=== PATIENT | male | born 1935 | race Caucasian/White ===

== ENCOUNTER → 2017-12-03 | Outpatient (CLI) | payer MEDICARE ==
--- NOTE | 2017-12-03 10:57 | ECHOS ---
STRESS ECHOCARDIOGRAM INDICATIONS: Chest pain. BASELINE HEART RATE: 77 BASELINE BLOOD PRESSURE: 110/39 MAXIMUM HEART RATE: 131 MAXIMUM BLOOD PRESSURE: 160/42 85% MPHR: 119 100% MPHR: 140 METS: 7.0 MAXIMUM STAGE REACHED: 2 TOTAL EXERCISE TIME: 5:00 CLINICAL INFORMATION: Baseline rhythm is sinus mechanism, normal axis and intervals, normal echocardiogram, rate off 77, baseline blood pressure 110/39 mmHg. Patient exercised on Maycol protocol for 5 minute reaching peak rate 131 beats per minute which is equal to 93% maximum predicted heart rate. Peak blood pressure 160/42 mmHg. Test was terminated due to fatigue and dyspnea. There was no chest pain. Electrocardiograph monitoring revealed [address]-segment depression inferolateral leads that resolved slowly in recovery. FINDINGS: Baseline echocardiogram revealed normal function at peak exercise, there was mild hypokinesis in the inferolateral leads that improved in recovery. CONCLUSION: 1. Good exercise tolerance with positive electrocardiograph stress testing. 2. Probably abnormal stress echocardiogram because of the quality of the images raising the possibility of inferolateral wall ischemia. MMODL / IJN: [id number] /
--- NOTE | 2017-12-03 11:09 | HP ---
HISTORY AND PHYSICAL Patient will be admitted to undergo cardiac catheterization on December 05, 2017. Mr. Kearney is an 82-year-old male with known history of hypertension, hyperlipidemia, diabetes mellitus, who has been complaining of progressive dyspnea on exertion without associated chest discomfort. He has no history of peripheral edema. No PND. No orthopnea. No dizziness. No palpitation or syncope. He has underwent a stress echocardiogram where he walked for 5 minutes, had a [address]-segment depression with questionable inferolateral wall hypokinesis at peak exercise. Patient has no prior stress test. He has questionable history of stroke in the past. His coronary risk factors are remarkable for diabetes, hypertension, hyperlipidemia. He stopped smoking over 30 years ago. MEDICATIONS INCLUDE:: 1. Aspirin. 2. Allopurinol 100 mg daily. 3. Janumet 50-1000 twice a day. 4. Crestor 10 mg daily. 5. Lisinopril 2.5 mg daily. 6. Vitamin C. 7. Insulin. REVIEW OF SYSTEMS: RESPIRATORY SYSTEM: There is no history of documented asthma, emphysema or bronchitis. GI SYSTEM: No recent GI bleeding. No peptic ulcer disease. SYSTEM: No dysuria or hematuria. NERVOUS SYSTEM: No stroke or seizure. PHYSICAL EXAMINATION: An 82-year-old male, alert, oriented, in no apparent distress. Appears younger than stated age. Blood pressure 130/70 with a heart rate in the 60s. HEAD: Normocephalic. EYES: Sclerae nonicteric. NECK: Good upstroke, no bruit, no shunts. CHEST: Clear to auscultation. HEART: Regular rate and rhythm, S1, S2. No S3. No rub or gallop. ABDOMEN: Soft, nontender, positive bowel sounds, no organomegaly. EXTREMITIES: No edema, intact pulses. IMPRESSION: 1. Symptoms of progressive dyspnea on exertion with abnormal stress echocardiogram consistent with stress-induced ischemia. 2. Hypertension. 3. Hyperlipidemia. 4. Diabetes mellitus. RECOMMENDATION: I recommend proceeding with coronary angiography to assess his status and guide his treatment. The rationale behind the procedures, risks and complication were discussed with the patient who is in full understanding and agreement. An echocardiogram with Doppler will be obtained and depending on the results of testing, further recommendation will be made. MMODL / IJN: [id number] /
== END | disposition home or self-care (01) ==
LOC: RADNMMAIN 08:39
PROVIDERS: ATTEND Internal Medicine
DX: I20.8 Other forms of angina pectoris (principal)
CPT/HCPCS: 93351

== ENCOUNTER → 2017-12-03 | Outpatient (CLI) | payer MEDICARE ==
[2017-12-03 13:31] LABS: Basophils % (A) 1 %; Eosinophils # (A) 0.2 k/uL (0-0.7); Eosinophils % (A) 3 %; HCT 43.2 % (39.0-53.0); Lymphocytes # (A) 1.8 k/uL (1.0-4.8); Lymphocytes % (A) 29 %; MCH 29.1 pg (25.0-35.0); MCHC 32.4 g/dL (31.0-37.0); MCV 89.6 fL (80.0-100.0); Mean Platelet Volume 8.5; Monocytes # (A) 0.3 k/uL (0-1.0); Monocytes % (A) 5 %; Neutrophils # (A) 3.7 k/uL (1.3-7.7); Neutrophils % (A) 60 %; Platelet Count 103 k/uL (150-450); RBC 4.82 m/uL (4.30-5.90); RDW 14.7 % (11.5-15.5); WBC 6.1 k/uL (3.8-10.6)
[2017-12-03 13:32] LABS: ALT 38 U/L (21-72); AST 48 U/L (17-59); Albumin 4.3 g/dL (3.5-5.0); Alkaline Phosphatase 84 U/L (38-126); Anion Gap 7 mmol/L; Blood Urea Nitrogen 16 mg/dL (9-20); Calcium 9.8 mg/dL (8.4-10.2); Carbon Dioxide 26 mmol/L (22-30); Chloride 110 mmol/L (98-107); Glucose 141 mg/dL (74-99); Sodium 143 mmol/L (137-145); Total Bilirubin 0.7 mg/dL (0.2-1.3); Total Protein 7.2 g/dL (6.3-8.2)
== END | disposition home or self-care (01) ==
LOC: LABWHC1 11:28
PROVIDERS: ATTEND Nurse Practitioner
DX: Z01.812 Encounter for preprocedural laboratory examination (principal); R06.02 Shortness of breath
CPT/HCPCS: 36415; 80053; 85025

== ENCOUNTER → 2017-12-03 | Outpatient (CLI) | payer MEDICARE ==
--- NOTE | 2017-12-03 16:04 | ECHOF ---
Referral Reason:Shortness of Breath, EKG Changes MEASUREMENTS -------- HEIGHT: 177.8 cm WEIGHT: 104.3 kg BP: 110/49 RVIDd: 3.3 cm (< 3.3) IVSd: 1.1 cm (0.6 - 1.1) LVIDd: 5.4 cm (3.9 - 5.3) LVPWd: 1.0 cm (0.6 - 1.1) IVSs: 1.6 cm LVIDs: 3.6 cm LVPWs: 1.4 cm LA Diam: 2.7 cm (2.7 - 3.8) LAESV Index (A-L): 19.53 ml/m Ao Diam: 3.5 cm (2.0 - 3.7) AV Cusp: 2.2 cm (1.5 - 2.6) MV EXCURSION: 18.395 mm (> 18.000) MV EF SLOPE: 43 mm/s (70 - 150) EPSS: 1.3 cm MV E Stevenson: 0.64 m/s MV DecT: 222 ms MV A Stevenson: 0.73 m/s MV E/A Ratio: 0.87 RAP: 5.00 mmHg RVSP: 24.71 mmHg FINDINGS -------- Sinus rhythm. This was a technically good study. The left ventricular size is normal. There is borderline concentric left ventricular hypertrophy. Overall left ventricular systolic function is normal with, an EF between 55 - 60 %. The right ventricle is mildly enlarged. Normal LA size by volume 22+/-6 ml/m2. The right atrium is normal in size. Lipomatous Hypertrophy of the atrial septum is present The aortic valve is trileaflet and appears structurally normal. The mitral valve is normal. Mild tricuspid regurgitation present. Right ventricular systolic pressure is normal at < 35 mmHg. There is no pulmonic regurgitation present. The aortic root size is normal. IVC Not well visulized. There is no pericardial effusion. CONCLUSIONS -------- 1. Sinus rhythm. 2. This was a technically good study. 3. The left ventricular size is normal. 4. There is borderline concentric left ventricular hypertrophy. 5. Overall left ventricular systolic function is normal with, an EF between 55 - 60 %. 6. The right ventricle is mildly enlarged. 7. Normal LA size by volume 22+/-6 ml/m2. 8. Lipomatous Hypertrophy of the atrial septum is present 9. The aortic valve is trileaflet and appears structurally normal. 10. The mitral valve is normal. 11. Mild tricuspid regurgitation present. 12. Right ventricular systolic pressure is normal at < 35 mmHg. 13. There is no pulmonic regurgitation present. 14. The aortic root size is normal. 15. IVC Not well visulized. 16. There is no pericardial effusion. MILK DRIER: Kylie Pizano RDCS
== END | disposition home or self-care (01) ==
LOC: RADECHMAIN 10:56
PROVIDERS: ATTEND Internal Medicine Interventional Cardiology
DX: I07.1 Rheumatic tricuspid insufficiency (principal)
CPT/HCPCS: 93306

== ENCOUNTER 2017-12-05 05:51 | Day surgery (SDC) | payer MEDICARE ==
[2017-12-05] MEDS ORDERED: NITROGLYCERIN SL TABS 0.4 MG TAB SUBLINGUAL PRN (06:20)
[2017-12-05] MEDS ORDERED: ASPIRIN 325 MG TAB PO STA (06:20)
[2017-12-05] MEDS ORDERED: ATORVASTATIN 80 MG TAB PO STA (06:20)
[2017-12-05] MEDS ORDERED: ALPRAZolam 0.25 MG TAB PO PRN (06:20)
[2017-12-05] MEDS ORDERED: ALPRAZolam 0.5 MG TAB PO PRN (06:20)
[2017-12-05] MEDS ORDERED: SODIUM CHLORIDE 0.9% 1,000 ML in EMPTY BAG 1 BAG IV ONE (06:20)
[2017-12-05 07:17] LABS: Glucose,Whole Blood 156 mg/dL (75-99)
[2017-12-05] MEDS ORDERED: fentaNYL (PF) 50 MCG/ML 2 ML AMP ONE (07:33)
[2017-12-05] MEDS ORDERED: LIDOCAINE 1% INJ 10MG/ML (20 ML MDV) ONE (07:33)
[2017-12-05] MEDS ORDERED: VERAPAMIL 2.5 MG/ML 2 ML AMP ONE (07:33)
[2017-12-05] MEDS ORDERED: fentaNYL (PF) 50 MCG/ML 2 ML AMP IV ONE (07:43)
[2017-12-05] MEDS ORDERED: LIDOCAINE 1% INJ 10MG/ML (20 ML MDV) SQ ONE (07:53)
[2017-12-05] MEDS ORDERED: VERAPAMIL SYRINGE (5 MG/10 ML) INTRAARTER ONE ×2 (07:54→07:55)
[2017-12-05] MEDS ORDERED: BIVALIRUDIN BOLUS 250 MG/50 ML IV ONE (08:03)
[2017-12-05] MEDS ORDERED: TICAGRELOR 90 MG TAB ONE (08:04)
[2017-12-05] MEDS ORDERED: BIVALIRUDIN 250 MG in SODIUM CHLORIDE 0.9% 50 ML IV ONE ×2 (08:04→09:01)
[2017-12-05] MEDS ORDERED: TICAGRELOR 90 MG TAB PO ONE (08:06)
[2017-12-05] MEDS ORDERED: IOPAMIDOL-370 125ML BTL INJ ONE (08:15)
[2017-12-05] MEDS ORDERED: IOPAMIDOL-370 100ML BTL INJ ONE ×3 (09:36→09:48)
[2017-12-05] MEDS ORDERED: RX INFO: IV CONTRAST WAS GIVEN 1 EACH MISC MISCELLANE PRN (09:58)
[2017-12-05] MEDS ORDERED: SODIUM CHLORIDE 0.9% 1,000 ML IV SCH (10:00)
[2017-12-05 11:01] VITALS: BMI 31.5
--- NOTE | 2017-12-05 12:05 | CC ---
CARDIAC CATHETERIZATION REPORT Mr. Mesa is an 82-year-old male with a known history of hypertension, hyperlipidemia, diabetes mellitus who has been complaining of dyspnea on exertion. Underwent a stress test where he had ST-segment depression as well as evidence of stress-induced ischemia involving the lateral wall. In view of that, recommendation made regarding cardiac catheterization. The procedures, risks and complications were discussed with the patient who is in full understanding and agreement. PROCEDURE: Patient was brought to the cathode builder in a fasting semi-sedated state after receiving fentanyl and Benadryl and achieving moderate conscious sedated state. Using Xylocaine anesthesia and Seldinger technique, a 6-Welsh sheath was introduced in the right radial artery. Selective right and left angiography performed using 5-Welsh 3.5 bend right and left Nathaniel catheter, multiple views of the coronary artery including hemiaxial views were obtained. Following that, the catheter were removed, images were reviewed. FLUOROSCOPY: There was severe calcification involving all of the coronary arteries. LEFT MAIN: This is a large-sized vessel bifurcating into left circumflex, left anterior descending artery, left main coronary artery has no evidence of high-grade stenosis. LEFT ANTERIOR DESCENDING ARTERY: This is a large-sized vessel reaching toward the apex with a wraparound apex segment, giving rise to two diagonal branch, the left anterior descending artery and the proximal mid segment has intimal disease with area of stenosis of 30% to 40% without any evidence of high-grade stenosis. LEFT CIRCUMFLEX: This is a large nondominant vessel giving rise to 2 obtuse marginal branch in the proximal left circumflex and a calcified tortuous segment that has a 99% stenosis. The rest of the vessel has no high-grade stenosis. RIGHT CORONARY ARTERY: This is a large dominant vessel, bifurcating into PDA and posterolateral segment branches. The right coronary artery in mid segment has diffuse intimal disease of 30%. The rest of the vessel has no high-grade stenosis. LEFT VENTRICULOGRAM: Left ventriculogram was not performed. CONCLUSION: 1. Heavily calcified coronary arteries. 2. Severe critical stenosis involving the proximal left circumflex. 3. Mild to moderate disease in the left anterior descending artery and right coronary artery. RECOMMENDATION: In view of finding anatomy, I recommend proceeding with angioplasty and stenting. The procedures, risks and complications were discussed with the patient who is in full understanding and agreement. MMODL / IJN: [id number] /
--- NOTE | 2017-12-05 12:14 | PTCA ---
PERCUTANEOUSTRANS CORORONARY ANGIOGRAPHY Mr. Mesa is an 82-year-old male with known history of hypertension, hyperlipidemia, and diabetes mellitus, who has had an abnormal stress echocardiogram and was symptomatic, underwent cardiac catheterization, was found to have heavily calcified coronary arteries with critical stenosis involving the proximal left circumflex. In view of that, recommendation was made regarding angioplasty and stenting. The procedure as well as the risks and complication were discussed with the patient who is in full understanding and agreement. PROCEDURE: A 6-Cymro FL 3.5 guiding catheter introduced in system. After cannulating the left main a 0.014 balanced medium weight J-wire was advanced across the lesion and positioned in the distal obtuse marginal branch. Subsequently, a 3.0 x 12 mm Trek balloon was advanced that was unable to cross the lesion that balloon was removed and attempt to advance a 2.0 x 8 mm Trek balloon were unsuccessful as well. The balloon was removed and a whisper 0.014 J-wire was advanced next to the first one and positioned distally. Subsequently attempt to advance the 2.0 x 8 balloon were unsuccessful. That was removed, then a 1.5 x 6 mm Trek balloon was advanced and the balloon will not advance. That balloon was removed and a GuideLiner was advanced after removing the BMW J. Subsequently the 1.5 x 6 mm Trek balloon was advanced and inflations were done. After removing that balloon, a 2.0 x 6 mm Trek balloon was advanced and inflations were done. After that, the balloon was removed and a 3.0 x 12 mm Trek balloon was advanced and inflation up to 20 atmospheres were done inability to open up the lesion completely. After removing that balloon, attempt to advance a 3.0 x 10 mm AngioSculpt balloon were unsuccessful. That was removed and attempt to advance a 3.25 x 12 mm NC Trek was unsuccessful as well as a 2.0 x 8 NC Trek was unsuccessful. At that point, another 0.014 whisper J-wire was advanced distally and exchanged over a FineCross to the Viper stent. After removing the the FineCross, 360 rotational arthrectomy was performed 3 runs. After removing that and exchanging the wire back to whisper J wire and advancing the GuideLiner, attempt to advance the Trek 3.0 x 12 mm was unsuccessful. Subsequently a 2.5 x 8 mm NC Trek balloon was advanced and inflation up to 10 atmospheres were done. The balloon was removed and the GuideLiner was removed. Another whisper J-wire was advanced with the help of the Anjali. The wire was exchanged to a Mailman. Attempt to advance the 3.0 x 12 mm balloon over the Mailman and over the whisper were unsuccessful. At that point, the guiding catheter, the balloon and the guidewire were removed the sheath was removed. Hemostasis was obtained with deployment of a TR band. There was no immediate complication. Patient was returned to his room in stable condition. Of note, the patient received Angiomax per protocol as well as oral loading dose of Brilinta. He had no chest discomfort or EKG changes with the inflation. RESULTS: Unsuccessful angioplasty of the proximal left circumflex with reduction of stenosis from 95% to 80% in a heavily calcified angulated segment. RECOMMENDATION: Patient will be evaluated for possible single bypass surgery. Those findings and recommendation were discussed with the patient and his family and are in full understanding and agreement. Duration of procedure are 1 hour 57 minutes. MMODL / IJN: [id number] /
[2017-12-05 12:27] LABS: Glucose,Whole Blood 111 mg/dL (75-99)
[2017-12-05] MEDS ORDERED: INSULIN ASPART 100 UNIT/ML 1 ML 10 ML VIAL SQ SCH (12:30)
[2017-12-05] MEDS: INSULIN ASPART 100 UNIT/ML 1 ML 10 ML VIAL SQ SCH ×5 (12:31→21:32)
--- NOTE | 2017-12-05 12:35 | P.GSCN ---
<Gio Grant - Last Filed: 12/05/17 12:05> History of Present Illness Consult date: 12/05/17 Reason for Consult: Coronary artery disease, evaluation for myocardial revascularization. Requesting physician: Betsey Luna History of present illness: This is an 82-year-old gentleman who is followed by Dr. Abraham on an outpatient basis. He has a past medical history significant for hyperlipidemia, hypertension, diabetes mellitus type 2 insulin-dependent and a remote history of tobacco dependence which he quit over 35 years ago. Recently, the patient has been complaining of progressive shortness of breath with exertion. He denies any complaints of chest pain, peripheral edema, syncope or palpitations. Subsequently, he was seen by Dr. Luna from cardiology who performed a stress test on the patient on 12/03/2017. The stress test results showed good exercise tolerance although revealed a [address] segment depression with questionable inferolateral wall hypokinesis at peak exercise. A 2-D echocardiogram was also completed which showed a overall left ventricular systolic function to be normal with an ejection fraction between 55 and 60%, and mild tricuspid valve regurgitation. Due to the patient's complaints of progressive shortness of breath and stress test results he was recommended to undergo a cardiac catheterization. After consent was obtained Dr. Luna performed a cardiac catheterization today which demonstrated heavily calcified coronary arteries, with a 30-40% stenosis to his proximal and mid segment of his left anterior descending coronary artery, a 99% stenosis to his proximal left circumflex coronary artery, and a 30% stenosis to his right coronary artery with diffuse intimal disease. Subsequently due to his cardiac catheterization findings of a 99% proximal stenosis to his circumflex coronary artery Dr. Luna attempted an unsuccessful PTCA/arthrectomy to the circumflex coronary artery due to heavy calcification. The cardiac catheterization results were reviewed with the patient by Dr. Luna and a consult was placed to Dr. Baires from cardiothoracic surgery for evaluation for possible myocardial revascularization surgery. Review of Systems A 14 point review of systems was completed except as mentioned in HPI. Past Medical History Past Medical History: Diabetes Mellitus, Hyperlipidemia, Hypertension History of Any Multi-Drug Resistant Organisms: None Reported Past Surgical History: Appendectomy, Joint Replacement, Tonsillectomy Additional Past Surgical History / Comment(s): left knee replaced, right rotator cuff SX, COLONOSCOPY, Past Anesthesia/Blood Transfusion Reactions: No Reported Reaction Past Psychological History: No Psychological Hx Reported Smoking Status: Former smoker (Quit over 35 years ago.) Past Alcohol Use History: Rare Additional Past Alcohol Use History / Comment(s): QUIT SMOKING 35 YRS AGO Past Drug Use History: None Reported - Past Family History Mother Family Medical History: Congestive Heart Failure (CHF) Additional Family Medical History / Comment(s): Past away at age 85. Father Additional Family Medical History / Comment(s): from complication from malaria at age 27 Brother(s) Family Medical History: No Reported History Sister(s) Family Medical History: No Reported History Daughter(s) Family Medical History: No Reported History Son(s) Family Medical History: No Reported History Medications and Allergies Home Medications Medication Instructions Recorded Confirmed Type Allopurinol [Zyloprim] 100 mg PO DAILY 02/21/14 12/05/17 History Insulin Glargine,Hum.rec.anlog 80 unit SQ HS 02/21/14 12/05/17 History [Lantus Solostar] Rosuvastatin Calcium [Crestor] 10 mg PO DAILY 02/21/14 12/05/17 History sitaGLIPtin PHOS/metFORMIN HCL 1 tab PO BID 02/21/14 12/04/17 History [Janumet 50-1,000 mg Tablet] Aspirin EC [Ecotrin Low Dose] 325 mg PO BID 08/02/15 12/05/17 History Canagliflozin [Invokana] 100 mg PO DAILY 08/02/15 12/05/17 History INSULIN LISPRO (HumaLOG) [humaLOG] 10 units SQ AC-TID 08/02/15 12/04/17 History Ascorbic Acid [Vitamin C] 250 mg PO DAILY 12/04/17 12/05/17 History Isosorbide Mononitrate ER [Imdur] 30 mg PO DAILY #30 tab 12/07/17 Rx Lisinopril [Zestril] 2.5 mg PO DAILY tab 12/07/17 Rx Metoprolol Tartrate [Lopressor] 25 mg PO BID #60 tab 12/07/17 Rx Nitroglycerin Sl Tabs [Nitrostat] 0.4 mg SUBLINGUAL Q5M PRN #30 tab 12/07/17 Rx Allergies Allergy/AdvReac Type Severity Reaction Status Date / Time No Known Allergies Allergy Verified 12/04/17 12:22 Surgical - Exam Vital Signs Temp Pulse Resp BP Pulse Ox 98.7 F 58 L 18 119/59 94 L 12/05/17 06:50 12/05/17 06:50 12/05/17 06:50 12/05/17 06:50 12/05/17 06:50 - General well developed, well nourished, no distress, no pain, obese - Eyes PERRL, normal ocular movement - ENT normal pinna, normal nares, normal mucosa, decreased hearing (Hearing aids to both ears.), poor mcc (Full dentures.) - Neck Neck is supple, no lymphadenopathy. no masses, no bruits, trachea midline, no venous distension - Respiratory Lung sounds essentially clear throughout, diminished to his bilateral bases. Respirations are symmetrical and nonlabored. - Cardiovascular Regular rhythm and rate. S1 and S2 present, negative for S3, gallop or murmur. No peripheral edema. - Abdomen Abdomen is soft, nontender nondistended. Active bowel sounds all 4 abdominal quadrants. No guarding or rigidity. No organomegaly. - Genitourinary Deferred - Rectum Deferred - Integumentary no rash, no growths, no abnormal pigmentation - Neurologic normal coordination, normal sensation - Musculoskeletal normal gait, normal posture - Psychiatric oriented to time, oriented to person, oriented to place, speech is normal, memory intact Results - Labs Abnormal Lab Results - Last 24 Hours (Table) 12/05/17 Range/Units 06:58 POC Glucose (mg/dL) 156 H (75-99) mg/dL - Imaging Comments: Stress test results, 2-D echocardiogram results and cardiac catheterization results reviewed. Assessment and Plan (1) Coronary artery disease Status: Acute Code(s): I25.10 - ATHSCL HEART DISEASE OF [place] CORONARY ARTERY W/O ANG PCTRS SNOMED Code(s): 98988282 (2) Hypertension Status: Acute Code(s): I10 - ESSENTIAL (PRIMARY) HYPERTENSION SNOMED Code(s) : 54362416 (3) Hyperlipidemia Status: Acute Code(s): E78.5 - HYPERLIPIDEMIA, UNSPECIFIED SNOMED Code(s): 44836765 (4) Insulin dependent diabetes mellitus Status: Acute Code(s): E11.9 - TYPE 2 DIABETES MELLITUS WITHOUT COMPLICATIONS ; Z79.4 - GROUP HOME (CURRENT) USE OF INSULIN SNOMED Code(s): 12700770 (5) Tobacco dependence in remission Status: Acute Code(s): F17.201 - NICOTINE DEPENDENCE, UNSPECIFIED, IN REMISSION SNOMED Code(s): 192724305 Plan: Patient was seen and examined. Chart diagnostics reviewed. His case was discussed with Dr. Pavon by Dr. Luna. Preoperative teaching initiated. Preoperative testing initiated. Medical management per Dr. Abraham recommendations. Encourage use of his incentive spirometry every hour while awake. GI and DVT prophylaxis. Thank you Dr. Dr. Luna for this consult and we look forward to working with you in the care of your patient. Time with Patient: Greater than 30 <HabMontrell garcia - Last Filed: 12/08/17 11:57> Surgical - Exam Vital Signs Temp Pulse Resp BP Pulse Ox 98.7 F 58 L 18 119/59 94 L 12/05/17 06:50 12/05/17 06:50 12/05/17 06:50 12/05/17 06:50 12/05/17 06:50 Results - Labs 12/06/17 06:34 12/06/17 06:34 Abnormal Lab Results - Last 24 Hours (Table) 12/07/17 Range/Units 12:04 POC Glucose (mg/dL) 159 H (75-99) mg/dL Microbiology - Last 24 Hours (Table) 12/05/17 19:30 Nasal Screen MRSA/MSSA - Final Nasal Swab Assessment and Plan Plan: The patient was seen and examined. I agree with the above assessment and plan. The patient is an 82-year-old male, who looks good for his advanced age, who reports worsening shortness of breath with activity. Denies chest pain. A stress test was performed which revealed ischemia involving the lateral wall. Heart catheterization revealed a single lesion in the circumflex artery. PCI including atherectomy was attempted by Dr. Luna without success. Apparently the lesion is quite calcified. I was asked to evaluate him for single-vessel coronary artery bypass. We will review his studies and begin our standard preoperative workup. Further recommendations will follow.
--- NOTE | 2017-12-05 13:52 | P.CONS ---
History of Present Illness - Reason for Consult Consult date: 12/05/17 Medical management - History of Present Illness This is an 82-year-old male patient of Dr. Abraham. He has underlying history of diabetes mellitus type 2, hypertension, BPH, hyperlipidemia, remote history of tobacco use. Patient states that he went to see Dr. Abraham for his physical and he complained that when he was pulling weeds he developed shortness of breath and he had to sit down and rest. He underwent a stress test which was positive and was then scheduled for heart catheterization with Dr. Luna which found a 99% stenosis in the proximal left circumflex, 30% stenosis of right coronaries artery and diffuse intimal disease. PTCA and arthrectomy was attempted but unsuccessful of the circumflex lesion. Cardiothoracic surgery was then consulted for 1 vessel CABG. Review of Systems All systems: negative Constitutional: Reports fatigue, Denies chills, Denies fever Eyes: denies blurred vision, denies pain Ears, nose, mouth and throat: Denies headache, Denies sore throat Cardiovascular: Reports decreased exercise tolerance, Reports dyspnea on exertion, Denies chest pain, Denies lightheadedness, Denies shortness of breath , Denies syncope Respiratory: Denies cough, Denies cough with sputum, Denies dyspnea, Denies excessive sputum, Denies hemoptysis, Denies home oxygen, Denies wheezing Gastrointestinal: Denies abdominal pain, Denies diarrhea, Denies nausea, Denies vomiting Genitourinary: Denies dysuria Musculoskeletal: Denies myalgias Integumentary: Denies pruritus, Denies rash Neurological: Denies numbness, Denies weakness Psychiatric: Denies anxiety, Denies depression Endocrine: Denies fatigue, Denies weight change Past Medical History Past Medical History: Coronary Artery Disease (CAD), Diabetes Mellitus, Hyperlipidemia, Hypertension Additional Past Medical History / Comment(s): BPH History of Any Multi-Drug Resistant Organisms: None Reported Past Surgical History: Appendectomy, Joint Replacement, Tonsillectomy Additional Past Surgical History / Comment(s): left knee replaced, right rotator cuff SX, COLONOSCOPY, Past Anesthesia/Blood Transfusion Reactions: No Reported Reaction Past Psychological History: No Psychological Hx Reported Smoking Status: Former smoker Past Alcohol Use History: Occasional Additional Past Alcohol Use History / Comment(s): Patient was a smoker of one pack per day and QUIT SMOKING 35 YRS AGO. He drinks approximately 1 beer/ 3months. Past Drug Use History: None Reported - Past Family History Mother Family Medical History: No Reported History Additional Family Medical History / Comment(s): Mother had history of congenital heart disease, CHF. Father Family Medical History: No Reported History, CVA/TIA Additional Family Medical History / Comment(s): Father contracted malaria. History of CVA. Brother(s) Family Medical History: No Reported History Additional Family Medical History / Comment(s): Brother has history of headaches. Sister(s) Family Medical History: No Reported History Daughter(s) Family Medical History: No Reported History Additional Family Medical History / Comment(s): Patient has one daughter with no major medical problems. Son(s) Family Medical History: No Reported History Additional Family Medical History / Comment(s): Patient has one son with no major medical problems. Medications and Allergies Home Medications Medication Instructions Recorded Confirmed Type Allopurinol [Zyloprim] 100 mg PO DAILY 02/21/14 12/05/17 History Insulin Glargine,Hum.rec.anlog 80 unit SQ HS 02/21/14 12/05/17 History [Lantus Solostar] Rosuvastatin Calcium [Crestor] 10 mg PO DAILY 02/21/14 12/05/17 History sitaGLIPtin PHOS/metFORMIN HCL 1 tab PO BID 02/21/14 12/04/17 History [Janumet 50-1,000 mg Tablet] Aspirin EC [Ecotrin Low Dose] 325 mg PO BID 08/02/15 12/05/17 History Canagliflozin [Invokana] 100 mg PO DAILY 08/02/15 12/05/17 History INSULIN LISPRO (HumaLOG) [humaLOG] 10 units SQ AC-TID 08/02/15 12/04/17 History Lisinopril [Zestril] 2.5 mg PO DAILY 08/02/15 12/05/17 History Ascorbic Acid [Vitamin C] 250 mg PO DAILY 12/04/17 12/05/17 History Allergies Allergy/AdvReac Type Severity Reaction Status Date / Time No Known Allergies Allergy Verified 12/04/17 12:22 Physical Exam Vitals: Vital Signs Temp Pulse Pulse Resp BP BP Pulse Ox 12/05/17 10:43 75 138/66 12/05/17 10:28 79 124/82 10/05/18 10:13 58 L 137/91 97 12/05/17 06:50 98.7 F 58 L 18 119/59 134/71 94 L Intake and Output 12/04/17 12/05/17 12/05/17 22:59 06:59 14:59 Intake Total 452 Output Total 600 Balance -148 Intake: IV 352 Intake, IV Titration 100 Amount Sodium Chloride 0.9% 1, 100 000 ml @ 100 mls/hr IV . Q10H [facility] Rx#:[id number] Output: Urine 600 Other: Weight 99.7 kg 99.7 kg Gen: This is an 82-year-old male patient. He is sitting up in bed appears to be comfortable and in no acute distress. HEENT: Head is atraumatic, normocephalic. Pupils equal, round. Sclerae is anicteric. NECK: Supple. No JVD. No lymphadenopathy. No thyromegaly. LUNGS: Clear to auscultation. No wheezes or rhonchi. No intercostal retractions. HEART: Regular rate and rhythm. No murmur. ABDOMEN: Soft. Bowel sounds are present. No masses. No tenderness. EXTREMITIES: No pedal edema. No calf tenderness. NEUROLOGICAL: Patient is awake, alert and oriented x3. Cranial nerves 2 through 12 are grossly intact. Results Labs: Abnormal Lab Results - Last 24 Hours (Table) 12/05/17 Range/Units 06:58 POC Glucose (mg/dL) 156 H (75-99) mg/dL Assessment and Plan Plan: 1. Coronary artery disease with plan for 1 vessel CABG. Cardiothoracic surgery team on consult. Continue aspirin daily, Lipitor 20 mg daily 2. Diabetes mellitus type 2. Patient is normally on Lantus 80 units which will be decreased to 45 units at bedtime, NovoLog normally 10 units will be decreased to 5 units 3 times daily with meals and NovoLog scale. Invokana, Janumet will be discontinued. Hemoglobin A1c ordered. 3. Hypertension. Continue lisinopril 2.5 mg daily 4. Hyperlipidemia. Continue Lipitor. 5. Benign prostatic hypertrophy. 6. Osteoarthritis, generalized, stable. 7. Remote history of tobacco use. 8. Gout, stable. Continue allopurinol 100 mg daily. 9. GI prophylaxis. Pepcid. Patient will be admitted to the hospital for a minimum of 5 night stay. Discharge plan: To be determined is likely return home. Impression and plan of care have been directed as dictated by the signing physician. Anamaria Black nurse practitioner acting as scribe for signing physician.
--- NOTE | 2017-12-05 18:31 | US ---
EXAMINATION TYPE: US carotid duplex BILAT DATE OF EXAM: 12/05/2017 COMPARISON: NONE CLINICAL HISTORY: PreOp Cardiac Surgery. EXAM MEASUREMENTS: RIGHT: Peak Systolic Velocity (PSV) cm/sec ----- Right CCA: 78.6 ----- Right ICA: 87.9 ----- Right ECA: 95.6 ICA/CCA ratio: 1.1 RIGHT: End Diastole cm/sec ----- Right CCA: 17.5 ----- Right ICA: 19.3 ----- Right ECA: 7.6 LEFT: Peak Systolic Velocity (PSV) cm/sec ----- Left CCA: 75.3 ----- Left ICA: 104.8 ----- Left ECA: 95.0 ICA/CCA ratio: 1.4 LEFT: End Diastole cm/sec ----- Left CCA: 14.2 ----- Left ICA: 22.1 ----- Left ECA: 8.3 VERTEBRALS (direction of flow): Right Vertebral: Antegrade Left Vertebral: Antegrade Rhythm: Normal Mild amount of plaque visualized bilaterally. No elevated velocities, no significant stenosis. IMPRESSION: There is antegrade flow in the vertebral arteries. The images and measurements suggest l ess than 50% stenosis in both internal carotid arteries. Criteria for Assigning % of Stenosis / Diameter reduction (Estimation based on the indirect measurements of the internal carotid artery velocities (ICA PSV). 1. Normal (no stenosis)=ICA PSV < 125 cm/s: ratio < 2.0: ICA EDV<40 cm/s. 2. Less than 50% stenosis=ICA PSV < 125 cm/s: ratio < 2.0: ICA EDV<40 cm/s. 3. 50 to 69% stenosis=ICA PSV of 125 to 230 cm/s: ration 2.0 ? 4.0: ICA EDV 40-100 cm/s. 4. Greater than 70% stenosis to near occlusion= ICA PSV > 230 cm/s: ratio > 4.0: ICA EDV > 100 cm/s. 5. Near occlusion= ICA PSV velocities may be low or undetectable: variable ratio and ICA EDV. 6. Total occlusion=unable to detect flow.
[2017-12-05] MEDS ORDERED: INSULIN DETEMIR 100 UNIT/ML 10 ML VIAL SQ SCH (21:00)
[2017-12-05 21:12] LABS: Appearance,Urine Clear (Clear); Bilirubin,Urine Negative (Negative); Blood,Urine Negative (Negative); Color,Urine Light Yellow; Glucose,Urine (UA) Negative (Negative); Ketones,Urine Negative (Negative); Leukocyte Esterase,Urine Negative (Negative); Nitrite,Urine Negative (Negative); PH, Urine 6.5 (5.0-8.0); Protein,Urine Negative (Negative); Urobilinogen,Urine <2.0 mg/dL (<2.0)
[2017-12-05 21:29] LABS: Glucose,Whole Blood 220 mg/dL (75-99)
[2017-12-05] MEDS: INSULIN DETEMIR 100 UNIT/ML 10 ML VIAL SQ SCH (21:32)
[2017-12-05] MEDS: MUPIROCIN 2% OINT 22 GM TUBE NASAL SCH (21:33)
[2017-12-06 06:21] LABS: Glucose,Whole Blood 135 mg/dL (75-99)
--- NOTE | 2017-12-06 06:34 | XR ---
EXAMINATION TYPE: XR chest 2V DATE OF EXAM: 12/06/2017 HISTORY: PreOp Cardiac Surgery. REFERENCE: Previous study dated 01/31/2016. FINDINGS: Heart size is upper limits of normal. The lungs are clear. Pleural spaces are clear. IMPRESSION: BORDERLINE CARDIOMEGALY.
[2017-12-06] MEDS: INSULIN ASPART 100 UNIT/ML 1 ML 10 ML VIAL SQ SCH ×7 (06:36→20:56)
[2017-12-06 07:07] LABS: Basophils % (A) 1 %; Eosinophils # (A) 0.2 k/uL (0-0.7); Eosinophils % (A) 3 %; HCT 38.3 % (39.0-53.0); HGB 13.2 gm/dL (13.0-17.5); Lymphocytes # (A) 1.7 k/uL (1.0-4.8); Lymphocytes % (A) 26 %; MCH 29.6 pg (25.0-35.0); MCHC 34.4 g/dL (31.0-37.0); MCV 86.1 fL (80.0-100.0); Mean Platelet Volume 7.6; Monocytes # (A) 0.4 k/uL (0-1.0); Monocytes % (A) 6 %; Neutrophils # (A) 4.2 k/uL (1.3-7.7); Neutrophils % (A) 63 %; Platelet Count 103 k/uL (150-450); RBC 4.45 m/uL (4.30-5.90); RDW 14.7 % (11.5-15.5); WBC 6.6 k/uL (3.8-10.6)
[2017-12-06 07:14] LABS: INR 1.1 (<1.2); Partial Thromboplastin Time 25.6 sec (22.0-30.0); Prothrombin Time 10.3 sec (9.0-12.0)
[2017-12-06 07:22] LABS: ALT 47 U/L (21-72); AST 66 U/L (17-59); Albumin 3.8 g/dL (3.5-5.0); Alkaline Phosphatase 90 U/L (38-126); Anion Gap 11 mmol/L; Blood Urea Nitrogen 16 mg/dL (9-20); Calcium 9.4 mg/dL (8.4-10.2); Carbon Dioxide 20 mmol/L (22-30); Chloride 112 mmol/L (98-107); Cholesterol 139 mg/dL (<200); Glucose 130 mg/dL (74-99); HDL Cholesterol 39 mg/dL (40-60); LDL Cholesterol,Calculated 71 mg/dL (0-99); Magnesium 1.8 mg/dL (1.6-2.3); Potassium 4.6 mmol/L (3.5-5.1); Sodium 143 mmol/L (137-145); Total Protein 6.5 g/dL (6.3-8.2); Triglycerides 146 mg/dL (<150)
[2017-12-06] MEDS: ALLOPURINOL 100 MG TAB PO SCH (08:13)
[2017-12-06] MEDS: ASPIRIN 325 MG TAB PO SCH ×2 (08:13→20:57)
[2017-12-06] MEDS: ASCORBIC ACID 500 MG TAB PO SCH (08:13)
[2017-12-06] MEDS: FAMOTIDINE 20 MG TAB PO SCH (08:14)
[2017-12-06] MEDS: MUPIROCIN 2% OINT 22 GM TUBE NASAL SCH ×2 (08:16→20:57)
[2017-12-06] MEDS ORDERED: ATORVASTATIN 20 MG TAB PO SCH (09:00)
[2017-12-06] MEDS ORDERED: NON-FORMULARY DRUG (Canagliflozin [Invokana] 100 MG) PO SCH (09:00)
[2017-12-06] MEDS ORDERED: LISINOPRIL 2.5 MG TAB PO SCH (09:00)
[2017-12-06] MEDS ORDERED: MD COMMUNICATION TO PHARMACY 1 EACH MISC PO ONE ×5 (10:04)
--- NOTE | 2017-12-06 11:20 | P.PN ---
Subjective Progress Note Date: 12/06/17 This is an 82-year-old male patient of Dr. Abraham. He has underlying history of diabetes mellitus type 2, hypertension, BPH, hyperlipidemia, remote history of tobacco use. Patient states that he went to see Dr. Abraham for his physical and he complained that when he was pulling weeds he developed shortness of breath and he had to sit down and rest. He underwent a stress test which was positive and was then scheduled for heart catheterization with Dr. Luna which found a 99% stenosis in the proximal left circumflex, 30% stenosis of right coronaries artery and diffuse intimal disease. PTCA and arthrectomy was attempted but unsuccessful of the circumflex lesion. Cardiothoracic surgery was then consulted for 1 vessel CABG. 12/05: Patient denies any chest pain, shortness of breath, palpitations, or irregular heartbeat at this time. Patient is awaiting cardiothoracic surgeon to evaluate for possible surgery on Friday for a 1 vessel CABG. Discussed with patient plan of care and questions answered. Labs this morning were unremarkable. Blood sugars are stable related to adjustments of home diabetic regime and a sliding scale while in the hospital. Objective - Vital Signs Vital signs: Vital Signs Temp 97.9 F 12/06/17 08:05 Pulse 77 12/06/17 08:05 Resp 18 12/06/17 08:05 BP 116/55 12/06/17 08:05 Pulse Ox 96 12/06/17 08:05 Intake & Output 12/05/17 12/06/17 12/06/17 18:59 06:59 18:59 Intake Total 692 1000 180 Output Total 1000 Balance -308 1000 180 Weight 99.7 kg 97.7 kg Intake: IV 352 Intake, IV Titration 100 1000 Amount Sodium Chloride 0.9% 1, 100 1000 000 ml @ 100 mls/hr IV . Q10H [facility] Rx#:[id number] Oral 240 180 Output: Urine 1000 Other: # Voids 1 - Exam Gen: This is an 82-year-old male, no acute distress noted, cooperative, obese HEENT: Head is atraumatic, normocephalic. Pupils equal, round. Sclerae is anicteric. NECK: Supple. No JVD. No lymphadenopathy. No thyromegaly. LUNGS: Clear to auscultation. No wheezes or rhonchi. No intercostal retractions. HEART: Regular rate and rhythm. No murmur. ABDOMEN: Soft. Bowel sounds are present. No masses. No tenderness. EXTREMITIES: No pedal edema. No calf tenderness. NEUROLOGICAL: Patient is awake, alert and oriented x3. Cranial nerves 2 through 12 are grossly intact. - Labs CBC & Chem 7: 12/06/17 06:34 12/06/17 06:34 Labs: Abnormal Lab Results - Last 24 Hours (Table) 12/05/17 12/05/17 12/06/17 Range/Units 12:25 21:27 06:20 Hct (39.0-53.0) % Plt Count (150-450) k/uL Chloride (98-107) mmol/L Carbon Dioxide (22-30) mmol/L Glucose (74-99) mg/dL POC Glucose (mg/dL) 111 H 220 H 135 H (75-99) mg/dL AST (17-59) U/L HDL Cholesterol (40-60) mg/dL 12/06/17 12/06/17 Range/Units 06:34 06:34 Hct 38.3 L (39.0-53.0) % Plt Count 103 L (150-450) k/uL Chloride 112 H (98-107) mmol/L Carbon Dioxide 20 L (22-30) mmol/L Glucose 130 H (74-99) mg/dL POC Glucose (mg/dL) (75-99) mg/dL AST 66 H (17-59) U/L HDL Cholesterol 39 L (40-60) mg/dL Microbiology - Last 24 Hours (Table) 12/05/17 19:30 Nasal Screen MRSA/MSSA - Preliminary Nasal Swab 12/05/17 19:30 Urine Culture - Preliminary Urine,Voided Assessment and Plan Plan: 1. Coronary artery disease with plan for 1 vessel CABG. Cardiothoracic surgery team on consult. Continue aspirin daily, Lipitor 20 mg daily 2. Diabetes mellitus type 2. Patient is normally on Lantus 80 units which will be decreased to 45 units at bedtime, NovoLog normally 10 units will be decreased to 5 units 3 times daily with meals and NovoLog scale. Invokana, Janumet will be discontinued. Awaiting results of hemoglobin A1c. 3. Hypertension. Continue lisinopril 2.5 mg daily 4. Hyperlipidemia. Continue Lipitor. 5. Benign prostatic hypertrophy, stable. 6. Osteoarthritis, generalized, stable. 7. Remote history of tobacco use. 8. Gout, stable. Continue allopurinol 100 mg daily. 9. GI prophylaxis. Pepcid. 10.0 SSI prophylactics. mupirocin Impression and plan of care have been directed as dictated by the signing physician. Rhiannon Bagley nurse practitioner acting as scribe for signing physician.
--- NOTE | 2017-12-06 11:23 | CT ---
EXAMINATION TYPE: CT chest wo con DATE OF EXAM: 12/06/2017 COMPARISON: HISTORY: pre-op scan CT DLP: 522.1 mGycm. Automated Exposure Control for Dose Reduction was Utilized. TECHNIQUE: CT scan of the thorax is performed without IV contrast. FINDINGS:The lungs are clear. There is bilateral gynecomastia. There is no significant axillary adenopathy. There is some shotty mediastinal adenopathy. No definite hilar adenopathy is seen. There is no pleural or pericardial fluid. The heart is not enlarged. There is vascular calcification including the coronary arteries. Visualized portions of the upper abdomen are unremarkable. There is hypertrophic spondylosis within the spine. IMPRESSION: 1. Bilateral gynecomastia. 2. Arterial calcification including the coronary arteries.
--- NOTE | 2017-12-06 11:46 | P.PN ---
Subjective Progress Note Date: 12/06/17 Principal diagnosis: Coronary artery disease, diabetes mellitus type 2 insulin-dependent, hypertension, hyperlipidemia, BPH, remote history of back or dependence quit 35 years ago. The patient is up ambulating in his room. He denies any complaints of pain or shortness of breath at this time. Dr. Dequan martinez met with him this morning and discussed the risks and benefits of myocardial revascularization surgery. He remains afebrile. Bedside FEV1 was completed which showed a value of 82% of predicted. He is achieving 2200 mL on his incentive spirometry. He wishes to proceed with myocardial revascularization surgery which will be scheduled for Friday12/09/2017. Objective - Vital Signs Vital signs: Vital Signs Temp 97.5 F L 12/06/17 03:34 Pulse 80 12/06/17 03:34 Resp 16 12/06/17 03:34 BP 128/70 12/06/17 03:34 Pulse Ox 95 12/06/17 03:34 Intake & Output 12/05/17 12/06/17 12/06/17 18:59 06:59 18:59 Intake Total 692 1000 180 Output Total 1000 Balance -308 1000 180 Weight 99.7 kg 97.7 kg Intake: IV 352 Intake, IV Titration 100 1000 Amount Sodium Chloride 0.9% 1, 100 1000 000 ml @ 100 mls/hr IV . Q10H [facility] Rx#:[id number] Oral 240 180 Output: Urine 1000 Other: # Voids 1 - Constitutional General appearance: Present: cooperative, no acute distress, obese - Respiratory Details: Lung sounds are essentially clear throughout. Respirations are symmetrical and nonlabored. Oxygen saturation is are 95% on room air. He is achieving 2200 mL on his incentive spirometry. - Cardiovascular Details: Regular rhythm and rate. S1 and S2 present, negative for S3, gallop or murmur. Remote telemetry showing normal sinus rhythm heart rate 75. No edema present. Right radial heart cath site clean dry and intact. No redness or drainage present. Palpable radial and ulnar pulse. - Gastrointestinal Gastrointestinal Comment(s): Abdomen is soft, nontender and nondistended. Active bowel sounds to all 4 abdominal quadrants. Tolerating oral intake. Passing flatus. - Genitourinary Genitourinary Comment(s): Voiding clear yellow urine. - Integumentary Integumentary Comment(s): Skin is warm and dry. No clubbing or cyanosis present. No rash or abnormal pigmentation present. - Neurologic Neurologic Comment(s): No focal deficits. Neurologic: Present: CNII-XII intact - Musculoskeletal Musculoskeletal: Present: gait normal, strength equal bilaterally - Psychiatric Psychiatric: Present: A&O x's 3, appropriate affect, intact judgment & insight - Allied health notes Allied health notes reviewed: nursing - Labs CBC & Chem 7: 12/06/17 06:34 12/06/17 06:34 Labs: Abnormal Lab Results - Last 24 Hours (Table) 12/05/17 12/05/17 12/06/17 Range/Units 12:25 21:27 06:20 Hct (39.0-53.0) % Plt Count (150-450) k/uL Chloride (98-107) mmol/L Carbon Dioxide (22-30) mmol/L Glucose (74-99) mg/dL POC Glucose (mg/dL) 111 H 220 H 135 H (75-99) mg/dL AST (17-59) U/L HDL Cholesterol (40-60) mg/dL 12/06/17 12/06/17 Range/Units 06:34 06:34 Hct 38.3 L (39.0-53.0) % Plt Count 103 L (150-450) k/uL Chloride 112 H (98-107) mmol/L Carbon Dioxide 20 L (22-30) mmol/L Glucose 130 H (74-99) mg/dL POC Glucose (mg/dL) (75-99) mg/dL AST 66 H (17-59) U/L HDL Cholesterol 39 L (40-60) mg/dL Microbiology - Last 24 Hours (Table) 12/05/17 19:30 Nasal Screen MRSA/MSSA - Preliminary Nasal Swab 12/05/17 19:30 Urine Culture - Preliminary Urine,Voided - Imaging and Cardiology Chest x-ray: report reviewed, image reviewed Vein mapping results reviewed, carotid duplex study results reviewed. Assessment and Plan (1) Coronary artery disease Current Visit: Yes Status: Acute Code(s): I25.10 - ATHSCL HEART DISEASE OF [place] CORONARY ARTERY W/O ANG PCTRS SNOMED Code(s): 33395493 (2) Hypertension Current Visit: Yes Status: Acute Code(s): I10 - ESSENTIAL (PRIMARY) HYPERTENSION SNOMED Code(s): 04478811 (3) Hyperlipidemia Current Visit: Yes Status: Acute Code(s): E78.5 - HYPERLIPIDEMIA, UNSPECIFIED SNOMED Code(s): 92780728 (4) Insulin dependent diabetes mellitus Current Visit: Yes Status: Acute Code(s): E11.9 - TYPE 2 DIABETES MELLITUS WITHOUT COMPLICATIONS; Z79.4 - SHELTERED WORKSH[employer] WORKER (CURRENT) USE OF INSULIN SNOMED Code( s): 15227957 (5) Tobacco dependence in remission Current Visit: Yes Status: Acute Code(s): F17.201 - NICOTINE DEPENDENCE, UNSPECIFIED, IN REMISSION SNOMED Code(s): 136411481 (6) BPH (benign prostatic hyperplasia) Current Visit: Yes Status: Acute Code(s): N40.0 - BENIGN PROSTATIC HYPERPLASIA WITHOUT LOWER URINRY TRACT SYMP SNOMED Code(s): 765538202 Plan: 1. Continue preoperative teaching. 2. Preoperative workup in progress. 3. STS risk score calculated and was discussed with the patient by Dr. Baires. 4. Walk test completed time 1: 3.75 seconds, Time 2: 3.46 seconds, Time 3: 3.23 seconds. 5. The patient will be scheduled for myocardial revascularization surgery with SANDHYA YOUNG, intraoperative transesophageal echocardiogram and epi-aortic ultrasound on 12/09/2017 to be performed by Dr. Baires. 6. CT scan of the chest will be completed today to evaluate his aorta. 7. Encourage use of his incentive spirometry every hour while awake. 8. Dr. Diop from pulmonary medicine will be consulted for preoperative evaluation. 9. Medical management per Dr. Clemons's recommendations. 10. More recommendations to follow based on patient's clinical course. Time with Patient: Greater than 30
[2017-12-06 12:02] LABS: Hepatitis A Antibody IgM Non-Reactive (Non-Reactive); Hepatitis B Core IgM Non-Reactive (Non-Reactive)
[2017-12-06 12:18] LABS: Glucose,Whole Blood 204 mg/dL (75-99)
[2017-12-06 13:11] LABS: Hemoglobin A1C 6.8 % (4.0-6.0)
--- NOTE | 2017-12-06 15:35 | P.CNPUL ---
History of Present Illness Consult date: 12/06/17 Reason for consult: chest pain Chief complaint: Preoperative pulmonary evaluation, chest pain History of present illness: This is an 82-year-old gentleman who has a history of hyperlipidemia, hypertension, diabetes mellitus type 2 insulin-dependent and a remote history of tobacco dependence which he quit over 35 years ago. Recently, the patient has been complaining of progressive shortness of breath with exertion. No reported chest pain the patient had a cardiac evaluation with Dr. Luna from cardiology who performed a stress test on the patient on 12/03/2017. The stress test results showed good exercise tolerance although revealed a [address] segment depression with questionable inferolateral wall hypokinesis at peak exercise. A 2-D echocardiogram was also completed which showed a overall left ventricular systolic function to be normal with an ejection fraction between 55 and 60%, and mild tricuspid valve regurgitation. Due to the patient's complaints of progressive shortness of breath and stress test results he was recommended to undergo a cardiac catheterization. After consent was obtained Dr. Luna performed a cardiac catheterization today which demonstrated heavily calcified coronary arteries, with a 30-40% stenosis to his proximal and mid segment of his left anterior descending coronary artery, a 99% stenosis to his proximal left circumflex coronary artery, and a 30% stenosis to his right coronary artery with diffuse intimal disease. Subsequently due to his cardiac catheterization findings of a 99% proximal stenosis to his circumflex coronary artery Dr. Luna attempted an unsuccessful PTCA/arthrectomy to the circumflex coronary artery due to heavy calcification. The cardiac catheterization results were reviewed with the patient by Dr. Luna and a consult was placed to Dr. Baires from cardiothoracic surgery for evaluation for possible myocardial revascularization surgery. The patient is scheduled now to undergo a cardiac bypass surgery next week on Friday. In terms of the primary status, the patient is doing well. No respiratory difficulties. No cough sputum production chest tightness or wheezing. He is not action dependent. He does not use any form of respiratory medications on outpatient basis. His chest x- ray is within normal limits. CAT scan of the chest was also done and it showed no significant abnormalities other than bilateral gynecomastia and coronary artery calcifications. The patient is hemodynamically stable at this point. The patient has no specific complaints. No issues and the tentative plan is to discharge this patient home to be readmitted on Friday for cardiac bypass surgery. Review of Systems Constitutional: Denies chills, Denies fever Eyes: denies blurred vision, denies bulging eye, denies decreased vision Ears: deny: decreased hearing, ear discharge, earache, tinnitus Ears, nose, mouth and throat: Denies headache, Denies sore throat Cardiovascular: Reports decreased exercise tolerance, Reports dyspnea on exertion Respiratory: Reports dyspnea Gastrointestinal: Denies abdominal pain, Denies diarrhea, Denies nausea, Denies vomiting Genitourinary: Reports as per HPI Musculoskeletal: Reports as per HPI Musculoskeletal: absent: ankle pain, ankle stiffness, ankle swelling Integumentary: Denies pruritus, Denies rash Neurological: Reports as per HPI Psychiatric: Denies anxiety, Denies depression Endocrine: Reports as per HPI Hematologic/Lymphatic: Reports as per HPI Allergic/Immunologic: Reports as per HPI Past Medical History Past Medical History: Coronary Artery Disease (CAD), Diabetes Mellitus, Hyperlipidemia, Hypertension Additional Past Medical History / Comment(s): BPH History of Any Multi-Drug Resistant Organisms: None Reported Past Surgical History: Appendectomy, Joint Replacement, Tonsillectomy Additional Past Surgical History / Comment(s): left knee replaced, right rotator cuff SX, COLONOSCOPY, Past Anesthesia/Blood Transfusion Reactions: No Reported Reaction Past Psychological History: No Psychological Hx Reported Smoking Status: Former smoker Past Alcohol Use History: Occasional Additional Past Alcohol Use History / Comment(s): Patient was a smoker of one pack per day and QUIT SMOKING 35 YRS AGO. He drinks approximately 1 beer/ 3months. Past Drug Use History: None Reported - Past Family History Mother Family Medical History: No Reported History Additional Family Medical History / Comment(s): Mother had history of congenital heart disease, CHF. Father Family Medical History: No Reported History, CVA/TIA Additional Family Medical History / Comment(s): Father contracted malaria. History of CVA. Brother(s) Family Medical History: No Reported History Additional Family Medical History / Comment(s): Brother has history of headaches. Sister(s) Family Medical History: No Reported History Daughter(s) Family Medical History: No Reported History Additional Family Medical History / Comment(s): Patient has one daughter with no major medical problems. Son(s) Family Medical History: No Reported History Additional Family Medical History / Comment(s): Patient has one son with no major medical problems. Medications and Allergies Home Medications Medication Instructions Recorded Confirmed Type Allopurinol [Zyloprim] 100 mg PO DAILY 02/21/14 12/05/17 History Insulin Glargine,Hum.rec.anlog 80 unit SQ HS 02/21/14 12/05/17 History [Lantus Solostar] Rosuvastatin Calcium [Crestor] 10 mg PO DAILY 02/21/14 12/05/17 History sitaGLIPtin PHOS/metFORMIN HCL 1 tab PO BID 02/21/14 12/04/17 History [Janumet 50-1,000 mg Tablet] Aspirin EC [Ecotrin Low Dose] 325 mg PO BID 08/02/15 12/05/17 History Canagliflozin [Invokana] 100 mg PO DAILY 08/02/15 12/05/17 History INSULIN LISPRO (HumaLOG) [humaLOG] 10 units SQ AC-TID 08/02/15 12/04/17 History Lisinopril [Zestril] 2.5 mg PO DAILY 08/02/15 12/05/17 History Ascorbic Acid [Vitamin C] 250 mg PO DAILY 12/04/17 12/05/17 History Allergies Allergy/AdvReac Type Severity Reaction Status Date / Time No Known Allergies Allergy Verified 12/04/17 12:22 Physical Exam Vitals: Vital Signs Temp Pulse Pulse Resp BP Pulse Ox 12/06/17 12:00 56 L 18 119/65 94 L 12/06/17 08:05 97.9 F 77 18 116/55 96 12/06/17 03:34 97.5 F L 80 16 128/70 95 12/06/17 03:31 77 18 12/05/17 23:05 98.0 F 77 18 139/74 12/05/17 23:04 18 12/05/17 20:00 98.2 F 71 84 18 145/70 97 12/05/17 16:00 68 Intake and Output 12/06/17 12/06/17 12/06/17 06:59 14:59 22:59 Intake Total 180 Balance 180 Intake: Oral 180 Other: # Voids 1 2 Weight 97.7 kg The patient appeared well nourished and normally developed. Vital signs as documented. Head exam is unremarkable. No scleral icterus or corneal arcus noted. Neck is without jugular venous distension, thyromegaly, or carotid bruits. Carotid upstrokes are brisk bilaterally. Lungs are clear to auscultation and percussion. Cardiac exam reveals the PMI to be normally sized and situated. Rhythm is regular. First and second heart sounds normal. No murmurs, rubs or gallops. Abdominal exam reveals normal bowel sounds, no masses , no organomegaly and no aortic enlargement. Extremities are nonedematous and both femoral and pedal pulses are normal. Neurologically the patient is or 85 and there is no focal logical deficits. Psychiatrically the patient has normal mood and affect.Examination of the skin revealed no evidence of significant rashes, suspicious appearing nevi or other concerning lesions. Results - Laboratory Findings CBC and BMP: 12/06/17 06:34 12/06/17 06:34 PT/INR, D-dimer PT 10.3 sec (9.0-12.0) 12/06/17 06:34 INR 1.1 (<1.2) 12/06/17 06:34 Abnormal lab findings: Abnormal Labs 12/05/17 12/05/17 12/05/17 06:58 12:25 21:27 Hct Plt Count Chloride Carbon Dioxide Glucose POC Glucose (mg/dL) 156 H 111 H 220 H Hemoglobin A1c AST HDL Cholesterol 12/06/17 12/06/17 12/06/17 06:20 06:34 06:34 Hct 38.3 L Plt Count 103 L Chloride Carbon Dioxide Glucose POC Glucose (mg/dL) 135 H Hemoglobin A1c 6.8 H AST HDL Cholesterol 12/06/17 12/06/17 06:34 11:55 Hct Plt Count Chloride 112 H Carbon Dioxide 20 L Glucose 130 H POC Glucose (mg/dL) 204 H Hemoglobin A1c AST 66 H HDL Cholesterol 39 L - Diagnostic Findings Chest x-ray: image reviewed CT scan - chest: image reviewed Assessment and Plan Plan: Assessment 1 coronary artery disease, status post cardiac catheterization and successful PTCA and stenting. The patient will be undergoing a coronary artery bypass surgery next week. 2 exertional dyspnea secondary to above 3 hypertension 4 hyperlipidemia 5 diabetes mellitus 6 BPH 7 osteoarthritis 8 gout Plan No pulmonary contraindications for surgery. In fact the patient has no active pulmonary disease or disorder. We'll obtain a bedside spirometry to assess the patient's FEV1 and FVC. No signs of any oxygen desaturation. The patient should undergo the coronary artery bypass surgery and I do not anticipate any significant pulmonary issues postop based on the current evaluation. We'll provide the patient incentive spirometer. Continue cardiac medication. Blood sugar control per medicine. We'll be following up this patient postop following his cardiac bypass surgery and will manage the ventilator and attend to any pulmonary needs should they arise. Patient was reassured. We'll continue to follow.
[2017-12-06 17:18] LABS: Glucose,Whole Blood 173 mg/dL (75-99)
[2017-12-06 20:51] LABS: Glucose,Whole Blood 178 mg/dL (75-99)
[2017-12-06] MEDS: INSULIN DETEMIR 100 UNIT/ML 10 ML VIAL SQ SCH (20:56)
[2017-12-06] MEDS ORDERED: METOPROLOL TARTRATE 25 MG TAB PO SCH (21:00)
[2017-12-07 05:55] LABS: Glucose,Whole Blood 160 mg/dL (75-99)
[2017-12-07] MEDS: INSULIN ASPART 100 UNIT/ML 1 ML 10 ML VIAL SQ SCH ×4 (06:38→12:39)
[2017-12-07] MEDS: ALLOPURINOL 100 MG TAB PO SCH (08:42)
[2017-12-07] MEDS: ASPIRIN 325 MG TAB PO SCH (08:43)
[2017-12-07] MEDS: FAMOTIDINE 20 MG TAB PO SCH (08:43)
[2017-12-07] MEDS: ASCORBIC ACID 500 MG TAB PO SCH (08:44)
--- NOTE | 2017-12-07 10:21 | P.PN ---
<Gio Grant - Last Filed: 12/07/17 10:15> Subjective Progress Note Date: 12/07/17 Principal diagnosis: Coronary artery disease, diabetes mellitus type 2 insulin-dependent, hypertension, hyperlipidemia, BPH, remote history of back or dependence quit 35 years ago. The patient is sitting up to the bedside edge. He denies any complaints of pain or shortness of breath at this time. The patient reports that he has been ambulating in the [address] [place] [address] without difficulty. He is tolerating oral intake. He is achieving 2200 mL on his incentive spirometry. Room air oxygen saturation is 95%. Objective - Vital Signs Vital signs: Vital Signs Temp 97.8 F 12/07/17 04:00 Pulse 57 L 12/07/17 04:00 Resp 16 12/07/17 04:00 BP 121/69 12/07/17 04:00 Pulse Ox 95 12/07/17 04:00 Intake & Output 12/06/17 12/07/17 12/07/17 18:59 06:59 18:59 Intake Total 180 480 Balance 180 480 Weight 97 kg Intake: Oral 180 480 Other: # Voids 2 1 - Constitutional General appearance: Present: cooperative, no acute distress, obese - Respiratory Details: Lung sounds are essentially clear throughout. Respirations are symmetrical and nonlabored. Oxygen saturation are 95% on room air. He is achieving 2200 mL on his incentive spirometry. Bedside FEV1 82% of predicted value. - Cardiovascular Details: Regular rhythm and rate. S1 and S2 present, negative for S3, gallop or murmur. Remote telemetry showing sinus bradycardia heart rate 57. No edema present. - Gastrointestinal Gastrointestinal Comment(s): Abdomen is soft, nontender and nondistended. Active bowel sounds to all 4 abdominal quadrants. No guarding or rigidity. No organomegaly. - Genitourinary Genitourinary Comment(s): Voiding clear yellow urine. - Integumentary Integumentary Comment(s): Skin is warm and dry. No clubbing or cyanosis present. No rash or abnormal pigmentation present. - Neurologic Neurologic Comment(s): No focal deficits. Neurologic: Present: CNII-XII intact - Musculoskeletal Musculoskeletal: Present: gait normal, strength equal bilaterally - Psychiatric Psychiatric: Present: A&O x's 3, appropriate affect, intact judgment & insight - Allied health notes Allied health notes reviewed: nursing - Labs CBC & Chem 7: 12/06/17 06:34 12/06/17 06:34 Labs: Abnormal Lab Results - Last 24 Hours (Table) 12/06/17 12/06/17 12/06/17 Range/Units 06:34 11:10 11:55 POC Glucose (mg/dL) 204 H (75-99) mg/dL Hemoglobin A1c 6.8 H (4.0-6.0) % Crossmatch See Detail 12/06/17 12/06/17 12/07/17 Range/Units 17:02 20:48 05:50 POC Glucose (mg/dL) 173 H 178 H 160 H (75-99) mg/dL Hemoglobin A1c (4.0-6.0) % Crossmatch Microbiology - Last 24 Hours (Table) 12/05/17 19:30 Urine Culture - Final Urine,Voided - Imaging and Cardiology Chest x-ray: report reviewed, image reviewed Assessment and Plan (1) Coronary artery disease Status: Acute Code(s): I25.10 - ATHSCL HEART DISEASE OF [place] CORONARY ARTERY W/O ANG PCTRS SNOMED Code(s): 08996374 (2) Hypertension Status: Acute Code(s): I10 - ESSENTIAL (PRIMARY) HYPERTENSION SNOMED Code(s) : 43050513 (3) Hyperlipidemia Status: Acute Code(s): E78.5 - HYPERLIPIDEMIA, UNSPECIFIED SNOMED Code(s): 53700131 (4) Insulin dependent diabetes mellitus Status: Acute Code(s): E11.9 - TYPE 2 DIABETES MELLITUS WITHOUT COMPLICATIONS ; Z79.4 - CORRECTION (CURRENT) USE OF INSULIN SNOMED Code(s): 70961414 (5) Tobacco dependence in remission Status: Acute Code(s): F17.201 - NICOTINE DEPENDENCE, UNSPECIFIED, IN REMISSION SNOMED Code(s): 898681188 (6) BPH (benign prostatic hyperplasia) Status: Acute Code(s): N40.0 - BENIGN PROSTATIC HYPERPLASIA WITHOUT LOWER URINRY TRACT SYMP SNOMED Code(s): 935364516 Plan: 1. In view of his one vessel coronary artery disease to the circumflex, it is been discussed with the patient that the initial approach to his treatment should be to optimize him with medical management. The patient is in full agreement of this approach. This was discussed with the patient by Dr. Baires. 2. Medical management per Dr. Clemons's recommendations. 3. More recommendations to follow based on patient's clinical course. Time with Patient: Greater than 30 <Montrell Baires - Last Filed: 12/08/17 12:03> Objective - Vital Signs Vital signs: Vital Signs Temp 97.5 F L 12/07/17 08:30 Pulse 63 12/07/17 11:15 Resp 16 12/07/17 11:15 BP 119/75 12/07/17 11:15 Pulse Ox 95 12/07/17 11:15 - Labs CBC & Chem 7: 12/06/17 06:34 12/06/17 06:34 Labs: Abnormal Lab Results - Last 24 Hours (Table) 12/07/17 Range/Units 12:04 POC Glucose (mg/dL) 159 H (75-99) mg/dL Microbiology - Last 24 Hours (Table) 12/05/17 19:30 Nasal Screen MRSA/MSSA - Final Nasal Swab Assessment and Plan Plan: The patient was seen and examined. I agree with the above assessment and plan. Upon further review of the workup thus far and additional discussion with the patient himself, I think that the patient would be better served with a trial of optimal medical management at this time. If his symptoms do not improve or if he becomes clinically worse, then we can re-discuss surgical options. I did speak at length with the patient regarding my recommendation. All his questions were answered. He seems to understand. I also spoke with Dr. Luna who is in agreement.
[2017-12-07] MEDS ORDERED: LISINOPRIL 2.5 MG TAB PO SCH (10:30)
[2017-12-07] MEDS ORDERED: METOPROLOL TARTRATE 25 MG TAB PO SCH (10:30)
[2017-12-07] MEDS ORDERED: ATORVASTATIN 40 MG TAB PO SCH (10:30)
[2017-12-07 10:31] VITALS: TEMP 97.5
--- NOTE | 2017-12-07 11:32 | P.DS ---
Providers Expected date of discharge: 12/07/17 Attending physician: Betsey Luna Consults: 12/05/17 10:01 Consult Physician Routine Consulting Provider: Katina Valadez Consult Reason/Comments: cabg Do you want consulting provider notified?: Yes 12/05/17 10:42 Consult Physician Routine Consulting Provider: Niko Abraham Consult Reason/Comments: medical management Do you want consulting provider notified?: Yes 12/06/17 10:38 Consult Physician Routine Consulting Provider: Thomas Diop Consult Reason/Comments: Pulmonary management Do you want consulting provider notified?: Already Contacted Primary care physician: Niko Abraham [facility] Course: This is an 82-year-old male patient of Dr. Abraham. He has underlying history of diabetes mellitus type 2, hypertension, BPH, hyperlipidemia, remote history of tobacco use. Patient states that he went to see Dr. Abraham for his physical and he complained that when he was pulling weeds he developed shortness of breath and he had to sit down and rest. He underwent a stress test which was positive and was then scheduled for heart catheterization with Dr. Luna which found a 99% stenosis in the proximal left circumflex, 30% stenosis of right coronaries artery and diffuse intimal disease. PTCA and arthrectomy was attempted but unsuccessful of the circumflex lesion. Cardiothoracic surgery was then consulted for 1 vessel CABG. 12/05: Patient denies any chest pain, shortness of breath, palpitations, or irregular heartbeat at this time. Patient is awaiting cardiothoracic surgeon to evaluate for possible surgery on Friday for a 1 vessel CABG. Discussed with patient plan of care and questions answered. Labs this morning were unremarkable. Blood sugars are stable related to adjustments of home diabetic regime and a sliding scale while in the hospital. 12/06: Patient is resting comfortably in his room. Patient denies any chest pain , shortness of breath, palpitations, or irregular heartbeats. Patient was seen by cardiothoracic for evaluation for possible 1 vessel CABG. The decision was made to treat with optimal medical therapy at this time related to the single- vessel is the circumflex. Case was discussed with Dr. Luna. Patient to be discharged home today with continuation of previously home [place] patient and the addition of metoprolol 25 mg twice a day and sublingual nitro. Plan: 1. Chest pain secondary to coronary artery disease, failed PTCA of circumflex, CABG consult for 1 vessel deferred at this time, will optimize medical management. Continue with aspirin daily, Lipitor 25 mg daily, and metoprolol 25 mg twice a day 2. Diabetes mellitus type 2. Resume Lantus 80 units at bedtime, NovoLog 10 units 3 times a day with meals. Resume Invokana and Janumet. Hemoglobin A1c 6.8. 3. Hypertension. Continue lisinopril 2.5 mg daily 4. Hyperlipidemia. Continue Lipitor. 5. Benign prostatic hypertrophy, stable. 6. Osteoarthritis, generalized, stable. 7. Remote history of tobacco use. 8. Gout, stable. Continue allopurinol 100 mg daily. Disposition: Home with self-care CC: Dr. Abraham and Dr. Luna Impression and plan of care have been directed as dictated by the signing physician. Rhiannon Bagley nurse practitioner acting as scribe for signing physician. Patient Condition at Discharge: Fair Plan - Discharge Summary Discharge Rx Participant: Yes New Discharge Prescriptions: New Lisinopril [Zestril] 2.5 mg PO DAILY tab Metoprolol Tartrate [Lopressor] 25 mg PO BID #60 tab Nitroglycerin Sl Tabs [Nitrostat] 0.4 mg SUBLINGUAL Q5M PRN #30 tab PRN Reason: Chest Pain Continue sitaGLIPtin PHOS/metFORMIN HCL [Janumet 50-1,000 mg Tablet] 1 tab PO BID Rosuvastatin Calcium [Crestor] 10 mg PO DAILY Allopurinol [Zyloprim] 100 mg PO DAILY Insulin Glargine,Hum.rec.anlog [Lantus Solostar] 80 unit SQ HS INSULIN LISPRO (HumaLOG) [humaLOG] 10 units SQ AC-TID Canagliflozin [Invokana] 100 mg PO DAILY Aspirin EC [Ecotrin Low Dose] 325 mg PO BID Ascorbic Acid [Vitamin C] 250 mg PO DAILY Discontinued Lisinopril [Zestril] 2.5 mg PO DAILY Discharge Medication List Allopurinol [Zyloprim] 100 mg PO DAILY 02/21/14 [History] Insulin Glargine,Hum.rec.anlog [Lantus Solostar] 80 unit SQ HS 02/21/14 [History ] Rosuvastatin Calcium [Crestor] 10 mg PO DAILY 02/21/14 [History] sitaGLIPtin PHOS/metFORMIN HCL [Janumet 50-1,000 mg Tablet] 1 tab PO BID [History] Aspirin EC [Ecotrin Low Dose] 325 mg PO BID 08/02/15 [History] Canagliflozin [Invokana] 100 mg PO DAILY 08/02/15 [History] INSULIN LISPRO (HumaLOG) [humaLOG] 10 units SQ AC-TID 08/02/15 [History] Ascorbic Acid [Vitamin C] 250 mg PO DAILY 12/04/17 [History] Lisinopril [Zestril] 2.5 mg PO DAILY tab 12/07/17 [Rx] Metoprolol Tartrate [Lopressor] 25 mg PO BID #60 tab 12/07/17 [Rx] Nitroglycerin Sl Tabs [Nitrostat] 0.4 mg SUBLINGUAL Q5M PRN #30 tab 12/07/17 [Rx ] Follow up Appointment(s)/Referral(s): Niko Abraham MD [Primary Care Provider] - 1 Week Betsey Luna MD [STAFF PHYSICIAN] - 1 Week Discharge Disposition: HOME SELF-CARE
[2017-12-07 12:05] VITALS: BP 119/75; PULSE 63; RESP 16
--- NOTE | 2017-12-07 12:16 | P.DS ---
Providers Attending physician: Betsey Luna Consults: 12/05/17 10:01 Consult Physician Routine Consulting Provider: Katina Valadez Consult Reason/Comments: cabg Do you want consulting provider notified?: Yes 12/05/17 10:42 Consult Physician Routine Consulting Provider: Niko Abraham Consult Reason/Comments: medical management Do you want consulting provider notified?: Yes 12/06/17 10:38 Consult Physician Routine Consulting Provider: Thomas Diop Consult Reason/Comments: Pulmonary management Do you want consulting provider notified?: Already Contacted Primary care physician: Niko Abraham [facility] Course: This is an 82-year-old male patient who presented to the hospital for cardiac catheterization. Was found to have significant coronary artery disease of the circumflex with unsuccessful PTCA. The patient was evaluated by cardiovascular surgery and was not considered a candidate for surgery at this time due to single vessel disease only. The patient's medications have been optimized and he is chest pain-free. We will add Imdur 30 mg daily to his medication regimen and continue his home medications. Patient's right radial puncture site is clear of bleeding or hematoma. He's been up ambulating without any difficulties. He has not had any chest pain overnight and he is deemed stable for discharge home today. He will follow-up with Dr. Luna in 1 week. Pertinent Studies: Cardiac catheterization. Please see operative note for full details. Patient Condition at Discharge: Good Plan - Discharge Summary Discharge Rx Participant: Yes New Discharge Prescriptions: New Lisinopril [Zestril] 2.5 mg PO DAILY tab Metoprolol Tartrate [Lopressor] 25 mg PO BID #60 tab Nitroglycerin Sl Tabs [Nitrostat] 0.4 mg SUBLINGUAL Q5M PRN #30 tab PRN Reason: Chest Pain Isosorbide Mononitrate ER [Imdur] 30 mg PO DAILY #30 tab Continue sitaGLIPtin PHOS/metFORMIN HCL [Janumet 50-1,000 mg Tablet] 1 tab PO BID Rosuvastatin Calcium [Crestor] 10 mg PO DAILY Allopurinol [Zyloprim] 100 mg PO DAILY Insulin Glargine,Hum.rec.anlog [Lantus Solostar] 80 unit SQ HS INSULIN LISPRO (HumaLOG) [humaLOG] 10 units SQ AC-TID Canagliflozin [Invokana] 100 mg PO DAILY Aspirin EC [Ecotrin Low Dose] 325 mg PO BID Ascorbic Acid [Vitamin C] 250 mg PO DAILY Discontinued Lisinopril [Zestril] 2.5 mg PO DAILY Discharge Medication List Allopurinol [Zyloprim] 100 mg PO DAILY 02/21/14 [History] Insulin Glargine,Hum.rec.anlog [Lantus Solostar] 80 unit SQ HS 02/21/14 [History ] Rosuvastatin Calcium [Crestor] 10 mg PO DAILY 02/21/14 [History] sitaGLIPtin PHOS/metFORMIN HCL [Janumet 50-1,000 mg Tablet] 1 tab PO BID [History] Aspirin EC [Ecotrin Low Dose] 325 mg PO BID 08/02/15 [History] Canagliflozin [Invokana] 100 mg PO DAILY 08/02/15 [History] INSULIN LISPRO (HumaLOG) [humaLOG] 10 units SQ AC-TID 08/02/15 [History] Ascorbic Acid [Vitamin C] 250 mg PO DAILY 12/04/17 [History] Isosorbide Mononitrate ER [Imdur] 30 mg PO DAILY #30 tab 12/07/17 [Rx] Lisinopril [Zestril] 2.5 mg PO DAILY tab 12/07/17 [Rx] Metoprolol Tartrate [Lopressor] 25 mg PO BID #60 tab 12/07/17 [Rx] Nitroglycerin Sl Tabs [Nitrostat] 0.4 mg SUBLINGUAL Q5M PRN #30 tab 12/07/17 [Rx ] Follow up Appointment(s)/Referral(s): Betsey Luna MD [STAFF PHYSICIAN] - 1 Week Niko Abraham MD [Primary Care Provider] - 1 Week Discharge Disposition: HOME SELF-CARE
[2017-12-07 12:31] LABS: Glucose,Whole Blood 159 mg/dL (75-99)
--- NOTE | 2017-12-07 14:05 | P.PN ---
Subjective Progress Note Date: 12/07/17 Principal diagnosis: Coronary artery disease This is an 82-year-old gentleman who has a history of hyperlipidemia, hypertension, diabetes mellitus type 2 insulin-dependent and a remote history of tobacco dependence which he quit over 35 years ago. Recently, the patient has been complaining of progressive shortness of breath with exertion. No reported chest pain the patient had a cardiac evaluation with Dr. Luna from cardiology who performed a stress test on the patient on 12/03/2017. The stress test results showed good exercise tolerance although revealed a [address] segment depression with questionable inferolateral wall hypokinesis at peak exercise. A 2-D echocardiogram was also completed which showed a overall left ventricular systolic function to be normal with an ejection fraction between 55 and 60%, and mild tricuspid valve regurgitation. Due to the patient's complaints of progressive shortness of breath and stress test results he was recommended to undergo a cardiac catheterization. After consent was obtained Dr. Luna performed a cardiac catheterization today which demonstrated heavily calcified coronary arteries, with a 30-40% stenosis to his proximal and mid segment of his left anterior descending coronary artery, a 99% stenosis to his proximal left circumflex coronary artery, and a 30% stenosis to his right coronary artery with diffuse intimal disease. Subsequently due to his cardiac catheterization findings of a 99% proximal stenosis to his circumflex coronary artery Dr. Luna attempted an unsuccessful PTCA/arthrectomy to the circumflex coronary artery due to heavy calcification. The cardiac catheterization results were reviewed with the patient by Dr. Luna and a consult was placed to Dr. Baires from cardiothoracic surgery for evaluation for possible myocardial revascularization surgery. The patient is scheduled now to undergo a cardiac bypass surgery next week on Friday. In terms of the primary status, the patient is doing well. No respiratory difficulties. No cough sputum production chest tightness or wheezing. He is not action dependent. He does not use any form of respiratory medications on outpatient basis. His chest x- ray is within normal limits. CAT scan of the chest was also done and it showed no significant abnormalities other than bilateral gynecomastia and coronary artery calcifications. The patient is hemodynamically stable at this point. The patient has no specific complaints. No issues and the tentative plan is to discharge this patient home to be readmitted on Friday for cardiac bypass surgery. On 12/07/2017 patient seen in follow-up on selective care unit, no shortness of breath or chest pain. Patient was seen by cardiothoracic surgery, and decided to proceed with medical treatment at this time. Room air pulse ox is 95%, patient is afebrile, tolerating ambulation. Lung Sounds are clear, no rhonchi or wheezes or rales. Anticipate discharge home today Objective - Vital Signs Vital signs: Vital Signs Temp 97.5 F L 12/07/17 08:30 Pulse 63 12/07/17 11:15 Resp 16 12/07/17 11:15 BP 119/75 12/07/17 11:15 Pulse Ox 95 12/07/17 11:15 Intake & Output 12/06/17 12/07/17 12/07/17 18:59 06:59 18:59 Intake Total 180 480 Balance 180 480 Weight 97 kg Intake: Oral 180 480 Other: # Voids 2 1 - Exam The patient appeared well nourished and normally developed. Vital signs as documented. Head exam is unremarkable. No scleral icterus or corneal arcus noted. Neck is without jugular venous distension, thyromegaly, or carotid bruits. Carotid upstrokes are brisk bilaterally. Lungs are clear to auscultation and percussion. Cardiac exam reveals the PMI to be normally sized and situated. Rhythm is regular. First and second heart sounds normal. No murmurs, rubs or gallops. Abdominal exam reveals normal bowel sounds, no masses , no organomegaly and no aortic enlargement. Extremities are nonedematous and both femoral and pedal pulses are normal. Neurologically the patient is or 85 and there is no focal logical deficits. Psychiatrically the patient has normal mood and affect.Examination of the skin revealed no evidence of significant rashes, suspicious appearing nevi or other concerning lesions. - Labs CBC & Chem 7: 12/06/17 06:34 12/06/17 06:34 Labs: Abnormal Lab Results - Last 24 Hours (Table) 12/06/17 12/06/17 12/06/17 Range/Units 11:10 17:02 20:48 POC Glucose (mg/dL) 173 H 178 H (75-99) mg/dL Crossmatch See Detail 12/07/17 12/07/17 Range/Units 05:50 12:04 POC Glucose (mg/dL) 160 H 159 H (75-99) mg/dL Crossmatch Microbiology - Last 24 Hours (Table) 12/05/17 19:30 Nasal Screen MRSA/MSSA - Final Nasal Swab 12/05/17 19:30 Urine Culture - Final Urine,Voided Assessment and Plan Plan: 1 coronary artery disease, status post cardiac catheterization and successful PTCA and stenting. The patient will be undergoing a coronary artery bypass surgery next week. 2 exertional dyspnea secondary to above 3 hypertension 4 hyperlipidemia 5 diabetes mellitus 6 BPH 7 osteoarthritis 8 gout Plan: Patient is stable from pulmonary standpoint, no active chest pain, no shortness of breath, he is tolerating ambulation, vital signs are stable, he was seen by cardiothoracic surgery, and the plan is to proceed with medical treatment only at this time. Patient is stable for discharge home today pulmonary perspective I performed a history & physical examination of the patient and discussed their management with my nurse practitioner, Isabel Brand. I reviewed the nurse practitioner's note and agree with the documented findings and plan of care. Lung sounds are clear The findings and the impression was discussed with the patient. I attest to the documentation by the nurse practitioner. Time with Patient: Less than 30
[2017-12-08] MEDS ORDERED: ASPIRIN 81 MG PO SCH (09:00)
[2017-12-09] MEDS ORDERED: CLEVIDIPINE BUTYRATE 25 MG in EMPTY BAG 1 BAG IV ONE (05:00)
[2017-12-09] MEDS ORDERED: MANNITOL 25% 12.5 GM/50 ML VIAL IV ONE ×2 (05:00)
[2017-12-09] MEDS ORDERED: PAPAVERINE 360 MG in SODIUM CHLORIDE 0.9% 90 ML IV ONE (05:00)
[2017-12-09] MEDS ORDERED: NOREPINEPHRINE 4 MG in SODIUM CHLORIDE 0.9% 250 ML IV SCH (05:00)
[2017-12-09] MEDS ORDERED: PHENYLEPHRINE-0.9% NACL SYG 1 MG/10 ML SYRINGE IV ONE ×4 (05:00)
[2017-12-09] MEDS ORDERED: HEPARIN SODIUM 1,000 UN/ML (10ML VL) IV ONE (05:00)
[2017-12-09] MEDS ORDERED: PROPOFOL 1,000 MG in EMPTY BAG 1 BAG IV ONE (05:00)
[2017-12-09] MEDS ORDERED: PROTAMINE SULFATE 250 MG in EMPTY BAG 1 BAG IV ONE (05:00)
[2017-12-09] MEDS ORDERED: SODIUM BICARB 8.4% 50 ML SYR (1 MEQ/ML) IV ONE (05:00)
[2017-12-09] MEDS ORDERED: MAGNESIUM SULFATE SYG 4.06 MEQ/ML SYRINGE IV ONE (05:00)
[2017-12-09] MEDS ORDERED: PHENYLEPHRINE 40 MG in SODIUM CHLORIDE 0.9% 250 ML IV ONE (05:00)
[2017-12-09] MEDS ORDERED: INSULIN REGULAR 100 UNIT in SODIUM CHLORIDE 0.9% 100 ML IV ONE (05:00)
[2017-12-09] MEDS ORDERED: DEXTROSE 5% IN WATER 1,000 ML with POTASSIUM CHLORIDE 25 MEQ, SODIUM CHLORIDE 2.5MEQ/ML... IV SCH ×6 (05:00)
[2017-12-09] MEDS ORDERED: ceFAZolin 1,000 MG in SODIUM CHLORIDE 0.9% IRRIGATIO 1,000 ML IRRIGATION ONE (05:00)
[2017-12-09] MEDS ORDERED: NITROGLYCERIN-D5W PMX 25 MG/250 ML BTL IV ONE (05:00)
[2017-12-09] MEDS ORDERED: NITROGLYCERIN-D5W PMX 50 MG in DEXTROSE/WATER 1 250ML.BAG IV ONE (05:00)
[2017-12-09] MEDS ORDERED: ALBUMIN HUMAN 25% 50 ML in EMPTY BAG 1 BAG IVPB ONE (05:00)
[2017-12-09] MEDS ORDERED: HEPARIN SODIUM,PORCINE 5,000 UNIT in SODIUM CHLORIDE 0.9% 500 ML 500 ML IV ONE (05:00)
[2017-12-09] MEDS ORDERED: ceFAZolin 2,000 MG in SODIUM CHLORIDE 0.9% 30 ML IVPB ONE (05:00)
[2017-12-09] MEDS ORDERED: METOPROLOL TARTRATE 12.5 MG TAB PO ONE (05:00)
[2017-12-09] MEDS ORDERED: CHLORHEXIDINE GLUCONATE 15 ML CUP MUCOUS MEM ONE (05:00)
[2017-12-09] MEDS ORDERED: PROTAMINE SULFATE 10 MG/ML 25 ML VIAL IV ONE (05:00)
[2017-12-09] MEDS ORDERED: ATORVASTATIN 10 MG TAB PO ONE (05:00)
[2017-12-09] MEDS ORDERED: DEXTROSE 5% IN WATER 1,000 ML with POTASSIUM CHLORIDE 110 MEQ, MAGNESIUM SULFATE 16 MEQ... IV SCH ×5 (05:00)
[2017-12-09] MEDS ORDERED: ALBUMIN HUMAN 5% 500 ML in EMPTY BAG 1 BAG IVPB ONE ×6 (05:00)
[2017-12-09] MEDS ORDERED: TRANEXAMIC ACID 2,000 MG in SODIUM CHLORIDE 0.9% 180 ML IV ONE (05:00)
[2017-12-09] MEDS ORDERED: CALCIUM CHLORIDE 100 MG/ML 10 ML SYRINGE IVP ONE (05:00)
[2017-12-09] MEDS ORDERED: ASPIRIN 325 MG TAB PO ONE (05:00)
[2017-12-09] MEDS ORDERED: ceFAZolin 2 GM in SODIUM CHLORIDE 0.9% 30 ML IVPB ONE (05:00)
--- NOTE | 2017-12-17 10:40 | P.ARTDOP ---
Arterial Doppler LOWER EXTREMITY ARTERIAL DOPPLER: DATE OF SERVICE: 12/05/2017 Reason for study: Preop CABG. Doppler waveforms: Multiphasic bilaterally throughout. Pulse volume recording: []. Pressure gradients: None. Ankle-brachial indices: Greater than 1 bilaterally. Toe pressures: 140 on the right, 146 on the left Impression: Normal study.
--- NOTE | 2017-12-17 10:41 | P.VSCSTY ---
Greater Saphenous Vein Mapping This is bilateral lower extremity greater saphenous vein mapping. Date of service 12/05/2017 Vein quality and ultrasound appearance no obvious wall changes or intraluminal thrombus. Vein size groin right 8 x 9 groin left 8 x 8 High thigh right 4 x 4 high thigh left 6 x 7 Mid thigh right 4 x 4 mid thigh left 4 x 4 Above-knee right 3 x 3 above-knee left 4 x 4 Below knee right 3 x 4 below- knee left 3 x 3 Mid calf right 3 x 3 mid calf left 2 x 2 Ankle right 3 x 4 ankle left 3 x 3 Impression usable bilateral greater saphenous vein.
== END 2017-12-07 13:17 | disposition home or self-care (01) ==
LOC: CATHCVL 05:51 → 6SEL 09:49 → CATHCVL 12-07 13:17
PROVIDERS: ATTEND Internal Medicine Interventional Cardiology
DX: I25.10 Atherosclerotic heart disease of native coronary artery without angina pectoris (principal); I25.84 Coronary atherosclerosis due to calcified coronary lesion; I77.1 Stricture of artery; I10 Essential (primary) hypertension; I07.1 Rheumatic tricuspid insufficiency; I65.23 Occlusion and stenosis of bilateral carotid arteries; Z82.49 Family history of ischemic heart disease and other diseases of the circulatory system; Z87.891 Personal history of nicotine dependence; E78.5 Hyperlipidemia, unspecified; N40.0 Benign prostatic hyperplasia without lower urinary tract symptoms; M19.90 Unspecified osteoarthritis, unspecified site; M10.9 Gout, unspecified; E11.9 Type 2 diabetes mellitus without complications; Z79.4 Long term (current) use of insulin; Z79.899 Other long term (current) drug therapy; Z79.82 Long term (current) use of aspirin
CPT/HCPCS: 94150; 93454; 92924; 86900; 86901; 80061; 80053; 80074; 84443; 83735; 85025; 85610; 85730; 86850; 81003; 87070; 87086; 83036; 71046; 93970; 93922; 93880; 71250; C1769 ×5; C1887 ×3; C1894; C1725 ×8; C1714; J2001; J3010; J0583; Q9967 ×2; 86920

== ENCOUNTER → 2018-09-29 | Outpatient (CLI) | payer MEDICARE ==
--- NOTE | 2018-09-29 10:18 | US ---
EXAMINATION TYPE: US abdomen complete DATE OF EXAM: 09/29/2018 COMPARISON: NONE CLINICAL HISTORY: D69.6 Thrombocytopenia. EXAM MEASUREMENTS: Liver Length: 15.9 cm Gallbladder Wall: 0.2 cm CBD: 0.4 cm Spleen: 15.7 cm Right Kidney: 11.1 x 4.9 x 4.5 cm Left Kidney: 11.5 x 4.6 x 4.8 cm Patient has severe overlying midline bowel gas limiting study. Technically difficult. Pancreas: Obscured by bowel gas Liver: Increased attenuation, decreased visualization of vessels, suggestive of fatty infiltrate , limited visualization. Gallbladder: wnl Evidence for sonographic Dominguez's sign: no CBD: wnl, limited visualization Spleen: enlarged Right Kidney: wnl Left Kidney: wnl Upper IVC: wnl Abd Aorta: mostly obscured by overlying bowel gas, wnl as seen The intrahepatic portion of the IVC and proximal abdominal aorta are within normal limits. There is no evidence of cholelithiasis. Common bile duct is unremarkable. The visualized portions of the roy creas are homogenous. The spleen is enlarged. Kidneys are symmetric and free of hydronephrosis. No renal lesions are seen. IMPRESSION: 1. Hyperechoic hepatic echotexture most commonly related to hepatic steatosis. Correlate with liver f unction tests. 2. Incidentally noted spinal megaly. 3. Somewhat limited evaluation overall due to overlying bowel gas with obscuration of the abdominal a huy, pancreas, and limited visualization of the liver.
== END | disposition home or self-care (01) ==
LOC: RADUSWWP 07:56
PROVIDERS: ATTEND Internal Medicine Hematology & Oncology
DX: D69.6 Thrombocytopenia, unspecified (principal)
CPT/HCPCS: 76700

== ENCOUNTER → 2019-07-22 | Outpatient (CLI) | payer MEDICARE ==
[2019-07-22 11:32] LABS: Basophils % (A) 1 %; Eosinophils # (A) 0.2 k/uL (0-0.7); Eosinophils % (A) 4 %; HCT 43.8 % (39.0-53.0); HGB 14.2 gm/dL (13.0-17.5); Hypochromasia Slight; Lymphocytes # (A) 1.2 k/uL (1.0-4.8); Lymphocytes % (A) 24 %; MCH 28.7 pg (25.0-35.0); MCHC 32.5 g/dL (31.0-37.0); MCV 88.3 fL (80.0-100.0); Mean Platelet Volume 9.1; Monocytes # (A) 0.3 k/uL (0-1.0); Monocytes % (A) 6 %; Neutrophils # (A) 3.3 k/uL (1.3-7.7); Neutrophils % (A) 64 %; RBC 4.96 m/uL (4.30-5.90); RDW 15.4 % (11.5-15.5); WBC 5.1 k/uL (3.8-10.6)
[2019-07-22 14:10] LABS: Platelet Count 81 k/uL (150-450)
[2019-07-22 17:30] LABS: Hemoglobin A1C 7.7 % (4.0-6.0)
[2019-07-22 17:42] LABS: African American GFR (CKD) 91.9 (60.0-200.0); Albumin 4.1 g/dL (3.80-4.90); Albumin/Globulin Ratio 1.86 (1.60-3.17); BUN/Creat Ratio 23.33 Ratio (12.00-20.00); Calcium 9.4 mg/dL (8.7-10.3); Globulin 2.2 g/dL (1.6-3.3); Non-African American GFR(CKD) 79.3 (60.0-200.0); Potassium 5.1 mmol/L (3.5-5.5); Total Bilirubin 0.8 mg/dL (0.3-1.2); Total Protein 6.3 g/dL (6.2-8.2)
== END | disposition home or self-care (01) ==
LOC: LABWHC1 09:35
PROVIDERS: ATTEND Internal Medicine
DX: Z00.00 Encounter for general adult medical examination without abnormal findings (principal); E11.9 Type 2 diabetes mellitus without complications; N40.0 Benign prostatic hyperplasia without lower urinary tract symptoms
CPT/HCPCS: 36415; 80053; 82043; 82570; 83036; 84153; 84443; 85025

== ENCOUNTER → 2020-06-27 | Outpatient (CLI) | payer MEDICARE ==
--- NOTE | 2020-06-27 15:14 | XR ---
EXAMINATION TYPE: XR KUB DATE OF EXAM: 06/27/2020 COMPARISON: NONE HISTORY: Pain TECHNIQUE: Single supine KUB image of the abdomen is obtained FINDINGS: Small bowel demonstrates no evidence for dilatation or air fluid levels. Gas and fecal material is seen in non-distended colon. No convincing evidence for pneumoperitoneum. No unusual calcifications. The lung bases are clear. The osseous structures are intact. IMPRESSION: 1. Overall nonobstructive bowel gas pattern.
== END | disposition home or self-care (01) ==
LOC: RADXRMAIN 14:53
PROVIDERS: ATTEND Internal Medicine
DX: R10.9 Unspecified abdominal pain (principal)
CPT/HCPCS: 74018

== ENCOUNTER → 2020-07-04 | Outpatient (CLI) | payer MEDICARE ==
--- NOTE | 2020-07-04 08:03 | CT ---
EXAMINATION TYPE: CT urogram wo/w con DATE OF EXAM: 07/04/2020 COMPARISON: Ultrasound abdomen September 29, 2018. Abdominal x-ray June 27, 2020 HISTORY: Malignant neoplasm of urinary organs CT DLP: 4516.50 mGycm, Automated Exposure Control for Dose Reduction was Utilized. CONTRAST: CT scan of the abdomen and pelvis is performed without oral and without and with IV Contrast, patient injected with 100ml mL of Isovue 300. Urogram protocol with 3-D reconstructed images created on an [employer] workstation and reviewed. FINDINGS: KUB: Noncontrast images show no renal calculi bilaterally. Postcontrast images show symmetric cortica l medullary uptake and excretion without concerning solid or cystic renal mass or hydronephrosis seen bilaterally. There is [id number] perinephric fluid and fat stranding seen bilaterally which is nonspecific finding. Satisfactory opacification of majority of bilateral ureters. There is lobulated mass in the bladder posterior left aspect near site of left UVJ measuring 3.1 x 3.0 cm axial image 8 2 series 14 x 3.2 cm craniocaudal dimension coronal image 27 series 18 distinct from prostate gland c onsistent with neoplasm. Patency of the distal left ureter jet is still present. Retroaortic left fawn al vein which is normal variant. LUNG BASES: Dependent atelectasis in both bases. LIVER/GB: No significant abnormality is appreciated. PANCREAS: Mild generalized atrophy in the pancreatic head. SPLEEN: Splenomegaly measuring 15.9 cm long axis coronal image 99 series 21. ADRENALS: No significant abnormality is seen. BOWEL: No significant abnormality is seen. PROSTATE/SEMINAL VESICLES: Prostate gland upper limits of normal in size. Adjacent scattered bilatera l pelvic phleboliths. LYMPH NODES: Single enlarged upper abdominal 1.6 x 1.2 cm perigastric lymph node axial image 25. OSSEOUS STRUCTURES: Vacuum disc phenomenon with moderate disc space narrowing L4-L5 and L5-S1 levels. OTHER: Large umbilical hernia containing fat and tiny mesenteric vessels. Moderate calcified plaque o f the aorta extends into branch vessels. 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 No hydron ephrosis seen bilaterally. Nonspecific slightly enlarged upper abdominal lymph node noted.
== END | disposition home or self-care (01) ==
LOC: RADCTMAIN 06:14
PROVIDERS: ATTEND Internal Medicine
DX: C67.9 Malignant neoplasm of bladder, unspecified (principal)
CPT/HCPCS: 74178; 74400; Q9967

== ENCOUNTER 2020-07-19 19:34 | Emergency (ER) | payer MEDICARE ==
[2020-07-19 19:40] VITALS: TEMP 97.7
[2020-07-19] MEDS ORDERED: MORPHINE SULFATE 4 MG/ML SYRINGE IVP STA (20:34)
[2020-07-19 20:38] LABS: Appearance,Urine Cloudy (Clear); Bilirubin,Urine Negative (Negative); Blood,Urine Large (Negative); Color,Urine Light Red; Glucose,Urine (UA) Negative (Negative); Ketones,Urine Negative (Negative); Leukocyte Esterase,Urine Moderate (Negative); Nitrite,Urine Negative (Negative); PH, Urine 5.5 (5.0-8.0); Protein,Urine 1+ (Negative); RBC,Urine >182 /hpf (0-5); Specific Gravity,Urine 1.015 (1.001-1.035); Urobilinogen,Urine <2.0 mg/dL (<2.0); WBC,Urine 26 /hpf (0-5)
[2020-07-19 20:39] LABS: Basophils % (A) 1 %; Eosinophils # (A) 0.1 k/uL (0-0.7); Eosinophils % (A) 1 %; HCT 43.9 % (39.0-53.0); HGB 14.4 gm/dL (13.0-17.5); Lymphocytes % (A) 12 %; MCH 28.8 pg (25.0-35.0); MCHC 32.8 g/dL (31.0-37.0); MCV 87.7 fL (80.0-100.0); Mean Platelet Volume 8.3; Monocytes # (A) 0.3 k/uL (0-1.0); Monocytes % (A) 4 %; Neutrophils # (A) 6.8 k/uL (1.3-7.7); Neutrophils % (A) 83 %; Platelet Count 130 k/uL (150-450); RDW 14.8 % (11.5-15.5); WBC 8.3 k/uL (3.8-10.6)
[2020-07-19 20:40] LABS: Calcium 9.4 mg/dL (8.4-10.2); Potassium 4.6 mmol/L (3.5-5.1); Total Bilirubin 1.1 mg/dL (0.2-1.3); Total Protein 6.4 g/dL (6.3-8.2)
--- NOTE | 2020-07-19 21:28 | CT ---
EXAMINATION TYPE: CT abdomen pelvis w con DATE OF EXAM: 07/19/2020 COMPARISON: 07/04/2020 HISTORY: Nausea and left sided flank pain after bladder surgery today. CT DLP: 1883.1 mGycm Automated exposure control for dose reduction was used. TECHNIQUE: Helical acquisition of images was performed from the lung bases through the pelvis. CONTRAST: Performed without Oral Contrast and with IV Contrast, patient injected with 100ml mL of Isovue 300. FINDINGS: LUNG BASES: No significant abnormality is appreciated. LIVER/GB: No significant abnormality is appreciated. PANCREAS: No significant abnormality is seen. SPLEEN: No significant abnormality is seen. ADRENALS: No significant abnormality is seen. KIDNEYS/URINARY BLADDER: Mild to moderate left hydroureteronephrosis without obstructing calculus see n. Increased left perinephric fat stranding noted. Transition point is just proximal to the ureterove sical junction. No right hydronephrosis or nephrolithiasis. Urinary bladder is decompressed by Chandler catheter with indistinctness of the wall. Tiny urinary bladder gas, likely procedural change. FREE AIR: No free air is visualized. RETROPERITONEAL ADENOPATHY: None visualized REPRODUCTIVE ORGANS: No significant abnormality is seen PELVIC ADENOPATHY: None visualized. OSSEOUS STRUCTURES: No significant abnormality is seen. BOWEL: Small fat-containing ventral hernia, otherwise no significant abnormality is seen. No signifi cant free fluid or air. OTHER: Moderate to advanced atherosclerotic disease. IMPRESSION: MILD TO MODERATE LEFT HYDROURETERONEPHROSIS WITH SURROUNDING INFLAMMATORY CHANGES AND WITHOUT OBSTRUC TING CALCULUS. TRANSITION POINT IS JUST PROXIMAL TO THE UVJ AND STRICTURING CANNOT BE EXCLUDED. RECOM MEND UROLOGIC CONSULTATION. DECOMPRESSED AND INDISTINCT URINARY BLADDER WITH TINY FOCUS OF GAS, MOST COMPATIBLE WITH RECENT POSTS URGICAL CHANGES. NO SIGNIFICANT FLUID COLLECTION. Incidental findings as above.
--- NOTE | 2020-07-19 21:49 | ED ---
General Adult HPI - General Chief complaint: Abdominal Pain Stated complaint: Flank Pain Time Seen by Provider: 07/19/20 19:59 Source: patient, family Mode of arrival: ambulatory Limitations: no limitations - History of Present Illness Initial comments: 85-year-old male patient presents to the emergency department today for evaluation of left-sided abdominal and flank pain. 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 Navarrete. States that he has indwelling justice catheter, urine has been dark. States a couple of hours ago he started to have left flank and left sided abdominal pain. States he has had intermittent nausea, no vomiting. Reports chills, no fever. States urine has been draining into the justice bag. Patient denies any recent rash, cough, shortness of breath, chest pain, diarrhea, constipation, back pain, numbness, tingling, dizziness, weakness, headache, visual changes, or any other complaints. - Related Data Home Medications Medication Instructions Recorded Confirmed Insulin Glargine,Hum.rec.anlog 80 unit SQ HS 02/21/14 12/05/17 [Lantus Solostar] Rosuvastatin Calcium [Crestor] 10 mg PO DAILY 02/21/14 12/05/17 allopurinoL [Zyloprim] 100 mg PO DAILY 02/21/14 12/05/17 sitaGLIPtin PHOS/metFORMIN HCL 1 tab PO BID 02/21/14 12/04/17 [Janumet 50-1,000 mg Tablet] Aspirin EC [Ecotrin Low Dose] 325 mg PO BID 08/02/15 12/05/17 Canagliflozin [Invokana] 100 mg PO DAILY 08/02/15 12/05/17 INSULIN LISPRO (HumaLOG) [humaLOG] 10 units SQ AC-TID 08/02/15 12/04/17 Ascorbic Acid [Vitamin C] 250 mg PO DAILY 12/04/17 12/05/17 Previous Rx's Medication Instructions Recorded Isosorbide Mononitrate ER [Imdur] 30 mg PO DAILY #30 tab 12/07/17 Metoprolol Tartrate [Lopressor] 25 mg PO BID #60 tab 12/07/17 Nitroglycerin Sl Tabs [Nitrostat] 0.4 mg SUBLINGUAL Q5M PRN #30 tab 12/07/17 lisinopriL [Zestril] 2.5 mg PO DAILY tab 10/07/18 Acetaminophen-Codeine 300-30mg 1 tab PO Q6H PRN #12 tablet 07/19/20 [Tylenol #3] Allergies Allergy/AdvReac Type Severity Reaction Status Date / Time No Known Allergies Allergy Verified 07/19/20 19:40 Review of Systems ROS Statement: Those systems with pertinent positive or pertinent negative responses have been documented in the HPI. ROS Other: All systems not noted in ROS Statement are negative. Past Medical History Past Medical History: Coronary Artery Disease (CAD), Diabetes Mellitus, Hyperlipidemia, Hypertension Additional Past Medical History / Comment(s): BPH History of Any Multi-Drug Resistant Organisms: None Reported Past Surgical History: Appendectomy, Joint Replacement, Tonsillectomy Additional Past Surgical History / Comment(s): left knee replaced, right rotator cuff SX, COLONOSCOPY, Past Anesthesia/Blood Transfusion Reactions: No Reported Reaction Past Psychological History: No Psychological Hx Reported Past Alcohol Use History: Occasional Past Drug Use History: None Reported - Past Family History Mother Family Medical History: No Reported History Additional Family Medical History / Comment(s): Mother had history of congenital heart disease, CHF. Father Family Medical History: No Reported History, CVA/TIA Additional Family Medical History / Comment(s): Father contracted malaria. History of CVA. Brother(s) Family Medical History: No Reported History Additional Family Medical History / Comment(s): Brother has history of headaches. Sister(s) Family Medical History: No Reported History Daughter(s) Family Medical History: No Reported History Additional Family Medical History / Comment(s): Patient has one daughter with no major medical problems. Son(s) Family Medical History: No Reported History Additional Family Medical History / Comment(s): Patient has one son with no major medical problems. General Exam Limitations: no limitations General appearance: alert, in no apparent distress, other (This is a well developed, well nourished adult male patient in no acute distress. Vital signs upon presentation tempt 97.7, pulse 75, resp 18, BP 142/72, Pulse ox 95% room air. ) Eye exam: Present: normal appearance, PERRL, EOMI. Absent: scleral icterus, conjunctival injection, periorbital swelling ENT exam: Present: normal exam, normal oropharynx, mucous membranes moist Respiratory exam: Present: normal lung sounds bilaterally. Absent: respiratory distress, wheezes, rales, rhonchi, stridor Cardiovascular Exam: Present: regular rate, normal rhythm, normal heart sounds. Absent: systolic murmur, diastolic murmur, rubs, gallop, clicks GI/Abdominal exam: Present: soft, tenderness (Left mid abdomen), normal bowel sounds. Absent: distended, guarding, rebound, rigid Back exam: Present: normal inspection, CVA tenderness (L). Absent: CVA tenderness (R) Neurological exam: Present: alert, oriented X3, CN II-XII intact Psychiatric exam: Present: normal affect, normal mood Skin exam: Present: warm, dry, intact, normal color. Absent: rash Course Vital Signs 07/19/20 07/19/20 19:37 22:25 Temperature 97.7 F Pulse Rate 75 88 Respiratory 18 16 Rate Blood Pressure 142/72 159/94 O2 Sat by Pulse 95 96 Oximetry Medical Decision Making - Medical Decision Making 85 year-old male patient presents to the emergency department for evaluation of left flank and abdominal pain after having a tumor removed from his bladder earlier today. Procedure was at the [facility] with Dr. Navarrete. Physical examination reveals left flank and left mid abdomen tenderness. There is 400ml of tea colored urine in the justice bag, this has not been drained since 4pm. Vitals are unremarkable. Labs are unremarkable. Did have a large blood in urine. CT abdomen and pelvis was obtained and did reveal left-sided hydronephrosis with a transition point in the left distal ureter. Dr. Navarrete was consulted, states that surgical site is near the left UVJ and CT findings are most likely due to edema. Patient was given option to stay for pain management or to be discharged with pain medication. He would like to try going home. He is given script for Tylenol #3. He will call Dr. Navarrete' office in the morning for further instructions. Return parameters are discussed in detail. He verbalizes understanding and agrees with this plan. Case discussed with my attending Dr. Sanches. - Lab Data Result diagrams: 07/19/20 20:22 07/19/20 20:22 Lab Results 07/19/20 07/19/20 07/19/20 Range/Units 20:22 20:22 20:22 WBC 8.3 (3.8-10.6) k/uL RBC 5.00 (4.30-5.90) m/uL Hgb 14.4 (13.0-17.5) gm/dL Hct 43.9 (39.0-53.0) % MCV 87.7 (80.0-100.0) fL MCH 28.8 (25.0-35.0) pg MCHC 32.8 (31.0-37.0) g/dL RDW 14.8 (11.5-15.5) % Plt Count 130 L (150-450) k/uL MPV 8.3 Neutrophils % 83 % Lymphocytes % 12 % Monocytes % 4 % Eosinophils % 1 % Basophils % 1 % Neutrophils # 6.8 (1.3-7.7) k/uL Lymphocytes # 1.0 (1.0-4.8) k/uL Monocytes # 0.3 (0-1.0) k/uL Eosinophils # 0.1 (0-0.7) k/uL Basophils # 0.0 (0-0.2) k/uL Sodium 137 (137-145) mmol/L Potassium 4.6 (3.5-5.1) mmol/L Chloride 109 H (98-107) mmol/L Carbon Dioxide 21 L (22-30) mmol/L Anion Gap 7 mmol/L BUN 21 H (9-20) mg/dL Creatinine 1.00 (0.66-1.25) mg/dL Est GFR (CKD-EPI)AfAm 80 (>60 ml/min/1.73 sqM) Est GFR (CKD-EPI)NonAf 69 (>60 ml/min/1.73 sqM) Glucose 201 H (74-99) mg/dL Plasma Lactic Acid Jamar (0.7-2.0) mmol/L Calcium 9.4 (8.4-10.2) mg/dL Total Bilirubin 1.1 (0.2-1.3) mg/dL AST 46 (17-59) U/L ALT 29 (4-49) U/L Alkaline Phosphatase 83 (38-126) U/L Total Protein 6.4 (6.3-8.2) g/dL Albumin 4.0 (3.5-5.0) g/dL Lipase 29 (23-300) U/L Urine Color Light Red Urine Appearance Cloudy (Clear) Urine pH 5.5 (5.0-8.0) Ur Specific [place] 1.015 (1.001-1.035) Urine Protein 1+ H (Negative) Urine Glucose (UA) Negative (Negative) Urine Ketones Negative (Negative) Urine Blood Large H (Negative) Urine Nitrite Negative (Negative) Urine Bilirubin Negative (Negative) Urine Urobilinogen <2.0 (<2.0) mg/dL Ur Leukocyte Esterase Moderate H (Negative) Urine RBC >182 H (0-5) /hpf Urine WBC 26 H (0-5) /hpf 07/19/20 Range/Units 20:22 WBC (3.8-10.6) k/uL RBC (4.30-5.90) m/uL Hgb (13.0-17.5) gm/dL Hct (39.0-53.0) % MCV (80.0-100.0) fL MCH (25.0-35.0) pg MCHC (31.0-37.0) g/dL RDW (11.5-15.5) % Plt Count (150-450) k/uL MPV Neutrophils % % Lymphocytes % % Monocytes % % Eosinophils % % Basophils % % Neutrophils # (1.3-7.7) k/uL Lymphocytes # (1.0-4.8) k/uL Monocytes # (0-1.0) k/uL Eosinophils # (0-0.7) k/uL Basophils # (0-0.2) k/uL Sodium (137-145) mmol/L Potassium (3.5-5.1) mmol/L Chloride (98-107) mmol/L Carbon Dioxide (22-30) mmol/L Anion Gap mmol/L BUN (9-20) mg/dL Creatinine (0.66-1.25) mg/dL Est GFR (CKD-EPI)AfAm (>60 ml/min/1.73 sqM) Est GFR (CKD-EPI)NonAf (>60 ml/min/1.73 sqM) Glucose (74-99) mg/dL Plasma Lactic Acid Jamar 1.4 (0.7-2.0) mmol/L Calcium (8.4-10.2) mg/dL Total Bilirubin (0.2-1.3) mg/dL AST (17-59) U/L ALT (4-49) U/L Alkaline Phosphatase (38-126) U/L Total Protein (6.3-8.2) g/dL Albumin (3.5-5.0) g/dL Lipase (23-300) U/L Urine Color Urine Appearance (Clear) Urine pH (5.0-8.0) Ur Specific [place] (1.001-1.035) Urine Protein (Negative) Urine Glucose (UA) (Negative) Urine Ketones (Negative) Urine Blood (Negative) Urine Nitrite (Negative) Urine Bilirubin (Negative) Urine Urobilinogen (<2.0) mg/dL Ur Leukocyte Esterase (Negative) Urine RBC (0-5) /hpf Urine WBC (0-5) /hpf - Radiology Data Radiology results: report reviewed, image reviewed CT abdomen and pelvis is obtained. Report reviewed in its entirety. Impression by Dr. Linton shows mild to moderate left hydroureteronephrosis with surrounding inflammatory changes and without obstructing calculus. Transition point is just proximal to the UVJ and stricturing cannot be excluded. Recommend urologic consultation. Decompressed and indistinct urinary bladder with tiny focus of gas, most compatible with recent postsurgical changes. No significant fluid collection. Disposition Clinical Impression: Hydronephrosis, left, Ureteral obstruction, left Disposition: HOME SELF-CARE Condition: Good Instructions (If sedation given, give patient instructions): Flank Pain (ED), Hydronephrosis (ED) Additional Instructions: Take medications as directed. Follow-up with your urologist in the morning. Return to the emergency department for any new, worsening, or concerning symptoms. Prescriptions: Acetaminophen-Codeine 300-30mg [Tylenol #3] 1 tab PO Q6H PRN #12 tablet PRN Reason: Pain Is patient prescribed a controlled substance at d/c from ED?: No Referrals: Niko Abraham MD [Primary Care Provider] - 1-2 days Alphonse Navarrete MD [STAFF PHYSICIAN] - 1-2 days Time of Disposition: 22:20
[2020-07-19] MEDS ORDERED: ACET/COD 300 MG/30 MG STARTER PACK 6 TAB BTL PO STA (22:20)
[2020-07-19 22:33] VITALS: BP 159/94; PULSE 88; RESP 16
== END 2020-07-19 22:33 | disposition home or self-care (01) ==
LOC: EC 19:34
DX: N13.1 Hydronephrosis with ureteral stricture, not elsewhere classified (principal); I25.10 Atherosclerotic heart disease of native coronary artery without angina pectoris; E11.9 Type 2 diabetes mellitus without complications; E78.5 Hyperlipidemia, unspecified; I10 Essential (primary) hypertension; N40.0 Benign prostatic hyperplasia without lower urinary tract symptoms; Z79.4 Long term (current) use of insulin; Z79.82 Long term (current) use of aspirin; Z96.0 Presence of urogenital implants; Z90.89 Acquired absence of other organs
CPT/HCPCS: 36415; 80053; 83605; 83690; 85025; 81001; 87086; 74177; 99284; 96374; J2270; Q9967

== ENCOUNTER → 2020-09-06 | Outpatient (CLI) | payer MEDICARE | END | disposition home or self-care (01) | CPT/HCPCS: 76770 ==

== ENCOUNTER 2020-10-04 12:57 | Observation (INO) | payer MEDICARE ==
--- NOTE | 2020-10-04 14:51 | ED ---
General Adult HPI - General Chief complaint: Chest Pain Stated complaint: Chest pain Time Seen by Provider: 10/04/20 13:05 Source: patient, RN notes reviewed, old records reviewed Mode of arrival: wheelchair Limitations: no limitations - History of Present Illness Initial comments: This is an 85-year-old male who states that about 3:30 this morning he woke up with some chest pain. Patient states she was mildly short of breath and the pain radiated to his jaw when it initially started. Patient states currently the pain is almost gone but is still there slightly but there is no Pain. Patient denies any diaphoretic episodes or nausea. 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 Patient states she's also diabetic with high blood pressure high cholesterol. Patient denies any smoking history. Patient denies any recent fever chills or cough per patient denies any abdominal pain. Patient denies any vomiting or diarrhea. Patient denies lightheadedness or dizziness. Patient denies any swelling to her legs or calf tenderness. - Related Data Home Medications Medication Instructions Recorded Confirmed Insulin Glargine,Hum.rec.anlog 65 unit SQ HS 02/21/14 10/04/20 [Lantus Solostar] Rosuvastatin Calcium [Crestor] 10 mg PO DAILY 02/21/14 10/04/20 allopurinoL [Zyloprim] 100 mg PO DAILY 02/21/14 10/04/20 sitaGLIPtin PHOS/metFORMIN HCL 1 tab PO DAILY 02/21/14 10/04/20 [Janumet 50-1,000 mg Tablet] Aspirin EC [Ecotrin Low Dose] 81 mg PO DAILY 08/02/15 10/04/20 Canagliflozin [Invokana] 100 mg PO DAILY 08/02/15 10/04/20 Insulin Lispro [humaLOG Kwikpen] 10 unit SQ AC-TID 10/04/20 10/04/20 Previous Rx's Medication Instructions Recorded Metoprolol Tartrate [Lopressor] 25 mg PO BID #60 tab 12/07/17 Nitroglycerin Sl Tabs [Nitrostat] 0.4 mg SUBLINGUAL Q5M PRN #30 tab 12/07/17 lisinopriL [Zestril] 2.5 mg PO DAILY tab 12/07/17 Allergies Allergy/AdvReac Type Severity Reaction Status Date / Time No Known Allergies Allergy Verified 10/04/20 15:43 Review of Systems ROS Statement: Those systems with pertinent positive or pertinent negative responses have been documented in the HPI. ROS Other: All systems not noted in ROS Statement are negative. Past Medical History Past Medical History: Coronary Artery Disease (CAD), Cancer, Diabetes Mellitus, Hyperlipidemia, Hypertension Additional Past Medical History / Comment(s): BPH bladder cancer History of Any Multi-Drug Resistant Organisms: None Reported Past Surgical History: Appendectomy, Bladder Surgery, Joint Replacement, Tonsillectomy Additional Past Surgical History / Comment(s): left knee replaced, right rotator cuff SX, COLONOSCOPY, Past Anesthesia/Blood Transfusion Reactions: No Reported Reaction Past Psychological History: No Psychological Hx Reported Smoking Status: Never smoker Past Alcohol Use History: Occasional Past Drug Use History: None Reported - Past Family History Mother Family Medical History: No Reported History Additional Family Medical History / Comment(s): Mother had history of congenital heart disease, CHF. Father Family Medical History: No Reported History, CVA/TIA Additional Family Medical History / Comment(s): Father contracted malaria. History of CVA. Brother(s) Family Medical History: No Reported History Additional Family Medical History / Comment(s): Brother has history of headaches. Sister(s) Family Medical History: No Reported History Daughter(s) Family Medical History: No Reported History Additional Family Medical History / Comment(s): Patient has one daughter with no major medical problems. Son(s) Family Medical History: No Reported History Additional Family Medical History / Comment(s): Patient has one son with no major medical problems. General Exam - General Exam Comments Initial Comments: GENERAL: Patient is well-developed and well-nourished. Patient is nontoxic and well- hydrated and is in mild distress. ENT: Neck is soft and supple. No significant lymphadenopathy is noted. Oropharynx is clear. Moist mucous membranes. Neck has full range of motion without eliciting any pain. EYES: The sclera were anicteric and conjunctiva were pink and moist. Extraocular movements were intact and pupils were equal round and reactive to light. Eyelids were unremarkable. PULMONARY: Unlabored respirations. Good breath sounds bilaterally. No audible rales rhonchi or wheezing was noted. CARDIOVASCULAR: There is a regular rate and rhythm without any murmurs gallops or rubs. ABDOMEN: Soft and nontender with normal bowel sounds. SKIN: Skin is clear with no lesions or rashes and otherwise unremarkable. NEUROLOGIC: Patient is alert and oriented x3. Cranial nerves II through XII are grossly intact. Motor and sensory are also intact. Normal speech, volume and content. Symmetrical smile. MUSCULOSKELETAL: Normal extremities with adequate strength and full range of motion. No lower extremity swelling or edema. No calf tenderness. LYMPHATICS: No significant lymphadenopathy is noted PSYCHIATRIC: Normal psychiatric evaluation. Limitations: no limitations Course Vital Signs 10/04/20 10/04/20 10/04/20 13:03 14:25 15:20 Temperature 97.7 F Pulse Rate 90 85 92 Respiratory 18 20 20 Rate Blood Pressure 147/68 138/81 117/86 O2 Sat by Pulse 98 98 97 Oximetry Medical Decision Making - Medical Decision Making EKG shows sinus rhythm with occasional PAC at 85 bpm AL interval is 198 QRS is 90 QT interval 360 QTC is 437. No ST segment elevation or depression. Chest x-ray shows no acute abnormality. I started patient on heparin for the unstable angina. I spoke with Dr. Abraham and he agreed to admit the patient and the patient remaining orders and consult cardiology continued heparin has been Nitropaste before. - Lab Data Result diagrams: 10/04/20 14:51 10/04/20 14:51 Lab Results 10/04/20 10/04/20 10/04/20 Range/Units 14:51 14:51 14:51 WBC 8.5 (3.8-10.6) k/uL RBC 4.87 (4.30-5.90) m/uL Hgb 14.7 (13.0-17.5) gm/dL Hct 44.0 (39.0-53.0) % MCV 90.5 (80.0-100.0) fL MCH 30.2 (25.0-35.0) pg MCHC 33.4 (31.0-37.0) g/dL RDW 15.4 (11.5-15.5) % Plt Count 117 L (150-450) k/uL MPV 8.1 Neutrophils % 73 % Lymphocytes % 18 % Monocytes % 6 % Eosinophils % 2 % Basophils % 1 % Neutrophils # 6.2 (1.3-7.7) k/uL Lymphocytes # 1.5 (1.0-4.8) k/uL Monocytes # 0.5 (0-1.0) k/uL Eosinophils # 0.2 (0-0.7) k/uL Basophils # 0.0 (0-0.2) k/uL PT 10.5 (9.0-12.0) sec INR 1.0 (<1.2) APTT 23.5 (22.0-30.0) sec Sodium 142 (137-145) mmol/L Potassium 4.2 (3.5-5.1) mmol/L Chloride 107 (98-107) mmol/L Carbon Dioxide 23 (22-30) mmol/L Anion Gap 12 mmol/L BUN 19 (9-20) mg/dL Creatinine 0.71 (0.66-1.25) mg/dL Est GFR (CKD-EPI)AfAm >90 (>60 ml/min/1.73 sqM) Est GFR (CKD-EPI)NonAf 87 (>60 ml/min/1.73 sqM) Glucose 159 H (74-99) mg/dL Calcium 10.4 H (8.4-10.2) mg/dL Magnesium 1.4 L (1.6-2.3) mg/dL Total Bilirubin 1.1 (0.2-1.3) mg/dL AST 44 (17-59) U/L ALT 27 (4-49) U/L Alkaline Phosphatase 91 (38-126) U/L Troponin I (0.000-0.034) ng/mL Total Protein 7.2 (6.3-8.2) g/dL Albumin 4.5 (3.5-5.0) g/dL 10/04/20 Range/Units 14:51 WBC (3.8-10.6) k/uL RBC (4.30-5.90) m/uL Hgb (13.0-17.5) gm/dL Hct (39.0-53.0) % MCV (80.0-100.0) fL MCH (25.0-35.0) pg MCHC (31.0-37.0) g/dL RDW (11.5-15.5) % Plt Count (150-450) k/uL MPV Neutrophils % % Lymphocytes % % Monocytes % % Eosinophils % % Basophils % % Neutrophils # (1.3-7.7) k/uL Lymphocytes # (1.0-4.8) k/uL Monocytes # (0-1.0) k/uL Eosinophils # (0-0.7) k/uL Basophils # (0-0.2) k/uL PT (9.0-12.0) sec INR (<1.2) APTT (22.0-30.0) sec Sodium (137-145) mmol/L Potassium (3.5-5.1) mmol/L Chloride (98-107) mmol/L Carbon Dioxide (22-30) mmol/L Anion Gap mmol/L BUN (9-20) mg/dL Creatinine (0.66-1.25) mg/dL Est GFR (CKD-EPI)AfAm (>60 ml/min/1.73 sqM) Est GFR (CKD-EPI)NonAf (>60 ml/min/1.73 sqM) Glucose (74-99) mg/dL Calcium (8.4-10.2) mg/dL Magnesium (1.6-2.3) mg/dL Total Bilirubin (0.2-1.3) mg/dL AST (17-59) U/L ALT (4-49) U/L Alkaline Phosphatase (38-126) U/L Troponin I <0.012 (0.000-0.034) ng/mL Total Protein (6.3-8.2) g/dL Albumin (3.5-5.0) g/dL Critical Care Time Critical Care Time: Yes Total Critical Care Time: 35 Disposition Clinical Impression: Unstable angina pectoris Disposition: ADMITTED IP TO THIS HOSP Referrals: Niko Abraham MD [Primary Care Provider] - 1-2 days Time of Disposition: 16:01
[2020-10-04 14:57] LABS: Basophils % (A) 1 %; Eosinophils # (A) 0.2 k/uL (0-0.7); Eosinophils % (A) 2 %; HGB 14.7 gm/dL (13.0-17.5); Lymphocytes # (A) 1.5 k/uL (1.0-4.8); Lymphocytes % (A) 18 %; MCH 30.2 pg (25.0-35.0); MCHC 33.4 g/dL (31.0-37.0); MCV 90.5 fL (80.0-100.0); Mean Platelet Volume 8.1; Monocytes # (A) 0.5 k/uL (0-1.0); Monocytes % (A) 6 %; Neutrophils # (A) 6.2 k/uL (1.3-7.7); Neutrophils % (A) 73 %; Platelet Count 117 k/uL (150-450); RBC 4.87 m/uL (4.30-5.90); RDW 15.4 % (11.5-15.5); WBC 8.5 k/uL (3.8-10.6)
[2020-10-04 15:07] LABS: ALT 27 U/L (4-49); AST 44 U/L (17-59); African American GFR (CKD) >90 (>60 ml/min/1.73 sqM); Albumin 4.5 g/dL (3.5-5.0); Alkaline Phosphatase 91 U/L (38-126); Anion Gap 12 mmol/L; Blood Urea Nitrogen 19 mg/dL (9-20); Calcium 10.4 mg/dL (8.4-10.2); Carbon Dioxide 23 mmol/L (22-30); Chloride 107 mmol/L (98-107); Glucose 159 mg/dL (74-99); Magnesium 1.4 mg/dL (1.6-2.3); Non-African American GFR(CKD) 87 (>60 ml/min/1.73 sqM); Potassium 4.2 mmol/L (3.5-5.1); Sodium 142 mmol/L (137-145); Total Bilirubin 1.1 mg/dL (0.2-1.3); Total Protein 7.2 g/dL (6.3-8.2)
[2020-10-04 15:08] LABS: Partial Thromboplastin Time 23.5 sec (22.0-30.0); Prothrombin Time 10.5 sec (9.0-12.0)
--- NOTE | 2020-10-04 15:11 | XR ---
EXAMINATION TYPE: XR chest 2V DATE OF EXAM: 10/04/2020 COMPARISON: 12/06/2017 INDICATION: Chest pain TECHNIQUE: Frontal and lateral views of the chest are obtained. FINDINGS: The heart size is normal. The pulmonary vasculature is normal. The lungs are clear. IMPRESSION: 1. No acute pulmonary process.
[2020-10-04] MEDS ORDERED: MAGNESIUM SULFATE-D5W PMX 1 GM in DEXTROSE/WATER 1 100ML.BAG IVPB ONE (15:35)
[2020-10-04] MEDS ORDERED: HEPARIN SODIUM 1,000 UN/ML (10ML VL) IV ONE (15:51)
[2020-10-04] MEDS ORDERED: HEPARIN SOD,PORK IN 0.45% NACL 25,000 UNIT in 0.45% NACL 1 250ML.BAG IV SCH (16:00)
[2020-10-04] MEDS ORDERED: NITROGLYCERIN SL TABS 0.4 MG TAB SUBLINGUAL PRN ×2 (16:56→22:45)
[2020-10-04] MEDS: NITROGLYCERIN OINT 1 INCH/GM PACKET TOPICAL SCH (17:27)
[2020-10-04 23:03] LABS: Glucose,Whole Blood 302 mg/dL (75-99)
--- NOTE | 2020-10-05 00:27 | P.EN ---
A team note Activated at 11:59 pm. Arrived on the scene shortly after. Reviewed the chart discussed the case with the RN. The patient was admitted earlier tonight with complaints of chest pain. He was started on heparin infusion with cardiology consulted. The patient had reported ongoing chest pain to the RN who subsequently activated A-team. EKG obtained at the scene was reviewed showing NSR @ 94 bpm w/ [address]-segment elevations noted in inferior leads, similar to EKG from 10/05 @ 1600. The patient noted that he continues to have intermittent sharp substernal chest discomfort, pleuritic in nature, at maximal intensity 6 out of 10, currently at a 1 out of 10. Denied associated shortness of breath, nausea, diaphoresis, or dizziness. Denied recent immobilization or travel. Denied noticing unilateral lower extremity swelling or pain. At time of evaluation, the patient's vitals were BP 109/65, pulse 108, and SpO2 93% on 2 L of nasal cannula oxygen. Physical examination: General: non toxic, no distress, appears at stated age, obese Derm: no unusual rashes/lesions no unusual ecchymoses, warm, dry Head: atraumatic, normocephalic, symmetric Eyes: EOMI, no lid lag, anicteric sclera, pupils equal round reactive to light ENT: Nose and ears atraumatic, no thrush, no pharyngeal erythema Neck: No thyromegaly, no cervical lymphadenopathy, trachea midline, supple Mouth: no lip lesion, mucus membranes moist Cardiovascular: S1S2 reg, no murmur, positive posterior tibial pulse bilateral, no edema, capillary refill less than 2 seconds Lungs: CTA bilateral, no rhonchi, no rales , no accessory muscle use Abdominal: soft, nontender to palpation, no guarding, no appreciable organomegaly, normal bowel sounds Ext: no gross muscle atrophy, muscle strength 5 out of 5 in all 4 extremities grossly, no contractures, Neuro: CN II-XI grossly intact, light touch intact all 4 extremities, finger to nose within normal limits, Psych: Alert, oriented, appropriate affect Assessment/plan Chest pain, pleuritic -D-dimer ordered -RN sent EKG to [employer] for review -Continue with Heparin infusion for now -Nitroglycerin patch -C/w Aspirin Total time spent providing critical care to this patient: 35 minutes
[2020-10-05] MEDS: INSULIN ASPART (NovoLOG) 100 UNIT/ML VIAL SQ SCH ×9 (01:42→22:36)
[2020-10-05] MEDS: INSULIN DETEMIR (LEVEMIR) 100 UNIT/ML SYR SQ SCH ×2 (02:39→22:36)
[2020-10-05] MEDS: NITROGLYCERIN OINT 1 INCH/GM PACKET TOPICAL SCH ×2 (02:40→06:24)
[2020-10-05] MEDS ORDERED: HEPARIN SODIUM 1,000 UN/ML (10ML VL) IV PRN (02:45)
[2020-10-05] MEDS ORDERED: ATORVASTATIN 20 MG TAB PO SCH (07:00)
[2020-10-05 07:54] LABS: Glucose,Whole Blood 175 mg/dL (75-99)
[2020-10-05] MEDS: metFORMIN 500 MG TAB PO SCH (08:38)
[2020-10-05] MEDS: ISOSORBIDE MONONITRATE ER 30 MG TAB.ER.24H PO SCH (08:38)
[2020-10-05] MEDS: METOPROLOL TARTRATE 25 MG TAB PO SCH ×3 (08:39→22:14)
[2020-10-05] MEDS: ASPIRIN 81 MG PO SCH ×2 (08:39→09:18)
[2020-10-05] MEDS: allopurinoL 100 MG TAB PO SCH ×2 (08:39→09:18)
[2020-10-05] MEDS: ATORVASTATIN 40 MG TAB PO SCH (08:39)
[2020-10-05] MEDS: LINAGLIPTIN 5 MG TABLET PO SCH ×2 (08:39→09:19)
[2020-10-05] MEDS: NON FORMULARY DRUG (Canagliflozin [Invokana] 100 MG Tablet) PO SCH ×2 (08:39→09:18)
[2020-10-05] MEDS ORDERED: ASPIRIN 325 MG TAB PO SCH (09:00)
--- NOTE | 2020-10-05 10:12 | P.CRDCN ---
History of Present Illness History of present illness: HISTORY OF PRESENTING ILLNESS This is a pleasant 85-year-old male past medical history significant for coronary artery disease, hypertension, dyslipidemia and recent diagnosis of bladder cancer status post surgical resection. He follows in the office with Dr. Luna. We have been asked to see in consultation for chest pain. He states yesterday intermittently throughout the day he was having episodes of chest discomfort. The discomfort was in the midsternal region and would radiate up into his jaw bilaterally and at times it was associated with difficulty in taking a deep breath. The pain was not exacerbated by deep breathing, movement or activity. EKG on arrival revealed sinus mechanism with no acute ST or T wave abnormalities noted. The patient had another episode of chest discomfort while at the hospital which prompted a repeat EKG. Although the EKG electronic reading was saying acute HI there is no evidence of ST elevation when reading EKG tracings. The patient was seen and examined resting comfortably in bed in no acute distress. He has had no symptoms of chest discomfort this morning and states he slept well. In 2017 he underwent cardiac catheterization secondary to an abnormal stress test revealing left main no high-grade stenosis, LAD with an area of 30-40% intimal disease in the proximal and midportion, circumflex with a tortuous segment with 99% stenosis in the proximal portion and RCA with no evidence of high-grade stenosis. At that time PCI was attempted however was unsuccessful due to heavy calcifications. CT surgery evaluated the patient and due to single-vessel disease recommended maximum medical therapy. Chest x-ray on this admission is negative for an acute cardiopulmonary process. Laboratory data reviewed, WBC 8.5, hemoglobin 14.7, platelets 117, d-dimer 0.37, sodium 142, potassium 4.2, creatinine 0.71, magnesium 1.4 and cardiac enzymes negative 3. Most recent echocardiogram obtained in the office November 2019 reveals preserved LV systolic function with ejection fraction 55%, mildly dilated left atrium, calcified aortic valve, mild mitral regurgitation and mild tricuspid regurgitation. REVIEW OF SYSTEMS At the time of my exam: CONSTITUTIONAL: Denies fever or chills. CARDIOVASCULAR: Denies chest pain, shortness of breath, orthopnea, PND or palpitations. RESPIRATORY: Denies cough. GASTROINTESTINAL: Denies abdominal pain, diarrhea, constipation, nausea or vomiting. MUSCULOSKELETAL: Denies myalgias. NEUROLOGIC: Denies numbness, tingling, headacbe or weakness. ENDOCRINE: Denies fatigue, weight change, polydipsia or polyurina. GENITOURINARY: Denies burning, hematuria or urgency with micturation. HEMATOLOGIC: Denies history of anemia or bleeding. PHYSICAL EXAMINATION Blood pressure 122/73 heart rate 83 afebrile and maintaining oxygen saturation on nasal cannula. CONSTITUTIONAL: No apparent distress. HEENT: Head is normocephalic. Pupils are equal, round. Sclerae anicteric. Mucous membranes of the mouth are moist. No JVD. No carotid bruit. CHEST EXAMINATION: Lungs are clear to auscultation. No chest wall tenderness is noted on palpation or with deep breathing. HEART EXAMINATION: Regular rate and rhythm. S1, S2 heard. No murmurs, gallops or rub. ABDOMEN: Soft, nontender. Positive bowel sounds. EXTREMITIES: 2+ peripheral pulses, no lower extremity edema and no calf tenderness. NEUROLOGIC EXAMINATION: Patient is awake, alert and oriented x3. ASSESSMENT Chest pain Hypomagnesemia Coronary artery disease not amendable to PCI Hypertension Dyslipidemia Recent diagnosis of bladder cancer status post surgical resection PLAN An acute coronary event has been ruled out. Discontinue heparin infusion. Decrease aspirin to 81 mg daily. Add Imdur 30 mg daily to his regimen. Replace magnesium per protocol. Increase activity and ambulation and assess for exertional chest discomfort on nitrates. Obtain 2-D echocardiogram and Doppler study to assess cardiac structure and function. Further recommendations to follow based upon clinical course. Thank you kindly for this consultation. Nurse Practitioner note has been reviewed, I agree with a documented findings and plan of care. Patient was seen and examined. Past Medical History Past Medical History: Coronary Artery Disease (CAD), Cancer, Diabetes Mellitus, Hyperlipidemia, Hypertension Additional Past Medical History / Comment(s): BPH bladder cancer History of Any Multi-Drug Resistant Organisms: None Reported Past Surgical History: Appendectomy, Bladder Surgery, Joint Replacement, Tonsillectomy Additional Past Surgical History / Comment(s): left knee replaced, right rotator cuff SX, COLONOSCOPY, Past Anesthesia/Blood Transfusion Reactions: No Reported Reaction Past Psychological History: No Psychological Hx Reported Smoking Status: Never smoker Past Alcohol Use History: Occasional Additional Past Alcohol Use History / Comment(s): Patient was a smoker of one pack per day and QUIT SMOKING 35 YRS AGO. He drinks approximately 1 beer/3months. Past Drug Use History: None Reported - Past Family History Mother Family Medical History: No Reported History Additional Family Medical History / Comment(s): Mother had history of congenital heart disease, CHF. Father Family Medical History: No Reported History, CVA/TIA Additional Family Medical History / Comment(s): Father contracted malaria. History of CVA. Brother(s) Family Medical History: No Reported History Additional Family Medical History / Comment(s): Brother has history of headaches. Sister(s) Family Medical History: No Reported History Daughter(s) Family Medical History: No Reported History Additional Family Medical History / Comment(s): Patient has one daughter with no major medical problems. Son(s) Family Medical History: No Reported History Additional Family Medical History / Comment(s): Patient has one son with no major medical problems. Medications and Allergies Home Medications Medication Instructions Recorded Confirmed Type Insulin Glargine,Hum.rec.anlog 65 unit SQ HS 02/21/14 10/04/20 History [Lantus Solostar] Rosuvastatin Calcium [Crestor] 10 mg PO DAILY 02/21/14 10/04/20 History allopurinoL [Zyloprim] 100 mg PO DAILY 02/21/14 10/04/20 History sitaGLIPtin PHOS/metFORMIN HCL 1 tab PO DAILY 02/21/14 10/04/20 History [Janumet 50-1,000 mg Tablet] Aspirin EC [Ecotrin Low Dose] 81 mg PO DAILY 08/02/15 10/04/20 History Canagliflozin [Invokana] 100 mg PO DAILY 08/02/15 10/04/20 History Metoprolol Tartrate [Lopressor] 25 mg PO BID #60 tab 12/07/17 10/04/20 Rx Nitroglycerin Sl Tabs [Nitrostat] 0.4 mg SUBLINGUAL Q5M PRN #30 tab 12/07/17 10/04/20 Rx lisinopriL [Zestril] 2.5 mg PO DAILY tab 12/07/17 10/04/20 Rx Insulin Lispro [humaLOG Kwikpen] 10 unit SQ AC-TID 10/04/20 10/04/20 History Allergies Allergy/AdvReac Type Severity Reaction Status Date / Time No Known Allergies Allergy Verified 10/04/20 15:43 Physical Exam Vitals: Vital Signs Temp Pulse Pulse Resp BP BP Pulse Ox 10/05/20 07:31 20 10/05/20 00:51 98.5 F 86 20 103/63 95 10/04/20 20:13 99.2 F 101 H 18 115/69 96 10/04/20 20:00 98.7 F 109 H 18 129/70 95 10/04/20 19:39 102 H 18 136/70 97 10/04/20 18:58 98 16 122/70 100 10/04/20 18:20 96 20 148/78 92 L 10/04/20 17:25 96 16 133/68 97 10/04/20 16:11 94 16 131/63 97 10/04/20 15:20 92 20 117/86 97 10/04/20 14:25 85 20 138/81 98 10/04/20 13:03 97.7 F 90 18 147/68 98 Intake and Output 10/04/20 10/05/20 10/05/20 22:59 06:59 14:59 Intake Total 110.522 Balance 110.522 Intake: Intake, IV Titration 110.522 Amount Heparin Sod,Pork in 0.45% 110.522 NaCl 25,000 unit In 0.45 % NaCl 1 250ml.bag @ 9.8 UNITS/KG/HR 10.002 mls/hr IV .Q24H [facility] Rx#: [id number] Other: # Voids 1 2 Weight 102.058 kg Results 10/04/20 14:51 10/04/20 14:51 Cardiac Enzymes 10/04/20 10/04/20 10/04/20 Range/Units 14:51 14:51 18:35 AST 44 (17-59) U/L Troponin I <0.012 <0.012 (0.000-0.034) ng/mL 10/04/20 Range/Units 23:43 AST (17-59) U/L Troponin I <0.012 (0.000-0.034) ng/mL Coagulation 10/04/20 10/04/20 Range/Units 14:51 23:43 PT 10.5 (9.0-12.0) sec APTT 23.5 28.8 (22.0-30.0) sec CBC 10/04/20 Range/Units 14:51 WBC 8.5 (3.8-10.6) k/uL RBC 4.87 (4.30-5.90) m/uL Hgb 14.7 (13.0-17.5) gm/dL Hct 44.0 (39.0-53.0) % Plt Count 117 L (150-450) k/uL Comprehensive Metabolic Panel 10/04/20 Range/Units 14:51 Sodium 142 (137-145) mmol/L Potassium 4.2 (3.5-5.1) mmol/L Chloride 107 (98-107) mmol/L Carbon Dioxide 23 (22-30) mmol/L BUN 19 (9-20) mg/dL Creatinine 0.71 (0.66-1.25) mg/dL Glucose 159 H (74-99) mg/dL Calcium 10.4 H (8.4-10.2) mg/dL AST 44 (17-59) U/L ALT 27 (4-49) U/L Alkaline Phosphatase 91 (38-126) U/L Total Protein 7.2 (6.3-8.2) g/dL Albumin 4.5 (3.5-5.0) g/dL Current Medications Generic Name Dose Route Start Last Admin Trade Name Freq PRN Reason Stop Dose Admin Allopurinol 100 mg 10/05/20 07:00 Allopurinol 100 Mg Tab PO DAILY [facility] Aspirin 81 mg 10/05/20 07:00 Aspirin 81 Mg PO DAILY [facility] Atorvastatin Calcium 20 mg 10/05/20 07:00 Atorvastatin 20 Mg Tab PO DAILY [facility] Heparin Sodium (Porcine) 0 unit 10/05/20 02:45 10/05/20 03:10 Heparin Sodium 1,000 Un/Ml (10ml Vl) IV 4,000 unit PER PROTOCOL PRN Administration Low PTT Protocol Heparin Sodium/Sodium Chloride 250 mls @ 10.002 mls/hr 10/04/20 16:00 10/05/20 03:13 25,000 unit/ Sodium Chloride IV 12.8 units/kg/hr .Q24H DOTT[facility] 13.063 mls/hr Titration Protocol 9.8 UNITS/KG/HR Insulin Aspart 10 unit 10/04/20 23:00 10/05/20 01:42 Insulin Aspart (Novolog) 100 Unit/Ml Vial SQ Not Given AC-TID [facility] Insulin Aspart 0 unit 10/05/20 00:31 10/05/20 02:40 Insulin Aspart (Novolog) 100 Unit/Ml Vial SQ Not Given ACHS [facility] Protocol Insulin Detemir 65 unit 10/04/20 23:00 10/05/20 02:39 Insulin Detemir (Levemir) 100 Unit/Ml Syr SQ 65 unit HS DOTTIE Administration Linagliptin 5 mg 10/05/20 07:00 Linagliptin 5 Mg Tablet PO DAILY [facility] Lisinopril 2.5 mg 10/05/20 07:00 Lisinopril 2.5 Mg Tab PO DAILY [facility] Metformin HCl 1,000 mg 10/05/20 09:00 Metformin 500 Mg Tab PO DAILY [facility] Metoprolol Tartrate 25 mg 10/05/20 07:00 Metoprolol Tartrate 25 Mg Tab PO BID [facility] Nitroglycerin 0.4 mg 10/04/20 16:56 10/05/20 00:07 Nitroglycerin Sl Tabs 0.4 Mg Tab SUBLINGUAL 0.4 mg Q5M PRN Administration Chest Pain Nitroglycerin 1 inch 10/04/20 18:00 10/05/20 06:24 Nitroglycerin Oint 1 Inch/Gm Packet TOPICAL Not Given Q6HR [facility] Nitroglycerin 0.4 mg 10/04/20 22:45 Nitroglycerin Sl Tabs 0.4 Mg Tab SUBLINGUAL Q5M PRN Chest Pain Non-Formulary Medication 100 mg 10/05/20 07:00 Canagliflozin [Invokana] PO DAILY [facility] Intake and Output 10/04/20 10/05/20 10/05/20 22:59 06:59 14:59 Intake Total 110.522 Balance 110.522 Intake: Intake, IV Titration 110.522 Amount Heparin Sod,Pork in 0.45% 110.522 NaCl 25,000 unit In 0.45 % NaCl 1 250ml.bag @ 9.8 UNITS/KG/HR 10.002 mls/hr IV .Q24H [facility] Rx#: [id number] Other: # Voids 1 2 Weight 102.058 kg 10/04/20 14:51 10/04/20 14:51
[2020-10-05 10:36] LABS: Chol/HDL Ratio 4.28
[2020-10-05 11:43] LABS: Glucose,Whole Blood 135 mg/dL (75-99)
--- NOTE | 2020-10-05 12:08 | P.HPIM ---
History of Present Illness H&P Date: 10/05/20 HISTORY OF PRESENT ILLNESS This is an 85-year-old male patient of Dr. Abraham with past medical history of coronary artery disease, hypertension, hyperlipidemia, diabetes mellitus type 2, generalized anxiety disorder, bladder cancer under the care of Dr. Navarrete, chronic gout. Patient states that he was seen by Dr. Navarrete yesterday in his offic.e Patient is undergoing BCG injections and he is to return in 1 month. While he was at the office with Dr. Navarrete, patient told him that he had been having midsternal chest pain that was coming and going with radiation to his nec k and also into his jaw. Dr. Navarrete instructed him to go to the hospital for further evaluation. Patient states that he has noticed chest pain while he is pulling weeds and with other activities but also has chest pain with deep breathing. In 2018, patient underwent cardiac catheterization that revealed left main no high-grade stenosis, LAD with an area of 30-40% intimal disease in the proximal and midportion, circumflex with a tortuous segment with 99% stenosis in the proximal portion and RCA with no evidence of high-grade stenosis. At that time PCI was attempted however was unsuccessful due to heavy calcifications. CT surgery evaluated the patient and due to single-vessel disease recommended maximum medical therapy. He last saw Dr. Luna a couple months ago.. Patient presented to [facility] emergency center. EKG was a sinus rhythm with no acute ST changes. Chest x-ray showed no acute cardiopulmonary process. WBC 8.5, hemoglobin 14.7, platelets 117. Electrolytes and renal function were normal. Blood sugar initially 302. Magnesium 1.4. Calcium 10.4. Liver function tests were normal. Troponin negative on 3 draws. Albumin 4.5. Triglycerides 175, cholesterol 171, LDL 96, HDL 40. Patient was placed on the observation unit, started on heparin drip and cardiology consult requested. REVIEW OF SYSTEMS Constitutional: No fever, no chills, no night sweats. No weight change. No weakness, fatigue or lethargy. No daytime sleepiness. EENT: No headache. No blurred vision or double vision, no loss of vision. No loss of Hearing, no ringing in the ears, no dizziness. No nasal drainage or congestion. No epistaxis. No sore throat. Lungs: No shortness of breath, cough, no sputum production. No wheezing. Cardiovascular: Reports chest pain, no lower extremity edema. No palpitations. No paroxysmal nocturnal dyspnea. No orthopnea. No lightheadedness or dizziness. No syncopal episodes. Reports chest pain with deep inspiration Abdominal: No abdominal pain. No nausea, vomiting. No diarrhea. No constipation. No bloody or tarry stools.. No loss of appetite. Genitourinary: No dysuria, increased frequency, urgency. No urinary retention. Musculoskeletal: No myalgias. No muscle weakness, no gait dysfunction, no frequent falls. No back pain. No neck pain. Integumentary: No wounds, no lesions. No rash or pruritus. No unusual bruising. No change in hair or nails. Neurologic: No aphasia. No facial droop. No change in mentation. No head injury. No headache. No paralysis. No paresthesia. Psychiatric: No depression. No anxiety. No mood swings. Endocrine: No abnormal blood sugars. No weight change. MEDICAL HISTORY Coronary artery disease Hypertension Hyperlipidemia Diabetes mellitus type 2 Generalized anxiety disorder Bladder cancer Chronic gout SURGICAL HISTORY Left total knee arthroplasty Right shoulder rotator cuff repair Bladder surgery Appendectomy Tonsillectomy Colonoscopy SOCIAL HISTORY Patient has remote history of tobacco use, no alcohol use, marijuana or illicit drug use. FAMILY HISTORY Father from a stroke with history of malaria at 27 years of age. Mother at age 83 from heart failure. Patient has one half brother that at age 56 from Covid and MD. Patient has one daughter with no major medical problems and 2 sons with no major medical problems. PHYSICAL EXAMINATION Gen: This is an 85-year-old male patient. He is resting in bed appears to be comfortable and in no acute distress. HEENT: Head is atraumatic, normocephalic. Pupils equal, round. Sclerae is anicteric. NECK: Supple. No JVD. No lymphadenopathy. No thyromegaly. LUNGS: Clear to auscultation. No wheezes or rhonchi. No intercostal retractions. HEART: First heart sound is depressed, second heart sound is normal, 2/6 systolic ejection murmur at the left sternal border. No S3, no S4. ABDOMEN: Soft. Bowel sounds are present. No masses. No tenderness. EXTREMITIES: No pedal edema. No calf tenderness. NEUROLOGICAL: Patient is awake, alert and oriented x3. Cranial nerves 2 through 12 are grossly intact. ASSESSMENT AND PLAN 1. Chest pain with negative troponins. Consult with cardiology, echocardiogram, heparin drip has been discontinued by cardiology. Continue Imdur 30 mg daily, Lopressor 25 mg twice daily. 2. Hypertension. Continue lisinopril 2.5 mg daily, Lopressor 25 mg twice daily. 3. Hyperlipidemia. Continue Lipitor 40 mg daily. 4. Diabetes mellitus type 2. Continue Levemir 65 units at bedtime, NovoLog scale 10 units with meals, interval,, patient may bring his dose from home 100 mg daily, Tradjenta 5 mg daily, metformin 1000 mg daily, NovoLog scale before meals and at bedtime. 5. Generalized anxiety disorder, stable. 6. History of bladder cancer under the care Dr Navarrete. 7. Chronic gout. Continue allopurinol 100 mg daily 8. GI prophylaxis. Protonix. 9. DVT prophylaxis. Early ambulation, YUNIEL hose and SCDs Patient placed as an observation status. DISCHARGE PLAN Home. Impression and plan of care have been directed as dictated by the signing physician. Anamaria Black nurse practitioner acting as scribe for signing physician. Past Medical History Past Medical History: Coronary Artery Disease (CAD), Cancer, Diabetes Mellitus, Hyperlipidemia, Hypertension Additional Past Medical History / Comment(s): BPH bladder cancer History of Any Multi-Drug Resistant Organisms: None Reported Past Surgical History: Appendectomy, Bladder Surgery, Joint Replacement, Tonsillectomy Additional Past Surgical History / Comment(s): left knee replaced, right rotator cuff SX, COLONOSCOPY, Past Anesthesia/Blood Transfusion Reactions: No Reported Reaction Past Psychological History: No Psychological Hx Reported Smoking Status: Never smoker Past Alcohol Use History: Occasional Additional Past Alcohol Use History / Comment(s): Patient was a smoker of one pack per day and QUIT SMOKING 35 YRS AGO. He drinks approximately 1 beer/3months. Past Drug Use History: None Reported - Past Family History Mother Family Medical History: No Reported History Additional Family Medical History / Comment(s): Mother had history of congenital heart disease, CHF. Father Family Medical History: No Reported History, CVA/TIA Additional Family Medical History / Comment(s): Father contracted malaria. History of CVA. Brother(s) Family Medical History: No Reported History Additional Family Medical History / Comment(s): Brother has history of headaches. Sister(s) Family Medical History: No Reported History Daughter(s) Family Medical History: No Reported History Additional Family Medical History / Comment(s): Patient has one daughter with no major medical problems. Son(s) Family Medical History: No Reported History Additional Family Medical History / Comment(s): Patient has one son with no major medical problems. Medications and Allergies Home Medications Medication Instructions Recorded Confirmed Type Insulin Glargine,Hum.rec.anlog 65 unit SQ HS 02/21/14 10/04/20 History [Lantus Solostar] Rosuvastatin Calcium [Crestor] 10 mg PO DAILY 02/21/14 10/04/20 History allopurinoL [Zyloprim] 100 mg PO DAILY 02/21/14 10/04/20 History sitaGLIPtin PHOS/metFORMIN HCL 1 tab PO DAILY 02/21/14 10/04/20 History [Janumet 50-1,000 mg Tablet] Aspirin EC [Ecotrin Low Dose] 81 mg PO DAILY 08/02/15 10/04/20 History Canagliflozin [Invokana] 100 mg PO DAILY 08/02/15 10/04/20 History Metoprolol Tartrate [Lopressor] 25 mg PO BID #60 tab 12/07/17 10/04/20 Rx Nitroglycerin Sl Tabs [Nitrostat] 0.4 mg SUBLINGUAL Q5M PRN #30 tab 12/07/17 10/04/20 Rx lisinopriL [Zestril] 2.5 mg PO DAILY tab 12/07/17 10/04/20 Rx Insulin Lispro [humaLOG Kwikpen] 10 unit SQ AC-TID 10/04/20 10/04/20 History Allergies Allergy/AdvReac Type Severity Reaction Status Date / Time No Known Allergies Allergy Verified 10/04/20 15:43 Physical Exam Vitals: Vital Signs Temp Pulse Pulse Resp BP BP Pulse Ox 10/05/20 00:51 98.5 F 86 20 103/63 95 10/04/20 20:13 99.2 F 101 H 18 115/69 96 10/04/20 20:00 98.7 F 109 H 18 129/70 95 10/04/20 19:39 102 H 18 136/70 97 10/04/20 18:58 98 16 122/70 100 10/04/20 18:20 96 20 148/78 92 L 10/04/20 17:25 96 16 133/68 97 10/04/20 16:11 94 16 131/63 97 10/04/20 15:20 92 20 117/86 97 10/04/20 14:25 85 20 138/81 98 10/04/20 13:03 97.7 F 90 18 147/68 98 Intake and Output 10/04/20 10/05/20 10/05/20 22:59 06:59 14:59 Intake Total 110.522 Balance 110.522 Intake: Intake, IV Titration 110.522 Amount Heparin Sod,Pork in 0.45% 110.522 NaCl 25,000 unit In 0.45 % NaCl 1 250ml.bag @ 9.8 UNITS/KG/HR 10.002 mls/hr IV .Q24H DOTTIE Rx#: [id number] Other: # Voids 1 2 Weight 102.058 kg Results CBC & Chem 7: 10/04/20 14:51 10/04/20 14:51 Labs: Abnormal Lab Results - Last 24 Hours (Table) 10/04/20 10/04/20 10/04/20 Range/Units 14:51 14:51 23:00 Plt Count 117 L (150-450) k/uL Glucose 159 H (74-99) mg/dL POC Glucose (mg/dL) 302 H (75-99) mg/dL Calcium 10.4 H (8.4-10.2) mg/dL Magnesium 1.4 L (1.6-2.3) mg/dL
--- NOTE | 2020-10-05 13:45 | ECHOF ---
Referral Reason:cp MEASUREMENTS -------- HEIGHT: 177.8 cm WEIGHT: 102.1 kg BP: 103/63 RVIDd: 3.1 cm (< 3.3) IVSd: 1.6 cm (0.6 - 1.1) LVIDd: 4.9 cm (3.9 - 5.3) LVPWd: 1.6 cm (0.6 - 1.1) IVSs: 2.2 cm LVIDs: 2.9 cm LVPWs: 2.1 cm LAESV Index (A-L): 24.41 ml/m Ao Diam: 3.6 cm (2.0 - 3.7) AV Cusp: 2.0 cm (1.5 - 2.6) MV EXCURSION: 14.991 mm (> 18.000) MV EF SLOPE: 76 mm/s (70 - 150) EPSS: 1.1 cm MV E Stevenson: 0.75 m/s MV DecT: 244 ms MV A Stevenson: 0.62 m/s MV E/A Ratio: 1.20 RAP: 5.00 mmHg RVSP: 22.35 mmHg FINDINGS -------- Sinus rhythm. This was a technically difficult study with suboptimal views. The left ventricular size is normal. There is moderate concentric left ventricular hypertrophy. O verall left ventricular systolic function is low-normal with, an EF between 50 - 55 %. The right ventricle is normal in size. Normal LA size by volume 22+/-6 ml/m2. The right atrial size is normal. 5.0mg of Lumason was utilized for enhancement of images Interatrial and interventricular septum intact. There is mild aortic valve sclerosis. There is no evidence of aortic regurgitation. There is no e vidence of aortic stenosis. Mild mitral annular calcification present. Mild mitral regurgitation is present. The tricuspid valve appears structurally normal. Mild tricuspid regurgitation present. Right vent ricular systolic pressure is normal at < 35 mmHg. The right ventricular systolic pressure, as measu red by Doppler, is 22.35mmHg. There is no pulmonic regurgitation present. The aortic root size is normal. IVC Not well visulized. There is no pericardial effusion. CONCLUSIONS -------- 1. This was a technically difficult study with suboptimal views. 2. There is moderate concentric left ventricular hypertrophy. 3. Overall left ventricular systolic function is low-normal with, an EF between 50 - 55 %. 4. Normal LA size by volume 22+/-6 ml/m2. 5. There is mild aortic valve sclerosis. 6. Mild mitral regurgitation is present. 7. Mild tricuspid regurgitation present. [employer] SUPERVISOR: Anita Lizarraga RDCS
[2020-10-05 17:28] LABS: Glucose,Whole Blood 102 mg/dL (75-99)
[2020-10-05 20:41] LABS: Glucose,Whole Blood 173 mg/dL (75-99)
[2020-10-06] MEDS ORDERED: PANTOPRAZOLE 40 MG TABLET PO SCH (07:30)
[2020-10-06 07:35] LABS: Glucose,Whole Blood 91 mg/dL (75-99)
[2020-10-06] MEDS: INSULIN ASPART (NovoLOG) 100 UNIT/ML VIAL SQ SCH ×2 (08:27→08:31)
[2020-10-06] MEDS: NON FORMULARY DRUG (Canagliflozin [Invokana] 100 MG Tablet) PO SCH (08:28)
--- NOTE | 2020-10-06 08:28 | P.DS ---
Providers Date of admission: 10/04/20 16:56 Expected date of discharge: 10/06/20 Attending physician: Niko Abraham Consults: 10/04/20 16:56 Consult Physician Urgent Consulting Provider: [facility] Consult Reason/Comments: Unstable angina Do you want consulting provider notified?: Yes Primary care physician: Niko [facility] Course: HISTORY OF PRESENT ILLNESS This is an 85-year-old male patient of Dr. Abraham with past medical history of coronary artery disease, hypertension, hyperlipidemia, diabetes mellitus type 2, generalized anxiety disorder, bladder cancer under the care of Dr. Navarrete, chronic gout. Patient states that he was seen by Dr. Navarrete yesterday in his offic.e Patient is undergoing BCG injections and he is to return in 1 month. While he was at the office with Dr. Navarrete, patient told him that he had been having midsternal chest pain that was coming and going with radiation to his neck and also into his jaw. Dr. Navarrete instructed him to go to the hospital for further evaluation. Patient states that he has noticed chest pain while he is pulling weeds and with other activities but also has chest pain with deep breathing. In 2018, patient underwent cardiac catheterization that revealed left main no high-grade stenosis, LAD with an area of 30-40% intimal disease in the proximal and midportion, circumflex with a tortuous segment with 99% stenosis in the proximal portion and RCA with no evidence of high-grade stenosis. At that time PCI was attempted however was unsuccessful due to heavy calcifications. CT surgery evaluated the patient and due to single-vessel disease recommended maximum medical therapy. He last saw Dr. Luna a couple months ago.. Patient presented to [facility] emergency center. EKG was a sinus rhythm with no acute ST changes. Chest x-ray showed no acute cardiopulmonary process. WBC 8.5, hemoglobin 14.7, platelets 117. Electrolytes and renal function were normal. Blood sugar initially 302. Magnesium 1.4. Calcium 10.4. Liver function tests were normal. Troponin negative on 3 draws. Albumin 4.5. Triglycerides 175, cholesterol 171, LDL 96, HDL 40. Patient was placed on the observation unit, started on heparin drip and cardiology consult requested. 10/06: Patient was seen by cardiology and started on Imdur or 30 mg daily. Patient states he walked the halls 3 times and did not experience any chest pain, shortness of breath, lightheadedness, dizziness. Patient has been afebrile, heart rate 79, blood pressure 107/55, pulse ox 93% on room air. Capillary blood glucose running between 91-173. Echocardiogram [place] EF [place] 5055% with moderate concentric left hypertrophy, mild aortic valve sclerosis, mild mitral regurgitation, mild tricuspid regu rgitation. Patient will be discharged home today in stable condition. ASSESSMENT AND PLAN 1. Chest pain with negative troponins suggestive of unstable angina. 2. Hypertension. 3. Hyperlipidemia. 4. Diabetes mellitus type 2. 5. Generalized anxiety disorder, stable. 6. History of bladder cancer under the care Dr Navarrete. 7. Chronic gout. DISCHARGE PLAN Home. Impression and plan of care have been directed as dictated by the signing physician. Anamaria Black nurse practitioner acting as scribe for signing physician. Patient Condition at Discharge: Good Plan - Discharge Summary Discharge Rx Participant: No New Discharge Prescriptions: New Isosorbide Mononitrate ER [Imdur] 30 mg PO DAILY #30 tab.er.24h Continue sitaGLIPtin PHOS/metFORMIN HCL [Janumet 50-1,000 mg Tablet] 1 tab PO DAILY Rosuvastatin Calcium [Crestor] 10 mg PO DAILY allopurinoL [Zyloprim] 100 mg PO DAILY Insulin Glargine,Hum.rec.anlog [Lantus Solostar] 65 unit SQ HS Canagliflozin [Invokana] 100 mg PO DAILY Aspirin EC [Ecotrin Low Dose] 81 mg PO DAILY lisinopriL [Zestril] 2.5 mg PO DAILY tab Metoprolol Tartrate [Lopressor] 25 mg PO BID #60 tab Nitroglycerin Sl Tabs [Nitrostat] 0.4 mg SUBLINGUAL Q5M PRN #30 tab PRN Reason: Chest Pain Insulin Lispro [humaLOG Kwikpen] 10 unit SQ AC-TID Discharge Medication List Insulin Glargine,Hum.rec.anlog [Lantus Solostar] 65 unit SQ HS 02/21/14 [History] Rosuvastatin Calcium [Crestor] 10 mg PO DAILY 02/21/14 [History] allopurinoL [Zyloprim] 100 mg PO DAILY 02/21/14 [History] sitaGLIPtin PHOS/metFORMIN HCL [Janumet 50-1,000 mg Tablet] 1 tab PO DAILY 02/21/14 [History] Aspirin EC [Ecotrin Low Dose] 81 mg PO DAILY 08/02/15 [History] Canagliflozin [Invokana] 100 mg PO DAILY 08/02/15 [History] Metoprolol Tartrate [Lopressor] 25 mg PO BID #60 tab 12/07/17 [Rx] Nitroglycerin Sl Tabs [Nitrostat] 0.4 mg SUBLINGUAL Q5M PRN #30 tab 12/07/17 [Rx] lisinopriL [Zestril] 2.5 mg PO DAILY tab 12/07/17 [Rx] Insulin Lispro [humaLOG Kwikpen] 10 unit SQ AC-TID 10/04/20 [History] Isosorbide Mononitrate ER [Imdur] 30 mg PO DAILY #30 tab.er.24h 10/05/20 [Rx] Follow up Appointment(s)/Referral(s): Betsey Luna MD [STAFF PHYSICIAN] - 2 Weeks Niko Abraham MD [Primary Care Provider] - 1 Week Discharge Disposition: HOME SELF-CARE
[2020-10-06 08:29] VITALS: BP 115/68; PULSE 61; RESP 16; TEMP 98.2
[2020-10-06] MEDS: METOPROLOL TARTRATE 25 MG TAB PO SCH (08:32)
[2020-10-06] MEDS: metFORMIN 500 MG TAB PO SCH (08:32)
[2020-10-06] MEDS: allopurinoL 100 MG TAB PO SCH (08:32)
[2020-10-06] MEDS: ATORVASTATIN 40 MG TAB PO SCH (08:32)
[2020-10-06] MEDS: ISOSORBIDE MONONITRATE ER 30 MG TAB.ER.24H PO SCH (08:32)
[2020-10-06] MEDS: ASPIRIN 81 MG PO SCH (08:32)
[2020-10-06] MEDS: LINAGLIPTIN 5 MG TABLET PO SCH (08:33)
--- NOTE | 2020-10-06 11:00 | PN ---
PROGRESS NOTE Mr. Mesa is an 85-year-old male with known history of coronary artery disease who presented with symptoms of neck discomfort and chest discomfort. He is feeling well this morning. His breathing has been stable. He has been ambulating without difficulty. He denies any dizziness or palpitation. He denies any nausea and vomiting. No cough or fever. He had an echocardiogram performed yesterday that showed a preserved left ventricular size and with an ejection fraction of 50% to 55% with mild mitral and tricuspid regurgitation. He continues to be at this time on aspirin once a day, Lipitor 40 mg daily, Invokana, insulin, isosorbide mononitrate 30 mg daily, Tradjenta, Zestril 2.5 mg daily, metformin 1 g daily, and metoprolol tartrate 25 mg twice a day. PHYSICAL EXAMINATION: Blood pressure 107/50 with a heart rate in the 70s. Lungs: Clear. Heart: Regular rate and rhythm S1, S2. No S3. No rub. Abdomen: Soft and nontender. Extremities: No edema. IMPRESSION: 1. Chest discomfort with no evidence for acute coronary syndrome. Stable. 2. History of coronary artery disease. 3. History of hyperlipidemia. 4. History of diabetes mellitus. RECOMMENDATIONS: Patient should be able to be discharged home from the cardiac standpoint and followed as an outpatient and depending on his progress, further recommendations will be made. MMODL / IJN: [id number] /
== END 2020-10-06 09:29 | disposition home or self-care (01) ==
LOC: EC 12:57 → 6NMEDSUR 16:56
PROVIDERS: ADMIT Internal Medicine; ATTEND Internal Medicine
DX: R07.89 Other chest pain (principal); E83.42 Hypomagnesemia; I25.10 Atherosclerotic heart disease of native coronary artery without angina pectoris; I08.3 Combined rheumatic disorders of mitral, aortic and tricuspid valves; E11.9 Type 2 diabetes mellitus without complications; E78.5 Hyperlipidemia, unspecified; E78.00 Pure hypercholesterolemia, unspecified; N40.0 Benign prostatic hyperplasia without lower urinary tract symptoms; F41.1 Generalized anxiety disorder; M1A.9XX0 Chronic gout, unspecified, without tophus (tophi); I10 Essential (primary) hypertension; Z79.82 Long term (current) use of aspirin; Z79.4 Long term (current) use of insulin; Z79.899 Other long term (current) drug therapy; Z85.51 Personal history of malignant neoplasm of bladder; Z90.49 Acquired absence of other specified parts of digestive tract; Z98.890 Other specified postprocedural states; Z87.891 Personal history of nicotine dependence; Z96.652 Presence of left artificial knee joint; Z82.49 Family history of ischemic heart disease and other diseases of the circulatory system; Z82.3 Family history of stroke; Z83.1 Family history of other infectious and parasitic diseases
CPT/HCPCS: 96376 ×2; 96366 ×3; 96368; 96365; 99291; 36415; 93005; 85379; 80061; 80053; 83735; 84484; 85025; 85610; 85730 ×2; 71046; G0378 ×3; C8929; J1644 ×3; J3475; Q9950; 93306

== ENCOUNTER 2020-10-09 10:20 | Emergency (ER) | payer MEDICARE ==
[2020-10-09 10:25] VITALS: TEMP 97.9
--- NOTE | 2020-10-09 10:59 | ED ---
General Adult HPI - General Chief complaint: Chest Pain Stated complaint: chest pain/leg pain Time Seen by Provider: 10/09/20 10:27 Source: patient, RN notes reviewed, old records reviewed Mode of arrival: ambulatory Limitations: no limitations - History of Present Illness Initial comments: 85-year-old male presents for evaluation of left-sided chest pain. Pain is worse with deep inspiration. Has been present throughout the morning today. He was recently seen at this institution for chest pain was admitted, evaluated. He states that the pain is having today is different from the pain that brought him in one week ago. He does report some mild dyspnea. No cough. No fever. No abdominal pain. - Related Data Home Medications Medication Instructions Recorded Confirmed Insulin Glargine,Hum.rec.anlog 65 unit SQ HS 02/21/14 10/09/20 [Lantus Solostar] Rosuvastatin Calcium [Crestor] 10 mg PO DAILY 02/21/14 10/09/20 allopurinoL [Zyloprim] 100 mg PO DAILY 02/21/14 10/09/20 sitaGLIPtin PHOS/metFORMIN HCL 1 tab PO DAILY 02/21/14 10/09/20 [Janumet 50-1,000 mg Tablet] Aspirin EC [Ecotrin Low Dose] 81 mg PO DAILY 08/02/15 10/09/20 Insulin Lispro [humaLOG Kwikpen] 10 unit SQ AC-TID 10/04/20 10/09/20 Previous Rx's Medication Instructions Recorded Nitroglycerin Sl Tabs [Nitrostat] 0.4 mg SUBLINGUAL Q5M PRN #30 tab 12/07/17 lisinopriL [Zestril] 2.5 mg PO DAILY tab 12/07/17 Isosorbide Mononitrate ER [Imdur] 30 mg PO DAILY #30 tab.er.24h 10/05/20 Allergies Allergy/AdvReac Type Severity Reaction Status Date / Time No Known Allergies Allergy Verified 10/09/20 11:35 Review of Systems ROS Statement: Those systems with pertinent positive or pertinent negative responses have been documented in the HPI. ROS Other: All systems not noted in ROS Statement are negative. Past Medical History Past Medical History: Coronary Artery Disease (CAD), Cancer, Diabetes Mellitus, Hyperlipidemia, Hypertension Additional Past Medical History / Comment(s): BPH bladder cancer History of Any Multi-Drug Resistant Organisms: None Reported Past Surgical History: Appendectomy, Bladder Surgery, Joint Replacement, Tonsillectomy Additional Past Surgical History / Comment(s): left knee replaced, right rotator cuff SX, COLONOSCOPY, Past Anesthesia/Blood Transfusion Reactions: No Reported Reaction Past Psychological History: No Psychological Hx Reported Smoking Status: Never smoker Past Alcohol Use History: Occasional Past Drug Use History: None Reported - Past Family History Mother Family Medical History: No Reported History Additional Family Medical History / Comment(s): Mother had history of congenital heart disease, CHF. Father Family Medical History: No Reported History, CVA/TIA Additional Family Medical History / Comment(s): Father contracted malaria. History of CVA. Brother(s) Family Medical History: No Reported History Additional Family Medical History / Comment(s): Brother has history of headaches. Sister(s) Family Medical History: No Reported History Daughter(s) Family Medical History: No Reported History Additional Family Medical History / Comment(s): Patient has one daughter with no major medical problems. Son(s) Family Medical History: No Reported History Additional Family Medical History / Comment(s): Patient has one son with no ma [place] medical problems. General Exam Limitations: no limitations General appearance: alert, in no apparent distress Head exam: Present: atraumatic, normocephalic Eye exam: Present: normal appearance, PERRL ENT exam: Present: normal exam Neck exam: Present: normal inspection. Absent: tenderness Respiratory exam: Present: normal lung sounds bilaterally. Absent: respiratory distress, wheezes, rales Cardiovascular Exam: Present: regular rate, normal rhythm GI/Abdominal exam: Present: soft. Absent: distended, tenderness, guarding Extremities exam: Present: normal inspection, normal capillary refill. Absent: pedal edema, calf tenderness Neurological exam: Present: alert, oriented X3, CN II-XII intact. Absent: motor sensory deficit Psychiatric exam: Present: normal affect, normal mood Skin exam: Present: warm, dry, intact. Absent: cyanosis, diaphoretic Course Vital Signs 10/09/20 10/09/20 10/09/20 10:22 11:00 13:07 Temperature 97.9 F Pulse Rate 79 84 Respiratory 18 18 18 Rate Blood Pressure 118/65 127/84 O2 Sat by Pulse 96 96 Oximetry EKG Findings - EKG Comments: EKG Findings:: EKG: Sinus rhythm rate of 75, CA interval 174, QRS duration 92, QTC 433, no ST segment elevation Medical Decision Making - Medical Decision Making 85-year-old male with presented for evaluation of left-sided chest pain. Pain was atypical. He was recently admitted to this institution with chest pain. EKG was sinus rhythm without ST segment elevation. Chest x-ray is negative. CBC unremarkable. Initial troponin negative, d-dimer was 1.19. Therefore CT angiography was performed. CT was negative for pulmonary embolism. I did initially discuss case with Dr. Amparo smith who is the patient's primary care physician who recommended that I speak with cardiology given this patient had a heart catheterization in 2018 that was not able to successfully stent at that time. I discussed case both with Dr. Hui and with Dr. Luna. Given the atypical features of this chest pain nonischemic EKG and negative initial troponin Dr. Hui does recommend a repeat troponin which is performed in the emergency department and is negative. Patient able to be discharged home at this time. Return parameters are discussed. Patient is agreeable and eager for discharge. - Lab Data Result diagrams: 10/09/20 10:52 10/09/20 10:52 Lab Results 10/09/20 10/09/20 10/09/20 Range/Units 10:52 10:52 10:52 WBC 7.9 (3.8-10.6) k/uL RBC 4.35 (4.30-5.90) m/uL Hgb 13.4 (13.0-17.5) gm/dL Hct 39.3 (39.0-53.0) % MCV 90.4 (80.0-100.0) fL MCH 30.7 (25.0-35.0) pg MCHC 34.0 (31.0-37.0) g/dL RDW 15.1 (11.5-15.5) % Plt Count 154 (150-450) k/uL MPV 8.1 Neutrophils % 69 % Lymphocytes % 19 % Monocytes % 7 % Eosinophils % 2 % Basophils % 1 % Neutrophils # 5.4 (1.3-7.7) k/uL Lymphocytes # 1.5 (1.0-4.8) k/uL Monocytes # 0.5 (0-1.0) k/uL Eosinophils # 0.2 (0-0.7) k/uL Basophils # 0.0 (0-0.2) k/uL PT 10.5 (9.0-12.0) sec INR 1.0 (<1.2) APTT 22.4 (22.0-30.0) sec D-Dimer 1.19 H (<0.60) mg/L FEU Sodium 139 (137-145) mmol/L Potassium 4.5 (3.5-5.1) mmol/L Chloride 109 H (98-107) mmol/L Carbon Dioxide 19 L (22-30) mmol/L Anion Gap 11 mmol/L BUN 31 H (9-20) mg/dL Creatinine 0.86 (0.66-1.25) mg/dL Est GFR (CKD-EPI)AfAm >90 (>60 ml/min/1.73 sqM) Est GFR (CKD-EPI)NonAf 80 (>60 ml/min/1.73 sqM) Glucose 169 H (74-99) mg/dL Calcium 9.5 (8.4-10.2) mg/dL Magnesium 1.7 (1.6-2.3) mg/dL Total Bilirubin 1.1 (0.2-1.3) mg/dL AST 32 (17-59) U/L ALT 18 (4-49) U/L Alkaline Phosphatase 92 (38-126) U/L Troponin I (0.000-0.034) ng/mL Total Protein 6.6 (6.3-8.2) g/dL Albumin 3.9 (3.5-5.0) g/dL Lipase 38 (23-300) U/L 10/09/20 Range/Units 10:52 WBC (3.8-10.6) k/uL RBC (4.30-5.90) m/uL Hgb (13.0-17.5) gm/dL Hct (39.0-53.0) % MCV (80.0-100.0) fL MCH (25.0-35.0) pg MCHC (31.0-37.0) g/dL RDW (11.5-15.5) % Plt Count (150-450) k/uL MPV Neutrophils % % Lymphocytes % % Monocytes % % Eosinophils % % Basophils % % Neutrophils # (1.3-7.7) k/uL Lymphocytes # (1.0-4.8) k/uL Monocytes # (0-1.0) k/uL Eosinophils # (0-0.7) k/uL Basophils # (0-0.2) k/uL PT (9.0-12.0) sec INR (<1.2) APTT (22.0-30.0) sec D-Dimer (<0.60) mg/L FEU Sodium (137-145) mmol/L Potassium (3.5-5.1) mmol/L Chloride (98-107) mmol/L Carbon Dioxide (22-30) mmol/L Anion Gap mmol/L BUN (9-20) mg/dL Creatinine (0.66-1.25) mg/dL Est GFR (CKD-EPI)AfAm (>60 ml/min/1.73 sqM) Est GFR (CKD-EPI)NonAf (>60 ml/min/1.73 sqM) Glucose (74-99) mg/dL Calcium (8.4-10.2) mg/dL Magnesium (1.6-2.3) mg/dL Total Bilirubin (0.2-1.3) mg/dL AST (17-59) U/L ALT (4-49) U/L Alkaline Phosphatase (38-126) U/L Troponin I <0.012 (0.000-0.034) ng/mL Total Protein (6.3-8.2) g/dL Albumin (3.5-5.0) g/dL Lipase (23-300) U/L Disposition Clinical Impression: Atypical chest pain Disposition: HOME SELF-CARE Condition: Good Instructions (If sedation given, give patient instructions): Chest Pain (ED) Is patient prescribed a controlled substance at d/c from ED?: No Referrals: Niko Abraham MD [Primary Care Provider] - 1-2 days
[2020-10-09 11:16] LABS: Basophils % (A) 1 %; Eosinophils # (A) 0.2 k/uL (0-0.7); Eosinophils % (A) 2 %; HCT 39.3 % (39.0-53.0); HGB 13.4 gm/dL (13.0-17.5); Lymphocytes # (A) 1.5 k/uL (1.0-4.8); Lymphocytes % (A) 19 %; MCH 30.7 pg (25.0-35.0); MCV 90.4 fL (80.0-100.0); Mean Platelet Volume 8.1; Monocytes # (A) 0.5 k/uL (0-1.0); Monocytes % (A) 7 %; Neutrophils # (A) 5.4 k/uL (1.3-7.7); Neutrophils % (A) 69 %; Platelet Count 154 k/uL (150-450); RBC 4.35 m/uL (4.30-5.90); RDW 15.1 % (11.5-15.5); WBC 7.9 k/uL (3.8-10.6)
[2020-10-09 11:27] LABS: ALT 18 U/L (4-49); AST 32 U/L (17-59); African American GFR (CKD) >90 (>60 ml/min/1.73 sqM); Albumin 3.9 g/dL (3.5-5.0); Alkaline Phosphatase 92 U/L (38-126); Anion Gap 11 mmol/L; Blood Urea Nitrogen 31 mg/dL (9-20); Calcium 9.5 mg/dL (8.4-10.2); Carbon Dioxide 19 mmol/L (22-30); Chloride 109 mmol/L (98-107); Glucose 169 mg/dL (74-99); Lipase 38 U/L (23-300); Magnesium 1.7 mg/dL (1.6-2.3); Non-African American GFR(CKD) 80 (>60 ml/min/1.73 sqM); Potassium 4.5 mmol/L (3.5-5.1); Sodium 139 mmol/L (137-145); Total Bilirubin 1.1 mg/dL (0.2-1.3); Total Protein 6.6 g/dL (6.3-8.2)
[2020-10-09 11:28] LABS: Partial Thromboplastin Time 22.4 sec (22.0-30.0); Prothrombin Time 10.5 sec (9.0-12.0)
--- NOTE | 2020-10-09 11:44 | XR ---
EXAMINATION TYPE: XR chest 2V DATE OF EXAM: 10/09/2020 COMPARISON: 10/04/2020 INDICATION: Chest pain TECHNIQUE: Frontal and lateral views of the chest are obtained. FINDINGS: The heart size is normal. The pulmonary vasculature is normal. There may be minimal infiltrate at the left costophrenic angle. Correlate for atelectasis.. IMPRESSION: 1. Suggestion of minimal atelectasis left costophrenic angle.
--- NOTE | 2020-10-09 12:36 | CT ---
EXAMINATION TYPE: CT angio chest DATE OF EXAM: 10/09/2020 COMPARISON: 12/06/2017 HISTORY: 85-year-old male Shortness of breath and left sided pain. TECHNIQUE: Contiguous axial scanning of the chest performed with IV Contrast, patient injected with 1 00 mL of Isovue 370. Coronal/sagittal MIP reconstructions performed. CT DLP: 475.7 mGycm Automated exposure control for dose reduction was used. FINDINGS: Heart borderline in size with trace 4 mm thick pericardial effusion. Extensive 3 vessel coronary rafael ry calcifications are present. No reflux of contrast into the hepatic veins. 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 Conventional arch vessel branching anatomy. Redemonstrated goiter is enlargement of the right lobe of the thyroid gland. Scattered nonenlarged me diastinal lymph nodes measuring up to 9 mm. Mild bilateral gynecomastia. New bilateral infrahilar soft tissue measuring 1.5 cm on the left and 2.0 cm on the right. Satisfactory opacification of the pulmonary arterial system. Large caliber to the main right and left pulmonary arteries measuring up to 2.9 cm suggesting underlying pulmonary artery hypertension. Breat marlen motion artifact at the lung bases. This causes some limitation in assessment of the segmental an d more distal arterial branches, particularly at the left base. No definite pulmonary embolus is seen . There is a trace left pleural effusion with prominent adjacent patchy left basilar opacity. Dependent atelectasis is also present at the right base. Mild to moderate upper lung centrilobular emphysema. Visualized upper abdomen shows a stable mildly enlarged 1.5 cm gastrohepatic ligament lymph node. Per ipancreatic lymph node 1.7 cm, unchanged. Bones: Degenerative changes at the sternoclavicular joint. Bridging anterior endplate spondylosis low er thoracic spine. IMPRESSION: 1. BORDERLINE CARDIOMEGALY, TRACE PERICARDIAL EFFUSION, CAD WITH EXTENSIVE THREE-VESSEL CORONARY RAFAEL RY CALCIFICATIONS, PULMONARY ARTERIAL HYPERTENSION, AND TRACE SUBPULMONIC PLEURAL EFFUSION ON THE LEF T WITH ADJACENT ATELECTASIS. CORRELATE FOR POSSIBLE MILD CHF. 2. 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 3. SOME BREATHING MOTION ARTIFACT ESPECIALLY AT THE LEFT BASE. NO DEFINITE PULMONARY EMBOLUS. 4. NEW BILATERAL INFRAHILAR SOFT TISSUE MEASURING UP TO 2.0 CM ON THE RIGHT AND 1.5 CM ON THE LEFT. S USPECT REACTIVE BRONCHIAL LYMPH NODES. FOLLOW-UP CONTRAST-ENHANCED CT CHEST IN 3 MONTHS TO ENSURE STA BILITY/RESOLUTION.
[2020-10-09] MEDS ORDERED: KETOROLAC 15 MG/ML 1 ML VIAL IVP STA (14:32)
--- NOTE | 2020-10-09 14:36 | P.CRDCN ---
History of Present Illness Consult date: 10/09/20 History of present illness: This is an informal consultation as the patient was evaluated in the emergency room and not admitted to the hospital. There was no formal consult placed as the patient was discharged home. However, cardiology was asked to evaluate patient by the ER physician prior to discharge. This is an 85-year-old man with a history of coronary artery disease, hypertension, hyperlipidemia, and bladder cancer who follows in the office with Dr. Luna. The patient presented to the emergency room with a chief complaint of chest pain. The patient did have a cardiac catheterization performed in 2018 secondary to an abnormal stress test revealing left main no high-grade stenosis, LAD with an area of 30-40% intimal disease in the proximal and midportion, circumflex with a tortuous segment with 99% stenosis in the proximal portion and RCA with no evidence of high-grade stenosis. At that time PCI was attempted however was unsuccessful due to heavy calcifications. Echocardiogram performed 10/05/2020 revealed ejection fraction 50-55%. Mild mitral regurg patient. Mild tricuspid regurgitation. Dr. Hui was called by the emergency room physician to evaluate the patient. The patient was examined in the emergency room. The patient states his pain is worse with deep inspiration and with palpation. He denies any radiation of the pain. He denied any shortness of breath. The patient's symptoms are very atypical for angina. Patient's EKG does not reveal any ischemic changes. He has [address] Hui, the patient may be discharged home today from the emergency room. He does not require inpatient admission. He is to follow up outpatient with Dr. Luna. Nurse practitioner note has been reviewed by physician. Signing provider agrees with the documented findings, assessment, and plan of care. Past Medical History Past Medical History: Coronary Artery Disease (CAD), Cancer, Diabetes Mellitus, Hyperlipidemia, Hypertension Additional Past Medical History / Comment(s): BPH bladder cancer History of Any Multi-Drug Resistant Organisms: None Reported Past Surgical History: Appendectomy, Bladder Surgery, Joint Replacement, Tonsillectomy Additional Past Surgical History / Comment(s): left knee replaced, right rotator cuff SX, COLONOSCOPY, Past Anesthesia/Blood Transfusion Reactions: No Reported Reaction Past Psychological History: No Psychological Hx Reported Smoking Status: Never smoker Past Alcohol Use History: Occasional Past Drug Use History: None Reported - Past Family History Mother Family Medical History: No Reported History Additional Family Medical History / Comment(s): Mother had history of congenital heart disease, CHF. Father Family Medical History: No Reported History, CVA/TIA Additional Family Medical History / Comment(s): Father contracted malaria. History of CVA. Brother(s) Family Medical History: No Reported History Additional Family Medical History / Comment(s): Brother has history of headaches. Sister(s) Family Medical History: No Reported History Daughter(s) Family Medical History: No Reported History Additional Family Medical History / Comment(s): Patient has one daughter with no major medical problems. Son(s) Family Medical History: No Reported History Additional Family Medical History / Comment(s): Patient has one son with no major medical problems. Medications and Allergies Home Medications Medication Instructions Recorded Confirmed Type Insulin Glargine,Hum.rec.anlog 65 unit SQ HS 02/21/14 10/09/20 History [Lantus Solostar] Rosuvastatin Calcium [Crestor] 10 mg PO DAILY 02/21/14 10/09/20 History allopurinoL [Zyloprim] 100 mg PO DAILY 02/21/14 10/09/20 History sitaGLIPtin PHOS/metFORMIN HCL 1 tab PO DAILY 02/21/14 10/09/20 History [Janumet 50-1,000 mg Tablet] Aspirin EC [Ecotrin Low Dose] 81 mg PO DAILY 08/02/15 10/09/20 History Nitroglycerin Sl Tabs [Nitrostat] 0.4 mg SUBLINGUAL Q5M PRN #30 tab 12/07/17 10/09/20 Rx lisinopriL [Zestril] 2.5 mg PO DAILY tab 12/07/17 10/09/20 Rx Insulin Lispro [humaLOG Kwikpen] 10 unit SQ AC-TID 10/04/20 10/09/20 History Isosorbide Mononitrate ER [Imdur] 30 mg PO DAILY #30 tab.er.24h 10/05/20 10/09/20 Rx Allergies Allergy/AdvReac Type Severity Reaction Status Date / Time No Known Allergies Allergy Verified 10/09/20 11:35 Physical Exam Vitals: Vital Signs Temp Pulse Resp BP Pulse Ox 10/09/20 13:07 84 18 127/84 96 10/09/20 11:00 18 10/09/20 10:22 97.9 F 79 18 118/65 96 Intake and Output 10/08/20 10/09/20 10/09/20 22:59 06:59 14:59 Other: Weight 102.058 kg Results 10/09/20 10:52 10/09/20 10:52 Cardiac Enzymes 10/09/20 10/09/20 10/09/20 Range/Units 10:52 10:52 13:34 AST 32 (17-59) U/L Troponin I <0.012 <0.012 (0.000-0.034) ng/mL Coagulation 10/09/20 Range/Units 10:52 PT 10.5 (9.0-12.0) sec APTT 22.4 (22.0-30.0) sec CBC 10/09/20 Range/Units 10:52 WBC 7.9 (3.8-10.6) k/uL RBC 4.35 (4.30-5.90) m/uL Hgb 13.4 (13.0-17.5) gm/dL Hct 39.3 (39.0-53.0) % Plt Count 154 (150-450) k/uL Comprehensive Metabolic Panel 10/09/20 Range/Units 10:52 Sodium 139 (137-145) mmol/L Potassium 4.5 (3.5-5.1) mmol/L Chloride 109 H (98-107) mmol/L Carbon Dioxide 19 L (22-30) mmol/L BUN 31 H (9-20) mg/dL Creatinine 0.86 (0.66-1.25) mg/dL Glucose 169 H (74-99) mg/dL Calcium 9.5 (8.4-10.2) mg/dL AST 32 (17-59) U/L ALT 18 (4-49) U/L Alkaline Phosphatase 92 (38-126) U/L Total Protein 6.6 (6.3-8.2) g/dL Albumin 3.9 (3.5-5.0) g/dL Intake and Output 10/08/20 10/09/20 10/09/20 22:59 06:59 14:59 Other: Weight 102.058 kg Patient Weight 10/10/20 06:59 Weight 102.058 kg 10/09/20 10:52 08/09/21 10:52
[2020-10-09 14:38] VITALS: BP 130/69; PULSE 76; RESP 20
== END 2020-10-09 14:44 | disposition home or self-care (01) ==
LOC: EC 10:20
DX: R07.89 Other chest pain (principal); R06.00 Dyspnea, unspecified; M79.606 Pain in leg, unspecified; E11.9 Type 2 diabetes mellitus without complications; I10 Essential (primary) hypertension; E78.5 Hyperlipidemia, unspecified; Z79.899 Other long term (current) drug therapy; Z79.82 Long term (current) use of aspirin; Z79.84 Long term (current) use of oral hypoglycemic drugs
CPT/HCPCS: 36415; 93005; 85379; 80053; 83690; 83735; 84484; 85025; 85610; 85730; 71046; 71275; 99285; 96374; J1885; Q9967

== ENCOUNTER 2020-11-16 05:46 | Day surgery (SDC) | payer MEDICARE ==
[2020-11-13 16:16] VITALS: BMI 31.4
[2020-11-16] MEDS ORDERED: LACTATED RINGERS 1,000 ML IV SCH (05:58)
[2020-11-16] MEDS ORDERED: SODIUM CHLORIDE 0.9% 1,000 ML IV SCH ×2 (05:58→07:45)
[2020-11-16 06:29] LABS: Glucose,Whole Blood 164 mg/dL (75-99)
[2020-11-16 06:47] LABS: African American GFR (CKD) >90 (>60 ml/min/1.73 sqM); Anion Gap 9 mmol/L; Blood Urea Nitrogen 20 mg/dL (9-20); Calcium 9.8 mg/dL (8.4-10.2); Carbon Dioxide 23 mmol/L (22-30); Chloride 111 mmol/L (98-107); Glucose 161 mg/dL (74-99); Non-African American GFR(CKD) 85 (>60 ml/min/1.73 sqM); Potassium 4.4 mmol/L (3.5-5.1); Sodium 143 mmol/L (137-145)
[2020-11-16] MEDS ORDERED: BENZOCAINE SPRAY 1 CAN TOPICAL ONE (07:11)
[2020-11-16 07:14] VITALS: TEMP 98
[2020-11-16] MEDS ORDERED: PROPOFOL 10 MG/ML 20 ML VIAL IV ONE (07:15)
--- NOTE | 2020-11-16 08:55 | ECHOT ---
TRANSESOPHAGEAL ECHOCARDIOGRAM INDICATION: Evaluation left atrial appendage. After explaining the procedure to the patient as well as its risks and the complications, blood pressure, heart rate, O2 saturation was monitored. The throat was sprayed with Cetacaine. Please see the sedation per Anesthesia Department. The probe was introduced esophagus without difficulty. Images were obtained. Following that, the probe was removed there was no immediate complication. FINDINGS: Left atrial size is mildly dilated. Left atrial appendage is normal. Left ventricular size and systolic function normal. The aortic valve revealed mild fibrocalcific changes with aortic cusp with preserved opening. Mitral valve appears to be normal. Descending thoracic aorta showed mild atherosclerotic changes. No pericardial effusion was noted. The interatrial septum was highly mobile and there was minimal late shunting with contrast bubble study. DOPPLER: Pulse wave and color Doppler obtained revealed mild mitral and tricuspid regurgitation. There was no shunting by color Doppler study. CONCLUSION: 1. Mildly dilated left atrium with normal appearance left atrial appendage. 2. Normal left ventricular size and systolic function. 3. Aortic sclerosis with no evident stenosis. 4. Mild mitral and tricuspid regurgitation. 5. A late shunting across the interatrial septum. 6. Mild atherosclerotic change of the descending thoracic aorta. 7. No pericardial effusion. MMODL / IJN: [id number] /
[2020-11-16] MEDS ORDERED: ISOSORBIDE MONONITRATE ER 30 MG TAB.ER.24H PO SCH (09:00)
[2020-11-16] MEDS ORDERED: NON FORMULARY DRUG (Rosuvastatin Calcium [Crestor] 10 MG Tablet) PO SCH (09:00)
[2020-11-16] MEDS ORDERED: NON FORMULARY DRUG (Aspirin Ec 81 MG Tablet.Dr) PO SCH (09:00)
[2020-11-16] MEDS ORDERED: NON FORMULARY DRUG (Sitagliptin Phos/Metformin Hcl [Janumet 50-1,000 Mg Tablet] 1 EACH Tab PO SCH (09:00)
[2020-11-16] MEDS ORDERED: APIXABAN 5 MG TAB PO SCH (09:00)
[2020-11-16] MEDS ORDERED: allopurinoL 100 MG TAB PO SCH (09:00)
--- NOTE | 2020-11-16 09:11 | PCN ---
PROCEDURE NOTE INDICATION: Atrial fibrillation. PROCEDURE DESCRIPTION: After explaining the procedure to the patient, its risks and complications, his blood pressure, heart rate and O2 saturations were monitored. After obtaining transesophageal echocardiogram and obtaining sedated state per Anesthesia Department, a synchronized biphasic cardioversion using 75 joules was performed, with hindu of normal sinus rhythm. There was no immediate complication. GARRY / ALESHA: [id number] /
[2020-11-16] MEDS ORDERED: NON FORMULARY DRUG (Insulin Lispro [Humalog Kwikpen] 100 UNIT/ML Insuln.Pen) SQ SCH (12:30)
[2020-11-16 16:40] VITALS: RESP 16
[2020-11-16 16:41] VITALS: BP 129/72; PULSE 80
[2020-11-16] MEDS ORDERED: [UNRECOGNIZED DRUG - OTHER] SQ SCH (21:00)
[2020-11-16] MEDS ORDERED: INSULIN GLARGINE HUM REC ANLOG 100 UNIT/ML SQ SCH (21:00)
== END 2020-11-16 09:20 | disposition home or self-care (01) ==
LOC: CATHCVL 05:46
PROVIDERS: ATTEND Internal Medicine Interventional Cardiology
DX: I48.91 Unspecified atrial fibrillation (principal); I70.0 Atherosclerosis of aorta; I25.10 Atherosclerotic heart disease of native coronary artery without angina pectoris; I48.3 Typical atrial flutter; E78.2 Mixed hyperlipidemia; E11.9 Type 2 diabetes mellitus without complications; I10 Essential (primary) hypertension; Z79.82 Long term (current) use of aspirin; Z79.01 Long term (current) use of anticoagulants; Z79.4 Long term (current) use of insulin; Z85.51 Personal history of malignant neoplasm of bladder; Z90.49 Acquired absence of other specified parts of digestive tract; Z98.890 Other specified postprocedural states
CPT/HCPCS: 93312; 93320; 93005; 93325; 92960; 80048; J2704

== ENCOUNTER 2021-01-13 18:11 | Emergency (ER) | payer MEDICARE ==
--- NOTE | 2021-01-13 18:59 | ED ---
General Adult HPI - General Chief complaint: Urogenital Stated complaint: Blood in Urine Time Seen by Provider: 01/13/21 18:28 Source: patient, RN notes reviewed, old records reviewed Mode of arrival: ambulatory Limitations: no limitations - History of Present Illness Initial comments: 85-year-old male presenting with hematuria. Patient states that about 6 about one week ago he had some bright red blood in his urine. He had stopped his eliquis and he states that this completely resolved and he had normal clear yellow urine. No dysuria at that time. Again this evening he developed bright red hematuria. He does have history of bladder cancer and is following with urology. He denies fever. Denies flank pain. Denies abdominal pain. - Related Data Home Medications Medication Instructions Recorded Confirmed Insulin Glargine,Hum.rec.anlog 65 unit SQ HS 02/21/14 11/16/20 [Lantus Solostar Pen] Rosuvastatin Calcium [Crestor] 10 mg PO DAILY 02/21/14 11/16/20 allopurinoL [Zyloprim] 100 mg PO DAILY 02/21/14 11/16/20 sitaGLIPtin PHOS/metFORMIN HCL 1 tab PO BID 02/21/14 11/16/20 [Janumet 50-1,000 mg Tablet] Aspirin EC [Ecotrin Low Dose] 81 mg PO DAILY 08/02/15 11/16/20 Insulin Lispro [humaLOG Kwikpen] 10 unit SQ AC-TID 10/04/20 11/16/20 Apixaban [Eliquis] 5 mg PO BID 11/13/20 11/16/20 Previous Rx's Medication Instructions Recorded lisinopriL [Zestril] 2.5 mg PO DAILY tab 12/07/17 Isosorbide Mononitrate ER [Imdur] 30 mg PO DAILY #30 tab.er.24h 10/05/20 Cephalexin [Keflex] 500 mg PO TID 10 Days #30 cap 01/13/21 Allergies Allergy/AdvReac Type Severity Reaction Status Date / Time No Known Allergies Allergy Verified 01/13/21 18:25 Review of Systems ROS Statement: Those systems with pertinent positive or pertinent negative responses have been documented in the HPI. ROS Other: All systems not noted in ROS Statement are negative. Past Medical History Past Medical History: Atrial Flutter, Coronary Artery Disease (CAD), Cancer, Chest Pain / Angina, Diabetes Mellitus, Hearing Disorder / Deafness, Hyperlipidemia, Hypertension, Prostate Disorder, Renal Disease Additional Past Medical History / Comment(s): BPH, bladder cancer 07/01/20, hearing aids History of Any Multi-Drug Resistant Organisms: None Reported Past Surgical History: Appendectomy, Bladder Surgery, Heart Catheterization, Joint Replacement, Tonsillectomy Additional Past Surgical History / Comment(s): left knee replaced, right rotator cuff SX, COLONOSCOPY, Past Anesthesia/Blood Transfusion Reactions: No Reported Reaction Past Psychological History: Depression Smoking Status: Former smoker Past Alcohol Use History: Occasional Past Drug Use History: None Reported - Past Family History Mother Family Medical History: No Reported History Additional Family Medical History / Comment(s): Mother had history of congenital heart disease, CHF. Father Family Medical History: CVA/TIA Additional Family Medical History / Comment(s): Father contracted malaria. History of CVA. Brother(s) Family Medical History: No Reported History Additional Family Medical History / Comment(s): Brother has history of headaches. Sister(s) Family Medical History: No Reported History Daughter(s) Family Medical History: No Reported History Additional Family Medical History / Comment(s): Patient has one daughter with no major medical problems. Son(s) Family Medical History: No Reported History Additional Family Medical History / Comment(s): Patient has one son with no major medical problems. General Exam Limitations: no limitations General appearance: alert, in no apparent distress Head exam: Present: atraumatic, normocephalic Eye exam: Present: normal appearance, PERRL ENT exam: Present: normal exam Neck exam: Present: normal inspection. Absent: tenderness, meningismus Respiratory exam: Present: normal lung sounds bilaterally. Absent: respiratory distress, wheezes Cardiovascular Exam: Present: regular rate, normal rhythm GI/Abdominal exam: Present: soft. Absent: distended, tenderness, guarding Extremities exam: Present: normal inspection, normal capillary refill Neurological exam: Present: alert, oriented X3, CN II-XII intact. Absent: motor sensory deficit Psychiatric exam: Present: normal affect, normal mood Skin exam: Present: warm, dry, intact. Absent: cyanosis, diaphoretic Course Vital Signs 01/13/21 18:20 Temperature 98.4 F Pulse Rate 98 Respiratory 19 Rate Blood Pressure 124/70 O2 Sat by Pulse 99 Oximetry Medical Decision Making - Medical Decision Making 85-year-old male with hematuria, history of bladder cancer, on eliquis. Urine is red, transparent. Patient is able to urinate on command without difficulty. Urinalysis shows moderate bacteria, elevated white blood cells, positive leukocyte Estrace. Urine culture will be performed. Patient is started on antibiotics. He should follow-up with urology. He should return he cannot urinate, develops fever or worsening symptoms. - Lab Data Lab Results 01/13/21 Range/Units 18:42 Urine Color Dark Brown Urine Appearance Turbid (Clear) Urine pH 5.5 (5.0-8.0) Ur Specific [place] 1.022 (1.001-1.035) Urine Protein 2+ H (Negative) Urine Glucose (UA) Trace H (Negative) Urine Ketones Trace H (Negative) Urine Blood Large H (Negative) Urine Nitrite Negative (Negative) Urine Bilirubin Negative (Negative) Urine Urobilinogen <2.0 (<2.0) mg/dL Ur Leukocyte Esterase Moderate H (Negative) Urine RBC >182 H (0-5) /hpf Urine WBC 63 H (0-5) /hpf Urine Bacteria Moderate H (None) /hpf Urine Yeast (Budding) Many H (None) /hpf Disposition Clinical Impression: Gross hematuria, Urinary tract infection Disposition: HOME SELF-CARE Condition: Good Instructions (If sedation given, give patient instructions): Urinary Tract Infection in Men (ED), Hematuria (ED) Prescriptions: Cephalexin [Keflex] 500 mg PO TID 10 Days #30 cap Is patient prescribed a controlled substance at d/c from ED?: No Referrals: Niko Abraham MD [Primary Care Provider] - 1-2 days Alphonse Navarrete MD [STAFF PHYSICIAN] - 1-2 days Time of Disposition: 19:24
[2021-01-13 19:12] LABS: Appearance,Urine Turbid (Clear); Bacteria,Urine Moderate /hpf; Bilirubin,Urine Negative (Negative); Blood,Urine Large (Negative); Budding Yeast,Urine Many /hpf; Color,Urine Dark Brown; Glucose,Urine (UA) Trace (Negative); Ketones,Urine Trace (Negative); Leukocyte Esterase,Urine Moderate (Negative); Nitrite,Urine Negative (Negative); PH, Urine 5.5 (5.0-8.0); Protein,Urine 2+ (Negative); RBC,Urine >182 /hpf (0-5); Urobilinogen,Urine <2.0 mg/dL (<2.0); WBC,Urine 63 /hpf (0-5)
[2021-01-13 19:16] LABS: Specific Gravity,Urine 1.022 (1.001-1.035)
[2021-01-13] MEDS ORDERED: CEPHALEXIN 500 MG CAP PO STA (19:18)
[2021-01-13 19:38] VITALS: BP 141/94; PULSE 90; RESP 18; TEMP 98.1
== END 2021-01-13 19:38 | disposition home or self-care (01) ==
LOC: EC 18:11
DX: N39.0 Urinary tract infection, site not specified (principal); D72.829 Elevated white blood cell count, unspecified; E11.9 Type 2 diabetes mellitus without complications; E78.5 Hyperlipidemia, unspecified; I10 Essential (primary) hypertension; I25.10 Atherosclerotic heart disease of native coronary artery without angina pectoris; N40.0 Benign prostatic hyperplasia without lower urinary tract symptoms; Z79.01 Long term (current) use of anticoagulants; Z79.4 Long term (current) use of insulin; Z79.82 Long term (current) use of aspirin; Z87.891 Personal history of nicotine dependence; Z79.899 Other long term (current) drug therapy
CPT/HCPCS: 81001; 87086; 99283

== ENCOUNTER → 2021-05-25 | Outpatient (CLI) | payer MEDICARE | END | disposition home or self-care (01) | LOC: LABWHC1 15:44 | PROVIDERS: ATTEND Urology | DX: Z53.9 Procedure and treatment not carried out, unspecified reason (principal) ==

== ENCOUNTER 2021-06-04 08:31 | Emergency (ER) | payer MEDICARE ==
[2021-06-04 08:36] VITALS: BP 147/76; PULSE 94; RESP 18; TEMP 97
--- NOTE | 2021-06-04 09:07 | ED ---
General Adult HPI - General Chief complaint: Urogenital Stated complaint: Blood in Urine Time Seen by Provider: 06/04/21 08:40 Source: patient, RN notes reviewed, old records reviewed Mode of arrival: ambulatory Limitations: no limitations - History of Present Illness Initial comments: This is an 86-year-old male who presents emergency Department complaining of blood in his urine. Patient states early in the week he had a cystoscopy done where they removed some tissue from his bladder he is not sure exactly what she was. Patient states he is normally on eliquis and it stopped prior to the procedure and he restarted on Friday. Patient states about 3:00 in the morning he noticed blood in his urine and he decided to come to the emergency department. Patient denies any abdominal pain. Patient denies any burning with urination. Patient's any fever or back pain. She denies lightheadedness dizziness. Patient denies any shortness of breath. - Related Data Home Medications Medication Instructions Recorded Confirmed Insulin Glargine,Hum.rec.anlog 65 unit SQ HS 02/21/14 06/04/21 [Lantus Solostar Pen] Rosuvastatin Calcium [Crestor] 10 mg PO DAILY 02/21/14 06/04/21 allopurinoL [Zyloprim] 100 mg PO DAILY 02/21/14 06/04/21 sitaGLIPtin PHOS/metFORMIN HCL 1 tab PO BID 02/21/14 06/04/21 [Janumet 50-1,000 mg Tablet] Aspirin EC [Ecotrin Low Dose] 81 mg PO DAILY 08/02/15 06/04/21 Insulin Lispro [humaLOG Kwikpen] 12 unit SQ AC-TID 10/04/20 06/04/21 Apixaban [Eliquis] 5 mg PO BID 11/13/20 06/04/21 Canagliflozin [Invokana] 100 mg PO DAILY 06/04/21 06/04/21 Previous Rx's Medication Instructions Recorded lisinopriL [Zestril] 2.5 mg PO DAILY tab 12/07/17 Allergies Allergy/AdvReac Type Severity Reaction Status Date / Time No Known Allergies Allergy Verified 06/04/21 09:52 Review of Systems ROS Statement: Those systems with pertinent positive or pertinent negative responses have been documented in the HPI. ROS Other: All systems not noted in ROS Statement are negative. Past Medical History Past Medical History: Atrial Flutter, Coronary Artery Disease (CAD), Cancer, Chest Pain / Angina, Diabetes Mellitus, Hearing Disorder / Deafness, Hyperlipidemia, Hypertension, Prostate Disorder, Renal Disease Additional Past Medical History / Comment(s): BPH, bladder cancer 07/01/20, hearing aids History of Any Multi-Drug Resistant Organisms: None Reported Past Surgical History: Appendectomy, Bladder Surgery, Heart Catheterization, Joint Replacement, Tonsillectomy Additional Past Surgical History / Comment(s): left knee replaced, right rotator cuff SX, COLONOSCOPY, Past Anesthesia/Blood Transfusion Reactions: No Reported Reaction Past Psychological History: Depression Smoking Status: Former smoker Past Alcohol Use History: Occasional Past Drug Use History: None Reported - Past Family History Mother Family Medical History: No Reported History Additional Family Medical History / Comment(s): Mother had history of congenital heart disease, CHF. Father Family Medical History: CVA/TIA Additional Family Medical History / Comment(s): Father contracted malaria. History of CVA. Brother(s) Family Medical History: No Reported History Additional Family Medical History / Comment(s): Brother has history of headaches. Sister(s) Family Medical History: No Reported History Daughter(s) Family Medical History: No Reported History Additional Family Medical History / Comment(s): Patient has one daughter with no major medical problems. Son(s) Family Medical History: No Reported History Additional Family Medical History / Comment(s): Patient has one son with no major medical problems. General Exam - General Exam Comments Initial Comments: GENERAL: Patient is well-developed and well-nourished. Patient is nontoxic and well- hydrated and is in no acute distress. ENT: Neck is soft and supple. No significant lymphadenopathy is noted. Oropharynx is clear. Moist mucous membranes. Neck has full range of motion without eliciting any pain. EYES: The sclera were anicteric and conjunctiva were pink and moist. Extraocular movements were intact and pupils were equal round and reactive to light. Eyelids were unremarkable. PULMONARY: Unlabored respirations. Good breath sounds bilaterally. No audible rales rhonchi or wheezing was noted. CARDIOVASCULAR: There is a regular rate and rhythm without any murmurs gallops or rubs. ABDOMEN: Soft and nontender with normal bowel sounds. SKIN: Skin is clear with no lesions or rashes and otherwise unremarkable. NEUROLOGIC: Patient is alert and oriented x3. Cranial nerves II through XII are grossly intact. Motor and sensory are also intact. Normal speech, volume and content. Symmetrical smile. MUSCULOSKELETAL: Normal extremities with adequate strength and full range of motion. LYMPHATICS: No significant lymphadenopathy is noted PSYCHIATRIC: Normal psychiatric evaluation. Limitations: no limitations Course Vital Signs 06/04/21 08:31 Temperature 97.0 F L Pulse Rate 94 Respiratory 18 Rate Blood Pressure 147/76 O2 Sat by Pulse 99 Oximetry Medical Decision Making - Medical Decision Making Patient's hemoglobin was stable. I spoke with Dr. Ibarra he was comfortable and the patient go home and is holding the eliquis until he had 24 hours of no hematuria and then he started eliquis again. - Lab Data Result diagrams: 06/04/21 09:43 Lab Results 06/04/21 06/04/21 Range/Units 09:11 09:43 WBC 6.2 (3.8-10.6) k/uL RBC 4.72 (4.30-5.90) m/uL Hgb 10.4 L (13.0-17.5) gm/dL Hct 34.8 L (39.0-53.0) % MCV 73.8 L (80.0-100.0) fL MCH 22.1 L (25.0-35.0) pg MCHC 29.9 L (31.0-37.0) g/dL RDW 16.7 H (11.5-15.5) % Plt Count 151 (150-450) k/uL MPV 8.2 Neutrophils % 61 % Lymphocytes % 26 % Monocytes % 6 % Eosinophils % 4 % Basophils % 1 % Neutrophils # 3.8 (1.3-7.7) k/uL Lymphocytes # 1.6 (1.0-4.8) k/uL Monocytes # 0.4 (0-1.0) k/uL Eosinophils # 0.2 (0-0.7) k/uL Basophils # 0.0 (0-0.2) k/uL Hypochromasia Marked Poikilocytosis Slight Anisocytosis Slight Microcytosis Moderate Urine Color Red Urine Appearance Bloody (Clear) Urine RBC >182 H (0-5) /hpf Urine WBC 36 H (0-5) /hpf Disposition Clinical Impression: Hematuria Disposition: HOME SELF-CARE Additional Instructions: Patient should hold his eliquis until his urine is clear for 24 hours that he can restart the eliquis. Is patient prescribed a controlled substance at d/c from ED?: No Referrals: Niko Abraham MD [Primary Care Provider] - 1-2 days Time of Disposition: 10:00
[2021-06-04 09:49] LABS: Anisocytosis Slight; Basophils % (A) 1 %; Eosinophils # (A) 0.2 k/uL (0-0.7); Eosinophils % (A) 4 %; HCT 34.8 % (39.0-53.0); HGB 10.4 gm/dL (13.0-17.5); Hypochromasia Marked; Lymphocytes # (A) 1.6 k/uL (1.0-4.8); Lymphocytes % (A) 26 %; MCH 22.1 pg (25.0-35.0); MCHC 29.9 g/dL (31.0-37.0); MCV 73.8 fL (80.0-100.0); Mean Platelet Volume 8.2; Microcytosis Moderate; Monocytes # (A) 0.4 k/uL (0-1.0); Monocytes % (A) 6 %; Neutrophils # (A) 3.8 k/uL (1.3-7.7); Neutrophils % (A) 61 %; Platelet Count 151 k/uL (150-450); Poikilocytosis Slight; RBC 4.72 m/uL (4.30-5.90); RDW 16.7 % (11.5-15.5); WBC 6.2 k/uL (3.8-10.6)
[2021-06-04 09:55] LABS: Appearance,Urine Bloody (Clear); Color,Urine Red; RBC,Urine >182 /hpf (0-5); WBC,Urine 36 /hpf (0-5)
== END 2021-06-04 10:28 | disposition home or self-care (01) ==
LOC: EC 08:31
DX: R31.9 Hematuria, unspecified (principal); I25.10 Atherosclerotic heart disease of native coronary artery without angina pectoris; E11.9 Type 2 diabetes mellitus without complications; I10 Essential (primary) hypertension; Z79.82 Long term (current) use of aspirin; H91.90 Unspecified hearing loss, unspecified ear; Z87.891 Personal history of nicotine dependence
CPT/HCPCS: 36415; 81001; 85025; 87086; 99283

== ENCOUNTER 2021-07-30 04:36 | Observation (INO) | payer MEDICARE ==
[2021-07-30] MEDS ORDERED: IPRATROPIUM-ALBUTEROL 3 ML NEB INHALATION STA (05:09)
[2021-07-30] MEDS ORDERED: SODIUM CHLORIDE 0.9% 1,000 ML IV STA (05:09)
--- NOTE | 2021-07-30 05:10 | ED ---
SOB HPI - General Chief Complaint: Shortness of Breath Stated Complaint: JOAN Time Seen by Provider: 07/30/21 05:09 Source: patient Mode of arrival: wheelchair Limitations: no limitations - Related Data Home Medications Medication Instructions Recorded Confirmed Insulin Glargine,Hum.rec.anlog 65 unit SQ HS 02/21/14 06/04/21 [Lantus Solostar Pen] Rosuvastatin Calcium [Crestor] 10 mg PO DAILY 02/21/14 06/04/21 allopurinoL [Zyloprim] 100 mg PO DAILY 02/21/14 06/04/21 sitaGLIPtin PHOS/metFORMIN HCL 1 tab PO BID 02/21/14 06/04/21 [Janumet 50-1,000 mg Tablet] Aspirin EC [Ecotrin Low Dose] 81 mg PO DAILY 08/02/15 06/04/21 Insulin Lispro [humaLOG Kwikpen] 12 unit SQ AC-TID 10/04/20 06/04/21 Apixaban [Eliquis] 5 mg PO BID 11/13/20 06/04/21 Canagliflozin [Invokana] 100 mg PO DAILY 06/04/21 06/04/21 Previous Rx's Medication Instructions Recorded lisinopriL [Zestril] 2.5 mg PO DAILY tab 12/07/17 Allergies Allergy/AdvReac Type Severity Reaction Status Date / Time No Known Allergies Allergy Verified 07/30/21 05:05 Review of Systems ROS Statement: Those systems with pertinent positive or pertinent negative responses have been documented in the HPI. ROS Other: All systems not noted in ROS Statement are negative. Past Medical History Past Medical History: Atrial Flutter, Coronary Artery Disease (CAD), Cancer, Chest Pain / Angina, Diabetes Mellitus, Hearing Disorder / Deafness, Hyperlipidemia, Hypertension, Prostate Disorder, Renal Disease Additional Past Medical History / Comment(s): BPH, bladder cancer 07/01/20, hearing aids History of Any Multi-Drug Resistant Organisms: None Reported Past Surgical History: Appendectomy, Bladder Surgery, Heart Catheterization, Joint Replacement, Tonsillectomy Additional Past Surgical History / Comment(s): left knee replaced, right rotator cuff SX, COLONOSCOPY, Past Anesthesia/Blood Transfusion Reactions: No Reported Reaction Past Psychological History: Depression Smoking Status: Former smoker Past Alcohol Use History: Occasional Past Drug Use History: None Reported - Past Family History Mother Family Medical History: No Reported History Additional Family Medical History / Comment(s): Mother had history of congenital heart disease, CHF. Father Family Medical History: CVA/TIA Additional Family Medical History / Comment(s): Father contracted malaria. History of CVA. Brother(s) Family Medical History: No Reported History Additional Family Medical History / Comment(s): Brother has history of headaches. Sister(s) Family Medical History: No Reported History Daughter(s) Family Medical History: No Reported History Additional Family Medical History / Comment(s): Patient has one daughter with no major medical problems. Son(s) Family Medical History: No Reported History Additional Family Medical History / Comment(s): Patient has one son with no major medical problems. General Exam Limitations: no limitations Course Vital Signs 07/30/21 05:05 Pulse Rate 78 Respiratory 16 Rate Blood Pressure 104/58 O2 Sat by Pulse 98 Oximetry Medical Decision Making - EKG Data -: EKG Interpreted by Me (EKG is sinus rhythm 70 [place] 219 QRS 99 QTc 409) Disposition Referrals: Niko Abraham MD [Primary Care Provider] - 1-2 days
[2021-07-30 05:33] LABS: Anisocytosis Slight; Basophils % (A) 0 %; Eosinophils # (A) 0.2 k/uL (0-0.7); Eosinophils % (A) 6 %; HCT 24.8 % (39.0-53.0); Hypochromasia Marked; Lymphocytes # (A) 1.1 k/uL (1.0-4.8); Lymphocytes % (A) 26 %; MCHC 28.4 g/dL (31.0-37.0); MCV 70.5 fL (80.0-100.0); Mean Platelet Volume 8.9; Microcytosis Marked; Monocytes # (A) 0.3 k/uL (0-1.0); Monocytes % (A) 6 %; Neutrophils # (A) 2.4 k/uL (1.3-7.7); Neutrophils % (A) 59 %; Platelet Count 130 k/uL (150-450); Poikilocytosis Slight; RBC 3.52 m/uL (4.30-5.90); RDW 17.2 % (11.5-15.5); WBC 4.1 k/uL (3.8-10.6)
--- NOTE | 2021-07-30 05:33 | XR ---
EXAMINATION TYPE: XR chest 2V DATE OF EXAM: 07/30/2021 COMPARISON: 10/09/2020 HISTORY: Vertebra TECHNIQUE: FINDINGS: Heart is normal. Lungs are clear of consolidation. There is no heart failure. There are no hilar masses. Thoracic aorta is atheromatous. There are chest leads. Costophrenic angles are clear. IMPRESSION: No active cardiopulmonary disease. Normal heart. There is clearing of the pleural reactio n left lung base compared to old exam.
[2021-07-30 05:36] LABS: HGB 7.1 gm/dL (13.0-17.5)
[2021-07-30 05:52] LABS: INR 1.1 (<1.2); Partial Thromboplastin Time 24.8 sec (22.0-30.0); Prothrombin Time 11.4 sec (9.0-12.0)
[2021-07-30 05:57] LABS: Albumin 3.5 g/dL (3.5-5.0); Calcium 8.3 mg/dL (8.4-10.2); Magnesium 1.8 mg/dL (1.6-2.3); Potassium 4.6 mmol/L (3.5-5.1); Total Bilirubin 0.5 mg/dL (0.2-1.3)
[2021-07-30] MEDS ORDERED: NALOXONE 0.4 MG/ML 1 ML VIAL IV PRN (06:26)
[2021-07-30] MEDS: SODIUM CHLORIDE 0.9% 1,000 ML IV SCH (06:48)
--- NOTE | 2021-07-30 09:42 | P.HPIM ---
History of Present Illness H&P Date: 07/30/21 Chief Complaint: Dyspnea on exertion/anemia HISTORY OF PRESENT ILLNESS This is an 86-year-old male patient of mine with past medical history of akbar ry artery disease, hypertension, hyperlipidemia, diabetes mellitus type 2, generalized anxiety disorder, bladder cancer under the care of Dr. Navarrete, chronic gout. Patient states that he was seen by Dr. Navarrete in his office last Friday Patient is undergoing BCG last with installation in the bladder for 2 hours and after that patient will void he was supposed to return to the office next Friday for another treatment however the patient became quite weak with generalized weakness and increased swelling in both lower extremities associated with increased dyspnea on exertion, so he ended up coming to the emergency department at [facility] yesterday and he was found to have a hemo globin of 7 central sequelae was admitted to the hospital for blood transfusion and evaluated the patient EKG did not show evidence of acute ST-T wave changes, his laboratory evaluation otherwise were within normal. REVIEW OF SYSTEMS Constitutional: No fever, no chills, no night sweats. No weight change. Generalized weakness,no fatigue or lethargy. No daytime sleepiness. HEENT: No headache. No blurred vision or double vision, no loss of vision. hard of Hearing, no ringing in the ears, no dizziness. No nasal drainage or congestion. No epistaxis. No sore throat. Lungs: Positive for shortness of breath,no cough, no sputum production. No wheezing. Cardiovascular: Reports no chest pain, positive for lower extremity edema. No palpitations. No paroxysmal nocturnal dyspnea. No orthopnea. No lightheadedness or dizziness. No syncopal episodes. Abdominal: No abdominal pain. No nausea, vomiting. No diarrhea. No constipation. No bloody or tarry stools.. No loss of appetite. Genitourinary: No dysuria, increased frequency, urgency. No urinary retention. Musculoskeletal: No myalgias. No muscle weakness, no gait dysfunction, no frequent falls. No back pain. No neck pain. Integumentary: No wounds, no lesions. No rash or pruritus. No unusual bruising. No change in hair or nails. Neurologic: No aphasia. No facial droop. No change in mentation. No head injury. No headache. No paralysis. No paresthesia. Psychiatric: No depression. No anxiety. No mood swings. Endocrine: No abnormal blood sugars. No weight change. MEDICAL HISTORY Coronary artery disease Hypertension Hyperlipidemia Diabetes mellitus type 2 Generalized anxiety disorder Bladder cancer Chronic gout SURGICAL HISTORY Left total knee arthroplasty Right shoulder rotator cuff repair Bladder surgery Appendectomy Tonsillectomy Colonoscopy and EGD 2020. SOCIAL HISTORY Patient has remote history of tobacco use, no alcohol use, marijuana or illicit drug use. FAMILY HISTORY Father from a stroke with history of malaria at 27 years of age. Mother at age 83 from heart failure. Patient has one half brother that at age 56 from Covid and [place]. Patient has one daughter with no major medical problems and 2 sons with no major medical problems. PHYSICAL EXAMINATION Gen: This is an 86-year-old male patient. He is resting in bed appears to be comfortable and in no acute distress. HEENT: Head is atraumatic, normocephalic. Pupils equal, round. Sclerae is anicteric, conjunctiva were pale mucous membranes of the mouth are somewhat dry. NECK: Supple. No JVD. No lymphadenopathy. No thyromegaly. LUNGS: decreased breath sound at bases, few rhonchi, no expiratory wheezes, no chest wall tenderness, no intercostal retractions. HEART: First heart sound is depressed, second heart sound is normal, 2/6 systolic ejection murmur at the left sternal border. No S3, no S4. ABDOMEN: Soft. Bowel sounds are present. No masses. No tenderness. EXTREMITIES: +2 edema no calf tenderness, dorsalis pedis +2 bilaterally. NEUROLOGICAL: Patient is awake, alert and oriented x3. Cranial nerves 2 through 12 are grossly intact, muscle power 4 out of 5 in upper and lower extremities bilaterally. ASSESSMENT AND PLAN 1. Dyspnea on exertion likely related to low hemoglobin. Type and cross and transfuse 1 unit of packed red blood cells, monitor the patient hemoglobin of the hemoglobin is stable 4 hours he can be discharged home. Echocardiogram will be repeated for evaluation of LV function. Last echocardiogram was done in 2018. 2. Hypertension and hypertensive cardiovascular disease. Continue lisinopril 2.5 mg once every day, continue metoprolol 25 mg orally twice every day. 3. Hyperlipidemia. Continue Rosuvastatin 10 mg orally daily 4. Diabetes mellitus type 2. Continue Levemir 65 units at bedtime, NovoLog scale 12 units with meals, continue patient on Jardiamce 10 mg orally once every day, discussed with the patient the need to add GLP-1 receptor agonist such as Ozempic 0.25 mg subcutaneously once every week to try to help postprandial hyperglycemia and his insulin resistance., After that we can reduce the dose of insulin. 5. paroxysmal atrial fibrillation. Continue patient on Eliquis 5 mg orally twice every day,, continue patient on metoprolol 25 mg orally twice every day. 6. History of bladder cancer under the care Dr Navarrete status post BCG treatment, last one was on was on Friday the next one is this coming Friday. 7. Chronic gout. Continue allopurinol 100 mg daily 8. GI prophylaxis. Protonix 40 mg orally once every day. 9. DVT prophylaxis. continue with bilateral knee-high YUNIEL hose, continue Eliquis 5 mg po bid 10. Observation. 11. Full code. Past Medical History Past Medical History: Atrial Flutter, Coronary Artery Disease (CAD), Cancer, Chest Pain / Angina, Diabetes Mellitus, Hearing Disorder / Deafness, Hyperlipidemia, Hypertension, Prostate Disorder, Renal Disease Additional Past Medical History / Comment(s): BPH, bladder cancer 07/01/20, hearing aids History of Any Multi-Drug Resistant Organisms: None Reported Past Surgical History: Appendectomy, Bladder Surgery, Heart Catheterization, Joint Replacement, Tonsillectomy Additional Past Surgical History / Comment(s): left knee replaced, right rotator cuff SX, COLONOSCOPY, Past Anesthesia/Blood Transfusion Reactions: No Reported Reaction Past Psychological History: Depression Smoking Status: Former smoker Past Alcohol Use History: Occasional Past Drug Use History: None Reported - Past Family History Mother Family Medical History: No Reported History Additional Family Medical History / Comment(s): Mother had history of congenital heart disease, CHF. Father Family Medical History: CVA/TIA Additional Family Medical History / Comment(s): Father contracted malaria. H istory of CVA. Brother(s) Family Medical History: No Reported History Additional Family Medical History / Comment(s): Brother has history of hea daches. Sister(s) Family Medical History: No Reported History Daughter(s) Family Medical History: No Reported History Additional Family Medical History / Comment(s): Patient has one daughter with no major medical problems. Son(s) Family Medical History: No Reported History Additional Family Medical History / Comment(s): Patient has one son with no major medical problems. Medications and Allergies Home Medications Medication Instructions Recorded Confirmed Type Insulin Glargine,Hum.rec.anlog 65 unit SQ HS 02/21/14 07/30/21 History [Lantus Solostar Pen] Rosuvastatin Calcium [Crestor] 10 mg PO DAILY 02/21/14 07/30/21 History allopurinoL [Zyloprim] 100 mg PO DAILY 02/21/14 07/30/21 History sitaGLIPtin PHOS/metFORMIN HCL 1 tab PO DAILY 02/21/14 07/30/21 History [Janumet 50-1,000 mg Tablet] Aspirin EC [Ecotrin Low Dose] 81 mg PO DAILY 08/02/15 07/30/21 History lisinopriL [Zestril] 2.5 mg PO DAILY tab 12/07/17 07/30/21 Rx Insulin Lispro [humaLOG Kwikpen] 10 unit SQ AC-TID 10/04/20 07/30/21 History Apixaban [Eliquis] 5 mg PO BID 11/13/20 07/30/21 History Empagliflozin [Jardiance] 10 mg PO DAILY 07/30/21 07/30/21 History Tamsulosin [Flomax] 0.4 mg PO DAILY 07/30/21 07/30/21 History Allergies Allergy/AdvReac Type Severity Reaction Status Date / Time No Known Allergies Allergy Verified 07/30/21 07:34 Physical Exam Vitals: Vital Signs Temp Pulse Resp BP Pulse Ox 07/30/21 06:50 75 18 104/58 97 07/30/21 05:38 68 07/30/21 05:30 98.2 F 20 07/30/21 05:05 78 16 104/58 98 Intake and Output 07/29/21 07/30/21 07/30/21 22:59 06:59 14:59 Other: Weight 103.419 kg Results CBC & Chem 7: 07/30/21 05:23 07/30/21 05:23 Labs: Abnormal Lab Results - Last 24 Hours (Table) 07/30/21 07/30/21 07/30/21 Range/Units 05:23 05:23 05:23 RBC 3.52 L (4.30-5.90) m/uL Hgb 7.1 L D (13.0-17.5) gm/dL Hct 24.8 L (39.0-53.0) % MCV 70.5 L (80.0-100.0) fL MCH 20.0 L (25.0-35.0) pg MCHC 28.4 L (31.0-37.0) g/dL RDW 17.2 H (11.5-15.5) % Plt Count 130 L (150-450) k/uL Chloride 109 H (98-107) mmol/L Carbon Dioxide 19 L (22-30) mmol/L BUN 33 H (9-20) mg/dL Glucose 224 H (74-99) mg/dL Plasma Lactic Acid Jamar 2.2 H* (0.7-2.0) mmol/L Calcium 8.3 L (8.4-10.2) mg/dL Total Protein 6.0 L (6.3-8.2) g/dL Crossmatch 07/30/21 Range/Units 06:45 RBC (4.30-5.90) m/uL Hgb (13.0-17.5) gm/dL Hct (39.0-53.0) % MCV (80.0-100.0) fL MCH (25.0-35.0) pg MCHC (31.0-37.0) g/dL RDW (11.5-15.5) % Plt Count (150-450) k/uL Chloride (98-107) mmol/L Carbon Dioxide (22-30) mmol/L BUN (9-20) mg/dL Glucose (74-99) mg/dL Plasma Lactic Acid Jamar (0.7-2.0) mmol/L Calcium (8.4-10.2) mg/dL Total Protein (6.3-8.2) g/dL Crossmatch See Detail
[2021-07-30] MEDS ORDERED: FUROSEMIDE 10 MG/ML 2 ML VIAL IV ONE (09:45)
--- NOTE | 2021-07-30 10:16 | CONS ---
CONSULTATION CHIEF COMPLAINT: Shortness of breath. This is an 86-year-old gentleman with history of falls, coronary artery disease, atrial fibrillation, status post cardioversion, hypertension, diabetes and dyslipidemia who presented to hospital with shortness of breath of several weeks' duration. He has been getting progressively more short of breath and developed leg edema. He is in normal sinus rhythm and had prior normal LV systolic function. On this admission, he was found to have a hemoglobin of 7.1. His baseline hemoglobin from a month ago was around 10.4. The patient actually has been gradually dropping his hemoglobin; in December of last year his hemoglobin was 13.1. Symptoms could be related to the anemia. His troponin is negative and BNP is normal. Patient's clinical presentation is probably related to the anemia, and he also has a component of diastolic heart failure. There is no evidence of myocardial ischemia and patient is not in atrial fibrillation. Past medical history is significant for coronary artery disease. Patient had a cardiac catheterization in 2018 that revealed heavily calcified coronaries and a significant lesion in the circumflex coronary artery that could not be stented, and he is being managed medically atrial fibrillation, for which he underwent cardioversion. History is also significant for hypertension, diabetes, dyslipidemia. MEDICATIONS: Medications at home include Janumet, Zestril, Zyloprim, Flomax, Crestor, insulin, Jardiance, aspirin and Eliquis. ALLERGIES: NO KNOWN DRUG ALLERGIES. FAMILY HISTORY: Negative for premature coronary artery disease. SOCIAL HISTORY: Negative for current smoking, EtOH abuse or drug abuse. REVIEW OF SYSTEMS: HEENT is unremarkable. CARDIAC: As described above. RESPIRATORY: As described above. GI: Negative. GENITOURINARY: Negative. ALLERGY/IMMUNOLOGY: Negative. SKIN: Negative. MUSCULOSKELETAL: Significant for arthritis. PSYCHOSOCIAL: Negative. DERMATOLOGY: Negative. CONSTITUTIONAL: Negative. ONCOLOGICAL: Negative. SKATE HOP: Negative. Rest of the system review is not relevant. PHYSICAL EXAMINATION: Afebrile. Heart rate is 75 beats per minute. Blood pressure is 104/58, respiratory rate 18. Oxygen saturation is 97% on room air. There is no jugular venous distention. Carotid upstroke is normal. There is no bruit. Chest exam reveals good air entry bilaterally. Heart exam reveals first and second heart sounds. No gallop. No murmur. No rub. Abdomen is soft, nontender. Examination of extremities reveals bilateral 1+ pitting edema. LAB: Potassium . Creatinine is 1. AST and ALT are within normal limits. BNP is normal. Troponin is negative. EKG is consistent with ischemia. Hemoglobin is low. ASSESSMENT: 1. Shortness of breath, probably multifactorial in origin, including anemia with a hemoglobin of 7.1, and acute-onset diastolic heart failure. 2. Coronary artery disease, status post unsuccessful angioplasty of circumflex coronary artery. 3. Paroxysmal atrial fibrillation. 4. Hypertension. 5. Dyslipidemia. PLAN: I will treat the patient with IV Lasix. Continue the current medications, including Eliquis and aspirin. If patient's stool guaiac comes back positive, please go ahead and hold both of them. Continue the VERONICA inhibitor. I will obtain a 2D echo to document his LV function. MMODL / IJN: [id number] /
[2021-07-30] MEDS: allopurinoL 100 MG TAB PO SCH (10:22)
[2021-07-30] MEDS: APIXABAN 5 MG TAB PO SCH ×2 (10:22→21:16)
[2021-07-30] MEDS: TAMSULOSIN 0.4 MG CAP.ER.24H PO SCH (10:22)
[2021-07-30] MEDS: ASPIRIN 81 MG PO SCH (10:22)
[2021-07-30] MEDS: LINAGLIPTIN 5 MG TABLET PO SCH (10:23)
[2021-07-30] MEDS: metFORMIN 500 MG TAB PO SCH (10:23)
[2021-07-30] MEDS: ATORVASTATIN 20 MG TAB PO SCH (10:23)
[2021-07-30] MEDS ORDERED: FUROSEMIDE 10 MG/ML 2 ML VIAL IV SCH (11:30)
[2021-07-30 11:57] LABS: Glucose,Whole Blood 289 mg/dL (75-99)
[2021-07-30] MEDS: NON FORMULARY DRUG (Empagliflozin [Jardiance] 10 MG Tablet) PO SCH (12:04)
--- NOTE | 2021-07-30 14:35 | CA ---
Transthoracic Echo Report Name: Nirmal Mesa Age: 86 Gender: M : 1935 Exam Date: 07/30/2021 12:47 Exam Location: [facility] Ht (in): 60 Wt (lb): 228 Ordering Physician: Hallie Garduno Attending/Referring Phys: Motion Picture Photographer Maribell Lee RDCS Procedure CPT: Indications: sob Cardiac Hx: Technical Quality: Fair Contrast 1: Total Dose (mL): Contrast 2: N/A Total Dose (mL): MEASUREMENTS (Male / Female) Normal Values 2D ECHO LV Diastolic Diameter PLAX 4.4 cm 4.2 - 5.9 / 3.9 - 5.3 cm LV Systolic Diameter PLAX 5.3 cm IVS Diastolic Thickness 1.5 cm 0.6 - 1.0 / 0.6 - 0.9 cm LVPW Diastolic Thickness 2.0 cm 0.6 - 1.0 / 0.6 - 0.9 cm LV Relative Wall Thickness 0.8 RV Internal Dim ED PLAX 3.2 cm LA Systolic Diameter LX 4.5 cm 3.0 - 4.0 / 2.7 - 3.8 cm LA Volume 82.1 cm??? 18 - 58 / 22 - 52 cm??? M-MODE Aortic Root Diameter MM 3.5 cm LA Systolic Diameter MM 4.5 cm LA Ao Ratio MM 1.3 MV E Point Septal Separation 0.7 cm AV Cusp Separation MM 2.1 cm DOPPLER MV Area PHT 3.8 cm??? Mitral E Point Velocity 75.6 cm/s Mitral A Point Velocity 81.0 cm/s Mitral E to A Ratio 0.9 MV Deceleration Time 197.4 ms MV E' Velocity 5.9 cm/s Mitral E to MV E' Ratio 12.8 TR Peak Velocity 204.1 cm/s TR Peak Gradient 16.7 mmHg Right Ventricular Systolic Press 21.7 mmHg FINDINGS Left Ventricle Left ventricular ejection fraction is estimated at 50-55% Moderately increased septal wall thickness. Right Ventricle Normal right ventricular size and function. Right ventricular systolic pressure within normal limits. Right Atrium Normal right atrial size. Left Atrium Mildly increased left atrial diameter. Severely increased left atrial volume. Mildly increased left atrial area. Mitral Valve Structurally normal mitral valve. Mild mitral regurgitation. Aortic Valve Trileaflet aortic valve. Tricuspid Valve Structurally normal tricuspid valve. Mild tricuspid regurgitation. Pulmonic Valve Structurally normal pulmonic valve. Pericardium Normal pericardium. Aorta Normal size aortic root and proximal ascending aorta. CONCLUSIONS Left ventricular systolic function is normal Mild mitral regurgitation Mild tricuspid regurgitation Previewed by: Dr. Demarco Carey MD (Electronically Signed) Final Date: 30 Jul 2021 14:34
[2021-07-30] MEDS: INSULIN ASPART (NovoLOG) 100 UNIT/ML VIAL SQ SCH ×2 (14:39→17:54)
[2021-07-30 17:02] LABS: Glucose,Whole Blood 233 mg/dL (75-99)
[2021-07-30 20:36] LABS: Glucose,Whole Blood 267 mg/dL (75-99)
[2021-07-30] MEDS ORDERED: INSULIN DETEMIR (LEVEMIR) 100 UNIT/ML SYR SQ SCH (21:00)
[2021-07-31] MEDS: SODIUM CHLORIDE 0.9% 1,000 ML IV SCH (05:13)
[2021-07-31 07:41] LABS: Glucose,Whole Blood 136 mg/dL (75-99)
[2021-07-31] MEDS: ATORVASTATIN 20 MG TAB PO SCH (08:13)
[2021-07-31] MEDS: ASPIRIN 81 MG PO SCH (08:13)
[2021-07-31] MEDS: INSULIN ASPART (NovoLOG) 100 UNIT/ML VIAL SQ SCH ×2 (08:13→13:31)
[2021-07-31] MEDS: TAMSULOSIN 0.4 MG CAP.ER.24H PO SCH (08:14)
[2021-07-31] MEDS: APIXABAN 5 MG TAB PO SCH (08:14)
[2021-07-31] MEDS: LINAGLIPTIN 5 MG TABLET PO SCH (08:14)
[2021-07-31] MEDS: allopurinoL 100 MG TAB PO SCH (08:14)
[2021-07-31] MEDS: metFORMIN 500 MG TAB PO SCH (08:14)
[2021-07-31] MEDS: NON FORMULARY DRUG (Empagliflozin [Jardiance] 10 MG Tablet) PO SCH (08:16)
[2021-07-31 09:20] VITALS: BP 116/63; PULSE 78; RESP 16; TEMP 97.3
[2021-07-31 10:43] LABS: Basophils # (A) 0.03 X 10*3/uL (0.00-0.10); Basophils % (A) 0.6 %; Eosinophils # (A) 0.27 X 10*3/uL (0.04-0.35); Eosinophils % (A) 5.6 %; HCT 30.5 % (39.6-50.0); HGB 8.4 g/dL (13.0-17.0); Immature Grans, Automated 0.2 %; Lymphocytes # (A) 1.13 X 10*3/uL (0.90-5.00); Lymphocytes % (A) 23.4 %; MCH 19.9 pg (27.0-32.0); MCHC 27.5 g/dL (32.0-37.0); MCV 72.1 fL (80.0-97.0); Mean Platelet Volume 10.6 fL (9.5-12.2); Monocytes # (A) 0.42 X 10*3/uL (0.20-1.00); Monocytes % (A) 8.7 %; NRBC Per 100 WBC 0 /100 WBCS (0.0-0.0); Neutrophils # (A) 2.96 X 10*3/uL (1.80-7.70); Neutrophils % (A) 61.5 %; Platelet Count 150 X 10*3/uL (140-440); RBC 4.23 X 10*6/uL (4.40-5.60); RDW 19.4 % (11.5-14.5); WBC 4.82 X 10*3/uL (4.50-10.00)
[2021-07-31 10:56] LABS: African American GFR (CKD) 79.7 (60.0-200.0); Albumin 4.2 g/dL (3.8-4.9); Albumin/Globulin Ratio 1.83 (1.60-3.17); Anion Gap 10.6 mmol/L (10.00-18.00); Calcium 9.3 mg/dL (8.7-10.3); Carbon Dioxide 21.4 mmol/L (20.0-27.5); Globulin 2.3 g/dL (1.6-3.3); Non-African American GFR(CKD) 68.8 (60.0-200.0); Phosphorus 2.9 mg/dL (2.4-5.1); Potassium 4.5 mmol/L (3.5-5.5); Total Bilirubin 0.7 mg/dL (0.30-1.20); Total Protein 6.5 g/dL (6.2-8.2)
--- NOTE | 2021-07-31 11:33 | P.DS ---
Providers Date of admission: 07/30/21 06:26 Expected date of discharge: 07/31/21 Attending physician: Niko Abraham Consults: 07/30/21 06:27 Consult Physician Routine Consulting Provider: Betsey Luna Consult Reason/Comments: sob Do you want consulting provider notified?: Yes Primary care physician: Niko Abraham Hospital Course: HISTORY OF PRESENT ILLNESS This is an 86-year-old male patient of mine with past medical history of coronary artery disease, hypertension, hyperlipidemia, diabetes mellitus type 2, generalized anxiety disorder, bladder cancer under the care of Dr. Navarrete, chronic gout. Patient states that he was seen by Dr. Navarrete in his office last Friday Patient is undergoing BCG last with installation in the bladder for 2 hours and after that patient will void he was supposed to return to the office next Friday for another treatment however the patient became quite weak with generalized weakness and increased swelling in both lower extremities associated with increased dyspnea on exertion, so he ended up coming to the emergency department at [facility] yesterday and he was found to have a hemoglobin of 7 central sequelae was admitted to the hospital for blood transfusion and evaluated the patient EKG did not show evidence of acute ST-T wave changes, his laboratory evaluation otherwise were within normal. 07/31: Repeat hemoglobin today is 8.4. Otherwise laboratory studies unremarkable. Patient denies any new complaints. Cardiology has recommended continuing eliquis, discontinue aspirin. Patient will be discharged home today in stable condition. DISCHARGE DIAGNOSES 1. Dyspnea on exertion likely related to low hemoglobin status post transfusion of 1 unit of packed RBCs. 2. Hypertension and hypertensive cardiovascular disease. 3. Hyperlipidemia. 4. Diabetes mellitus type 2. 5. Paroxysmal atrial fibrillation. 6. History of bladder cancer under the care Dr Navarrete status post BCG treatment 7. Chronic gout. DISCHARGE PLAN Home Greater than 35 minutes was utilized and coordinating patient's discharge. Impression and plan of care have been directed as dictated by the signing physician. Anamaria Black nurse practitioner acting as scribe for signing physician. Patient Condition at Discharge: Good Plan - Discharge Summary New Discharge Prescriptions: New Ferrous Sulfate [Iron (65 MG Elemental)] 325 mg PO BID-W/MEALS #60 tab Semaglutide [Ozempic] 0.25 mg SQ Q7D #4 pen Potassium Chloride ER [K-Dur 10] 10 meq PO DAILY #30 tab Furosemide [Lasix] 20 mg PO DAILY #30 tab Continue sitaGLIPtin PHOS/metFORMIN HCL [Janumet 50-1,000 mg Tablet] 1 tab PO DAILY Rosuvastatin Calcium [Crestor] 10 mg PO DAILY allopurinoL [Zyloprim] 100 mg PO DAILY Insulin Glargine,Hum.rec.anlog [Lantus Solostar Pen] 65 unit SQ HS lisinopriL [Zestril] 2.5 mg PO DAILY tab Apixaban [Eliquis] 5 mg PO BID Tamsulosin [Flomax] 0.4 mg PO DAILY Empagliflozin [Jardiance] 10 mg PO DAILY Insulin Lispro [humaLOG Kwikpen] 10 unit SQ AC-TID Discontinued Aspirin EC [Ecotrin Low Dose] 81 mg PO DAILY Discharge Medication List Insulin Glargine,Hum.rec.anlog [Lantus Solostar Pen] 65 unit SQ HS 02/21/14 [History] Rosuvastatin Calcium [Crestor] 10 mg PO DAILY 02/21/14 [History] allopurinoL [Zyloprim] 100 mg PO DAILY 02/21/14 [History] sitaGLIPtin PHOS/metFORMIN HCL [Janumet 50-1,000 mg Tablet] 1 tab PO DAILY 02/21/14 [History] lisinopriL [Zestril] 2.5 mg PO DAILY tab 12/07/17 [Rx] Insulin Lispro [humaLOG Kwikpen] 10 unit SQ AC-TID 10/04/20 [History] Apixaban [Eliquis] 5 mg PO BID 11/13/20 [History] Empagliflozin [Jardiance] 10 mg PO DAILY 07/30/21 [History] Tamsulosin [Flomax] 0.4 mg PO DAILY 07/30/21 [History] Ferrous Sulfate [Iron (65 MG Elemental)] 325 mg PO BID-W/MEALS #60 tab 07/31/21 [Rx] Furosemide [Lasix] 20 mg PO DAILY #30 tab 07/31/21 [Rx] Potassium Chloride ER [K-Dur 10] 10 meq PO DAILY #30 tab 07/31/21 [Rx] Semaglutide [Ozempic] 0.25 mg SQ Q7D #4 pen 07/31/21 [Rx] Follow up Appointment(s)/Referral(s): Niko Abraham MD [Primary Care Provider] - 1 Week Discharge Disposition: HOME SELF-CARE
--- NOTE | 2021-07-31 11:50 | P.PN ---
Subjective Progress Note Date: 07/31/21 HISTORY OF PRESENT ILLNESS: This is an 86-year-old male with a history of coronary artery disease, atrial fibrillation, hypertension, hyperlipidemia, and diabetes. The patient is adm itted to the hospital secondary to anemia and lower extremity edema. The patients BNP was within normal limits. He received IV lasix which has since been discontinued. He denies a history of CHF. Patient received 1 unit RBC. Hemoglobin is 8.4, up from 7.1. The patient denies any chest pain or pressure. He reports his shortness of breath has resolved. He reports improvement in his lower summary edema. Echocardiogram was completed revealing ejection fraction 50-55%. PHYSICAL EXAM: VITAL SIGNS: Reviewed. GENERAL: Well-developed in no acute distress. NECK: Supple. No JVD or thyromegaly LUNGS: Respirations even and unlabored. Lungs essentially clear to auscultation bilaterally. HEART: Regular rate and rhythm. S1 and S2 heard. EXTREMITIES: Normal range of motion. No clubbing or cyanosis. Peripheral pulses intact. 1+ bilateral lower extremity edema ASSESSMENT: Shortness of breath Anemia, etiology unclear Paroxysmal atrial fibrillation Coronary artery disease Hypertension Hyperlipidemia Diabetes PLAN: Continue Eliquis. Discontinue aspirin. Begin iron supplementation. Check Ferritin. Begin Protonix 40mg daily No need for diuretics on an outpatient basis SOB appears mainly related to symptomatic anemia. Stop Aspirin and may consider holding Eliquis if continued anemia. Has been receiving some chemo for prostate cancer however denies any recent. Admits to previous hematuria however recently has not had any. OK for DC. Nurse practitioner note has been reviewed by physician. Signing provider agrees with the documented findings, assessment, and plan of care. Objective - Vital Signs Vital signs: Vital Signs Temp 97.3 F L 07/31/21 07:00 Pulse 78 07/31/21 07:00 Resp 16 07/31/21 07:00 BP 116/63 07/31/21 07:00 Pulse Ox 96 07/31/21 07:00 FiO2 Intake & Output 07/30/21 07/31/21 07/31/21 18:59 06:59 18:59 Intake Total 546 Balance 546 Intake: Oral 236 Blood Product 310 Rc As-1 Unit 310 [id number] Other: Voiding Method Toilet # Voids 2 2 - Labs CBC & Chem 7: 07/31/21 07:51 07/31/21 07:51 Labs: Abnormal Lab Results - Last 24 Hours (Table) 07/30/21 07/30/21 07/30/21 Range/Units 06:45 11:55 16:47 RBC (4.40-5.60) X 10*6/uL Hgb (13.0-17.0) g/dL Hct (39.6-50.0) % MCV (80.0-97.0) fL MCH (27.0-32.0) pg MCHC (32.0-37.0) g/dL RDW (11.5-14.5) % Chloride (96-109) mmol/L BUN/Creatinine Ratio (12.00-20.00) Ratio Glucose (70-110) mg/dL POC Glucose (mg/dL) 289 H (75-99) mg/dL Plasma Lactic Acid Jamar 2.4 H* (0.7-2.0) mmol/L Crossmatch See Detail 07/30/21 07/30/21 07/30/21 Range/Units 17:00 19:57 20:35 RBC (4.40-5.60) X 10*6/uL Hgb (13.0-17.0) g/dL Hct (39.6-50.0) % MCV (80.0-97.0) fL MCH (27.0-32.0) pg MCHC (32.0-37.0) g/dL RDW (11.5-14.5) % Chloride (96-109) mmol/L BUN/Creatinine Ratio (12.00-20.00) Ratio Glucose (70-110) mg/dL POC Glucose (mg/dL) 233 H 267 H (75-99) mg/dL Plasma Lactic Acid Jamar 2.4 H* (0.7-2.0) mmol/L Crossmatch 07/31/21 07/31/21 07/31/21 Range/Units 07:38 07:51 07:51 RBC 4.23 L (4.40-5.60) X 10*6/uL Hgb 8.4 L (13.0-17.0) g/dL Hct 30.5 L (39.6-50.0) % MCV 72.1 L (80.0-97.0) fL MCH 19.9 L (27.0-32.0) pg MCHC 27.5 L (32.0-37.0) g/dL RDW 19.4 H (11.5-14.5) % Chloride 110 H (96-109) mmol/L BUN/Creatinine Ratio 26.00 H (12.00-20.00) Ratio Glucose 124 H (70-110) mg/dL POC Glucose (mg/dL) 136 H (75-99) mg/dL Plasma Lactic Acid Jamar (0.7-2.0) mmol/L Crossmatch
[2021-07-31 12:11] LABS: Glucose,Whole Blood 242 mg/dL (75-99)
[2021-07-31] MEDS ORDERED: FERROUS SULFATE 325 MG TAB PO SCH (17:30)
[2021-08-01] MEDS ORDERED: PANTOPRAZOLE 40 MG TABLET PO SCH (07:30)
== END 2021-07-31 14:30 | disposition home or self-care (01) ==
LOC: EC 04:36 → 6NMEDSUR 06:26
PROVIDERS: ADMIT Internal Medicine; ATTEND Internal Medicine
DX: R06.09 Other forms of dyspnea (principal); D64.9 Anemia, unspecified; I11.0 Hypertensive heart disease with heart failure; I50.30 Unspecified diastolic (congestive) heart failure; E78.5 Hyperlipidemia, unspecified; E11.9 Type 2 diabetes mellitus without complications; I48.0 Paroxysmal atrial fibrillation; I48.92 Unspecified atrial flutter; E88.81 Metabolic syndrome and other insulin resistance; N40.0 Benign prostatic hyperplasia without lower urinary tract symptoms; I25.10 Atherosclerotic heart disease of native coronary artery without angina pectoris; M1A.9XX0 Chronic gout, unspecified, without tophus (tophi); F32.A Depression, unspecified; F41.1 Generalized anxiety disorder; H91.90 Unspecified hearing loss, unspecified ear; Z79.899 Other long term (current) drug therapy; Z79.811 Long term (current) use of aromatase inhibitors; Z79.84 Long term (current) use of oral hypoglycemic drugs; Z79.82 Long term (current) use of aspirin; Z79.4 Long term (current) use of insulin; Z79.01 Long term (current) use of anticoagulants; Z85.51 Personal history of malignant neoplasm of bladder; Z92.21 Personal history of antineoplastic chemotherapy; Z87.891 Personal history of nicotine dependence; Z91.81 History of falling; Z96.652 Presence of left artificial knee joint; Z82.3 Family history of stroke; Z82.49 Family history of ischemic heart disease and other diseases of the circulatory system; Z83.1 Family history of other infectious and parasitic diseases
CPT/HCPCS: 99285; 96374; 36415; 94640; 93005; 93306; 86900; 86901; 85379; 83880; 80053 ×2; 82728; 83605; 83735 ×2; 84100; 84484; 85025 ×2; 85610; 85730; 86850; 86920; 71046; G0378 ×2; P9016; J1940; 36430

== ENCOUNTER 2021-08-02 15:17 | Emergency (ER) | payer MEDICARE ==
[2021-08-02 15:36] VITALS: RESP 18; TEMP 98
--- NOTE | 2021-08-02 16:20 | ED ---
General Adult HPI - General Chief complaint: Urogenital Stated complaint: Recheck Time Seen by Provider: 08/02/21 15:40 Source: patient, RN notes reviewed, old records reviewed Mode of arrival: ambulatory Limitations: no limitations - History of Present Illness Initial comments: This is an 86-year-old male who presents emergency Department complaining that he has had hematuria since this morning. Patient states he was admitted to the hospital about a week ago for anemia and was given a transfusion of blood. Patient states he is on eliquis for his heart. Patient states he also just recently had a procedure done with urology with the injected some medication into his bladder that occurred yesterday. Patient states this morning he woke up and had blood in his urine and continued later today so decided come the emergency department. Patient states he is not week he's denies shortness of breath or difficulty breathing. Patient denies any chest pain. Patient denies any palpitations. Patient denies any abdominal pain or back pain. Patient denies any recent fever chills. - Related Data Home Medications Medication Instructions Recorded Confirmed Insulin Glargine,Hum.rec.anlog 65 unit SQ HS 02/21/14 07/30/21 [Lantus Solostar Pen] Rosuvastatin Calcium [Crestor] 10 mg PO DAILY 02/21/14 07/30/21 allopurinoL [Zyloprim] 100 mg PO DAILY 02/21/14 07/30/21 sitaGLIPtin PHOS/metFORMIN HCL 1 tab PO DAILY 02/21/14 07/30/21 [Janumet 50-1,000 mg Tablet] Insulin Lispro [humaLOG Kwikpen] 10 unit SQ AC-TID 10/04/20 07/30/21 Apixaban [Eliquis] 5 mg PO BID 11/13/20 07/30/21 Empagliflozin [Jardiance] 10 mg PO DAILY 07/30/21 07/30/21 Tamsulosin [Flomax] 0.4 mg PO DAILY 07/30/21 07/30/21 Previous Rx's Medication Instructions Recorded lisinopriL [Zestril] 2.5 mg PO DAILY tab 12/07/17 Ferrous Sulfate [Iron (65 MG 325 mg PO BID-W/MEALS #60 tab 07/31/21 Elemental)] Furosemide [Lasix] 20 mg PO DAILY #30 tab 07/31/21 Potassium Chloride ER [K-Dur 10] 10 meq PO DAILY #30 tab 07/31/21 Semaglutide [Ozempic] 0.25 mg SQ Q7D #4 pen 07/31/21 Allergies Allergy/AdvReac Type Severity Reaction Status Date / Time No Known Allergies Allergy Verified 07/30/21 07:34 Review of Systems ROS Statement: Those systems with pertinent positive or pertinent negative responses have been documented in the HPI. ROS Other: All systems not noted in ROS Statement are negative. Past Medical History Past Medical History: Atrial Flutter, Coronary Artery Disease (CAD), Cancer, Chest Pain / Angina, Diabetes Mellitus, Hearing Disorder / Deafness, Hyperlipidemia, Hypertension, Prostate Disorder, Renal Disease Additional Past Medical History / Comment(s): BPH, bladder cancer 07/01/20, hearing aids History of Any Multi-Drug Resistant Organisms: None Reported Past Surgical History: Appendectomy, Bladder Surgery, Heart Catheterization, Joint Replacement, Tonsillectomy Additional Past Surgical History / Comment(s): left knee replaced, right rotator cuff SX, COLONOSCOPY, Past Anesthesia/Blood Transfusion Reactions: No Reported Reaction Past Psychological History: Depression Smoking Status: Former smoker Past Alcohol Use History: Occasional Past Drug Use History: None Reported - Past Family History Mother Additional Family Medical History / Comment(s): Mother had history of congenital heart disease, CHF. Father Additional Family Medical History / Comment(s): Father contracted malaria. History of CVA. Brother(s) Family Medical History: No Reported History Additional Family Medical History / Comment(s): Brother has history of headaches. Sister(s) Family Medical History: No Reported History Daughter(s) Family Medical History: No Reported History Additional Family Medical History / Comment(s): Patient has one daughter with no major medical problems. Son(s) Family Medical History: No Reported History Additional Family Medical History / Comment(s): Patient has one son with no major medical problems. General Exam - General Exam Comments Initial Comments: GENERAL: Patient is well-developed and well-nourished. Patient is nontoxic and well- hydrated and is in no acute distress. ENT: Neck is soft and supple. No significant lymphadenopathy is noted. Oropharynx is clear. Moist mucous membranes. Neck has full range of motion without eliciting any pain. There is no thyroid enlargement and no masses were felt. EYES: The sclera were anicteric and conjunctiva were pink and moist. Extraocular movements were intact and pupils were equal round and reactive to light. Eyelids were unremarkable. PULMONARY: Unlabored respirations. Good breath sounds bilaterally. No audible rales rhonchi or wheezing was noted. CARDIOVASCULAR: There is a regular rate and rhythm without any murmurs gallops or rubs. ABDOMEN: Soft and nontender with normal bowel sounds. SKIN: Skin is clear with no lesions or rashes and otherwise unremarkable. NEUROLOGIC: Patient is alert and oriented x3. Cranial nerves II through XII are grossly intact. Motor and sensory are also intact. Normal speech, volume and content. Symmetrical smile. MUSCULOSKELETAL: Normal extremities with adequate strength and full range of motion. PSYCHIATRIC: Normal psychiatric evaluation. Limitations: no limitations Course Vital Signs 08/02/21 15:34 Temperature 98.0 F Pulse Rate 79 Respiratory 18 Rate Blood Pressure 143/60 O2 Sat by Pulse 98 Oximetry Medical Decision Making - Medical Decision Making I spoke with Dr. Ibarra about the patient's results and he agreed the patient could follow-up with them in the office. - Lab Data Result diagrams: 08/02/21 16:44 Lab Results 08/02/21 08/02/21 Range/Units 16:08 16:44 WBC 3.6 L (3.8-10.6) k/uL RBC 4.00 L (4.30-5.90) m/uL Hgb 8.4 L (13.0-17.5) gm/dL Hct 29.3 L (39.0-53.0) % MCV 73.2 L (80.0-100.0) fL MCH 21.0 L (25.0-35.0) pg MCHC 28.7 L (31.0-37.0) g/dL RDW 18.7 H (11.5-15.5) % Plt Count 129 L (150-450) k/uL MPV 7.8 Neutrophils % 57 % Lymphocytes % 26 % Monocytes % 6 % Eosinophils % 6 % Basophils % 1 % Neutrophils # 2.1 (1.3-7.7) k/uL Lymphocytes # 1.0 (1.0-4.8) k/uL Monocytes # 0.2 (0-1.0) k/uL Eosinophils # 0.2 (0-0.7) k/uL Basophils # 0.0 (0-0.2) k/uL Hypochromasia Marked Poikilocytosis Slight Anisocytosis Slight Microcytosis Moderate Urine Color Light Red Urine Appearance Cloudy (Clear) Urine pH 5.5 (5.0-8.0) Ur Specific [place] 1.013 (1.001-1.035) Urine Protein 1+ H (Negative) Urine Glucose (UA) 4+ H (Negative) Urine Ketones Negative (Negative) Urine Blood Large H (Negative) Urine Nitrite Negative (Negative) Urine Bilirubin Negative (Negative) Urine Urobilinogen <2.0 (<2.0) mg/dL Ur Leukocyte Esterase Small H (Negative) Urine RBC >182 H (0-5) /hpf Urine WBC 5 (0-5) /hpf Ur Squamous Epith Cells 2 (0-4) /hpf Disposition Clinical Impression: Hematuria Disposition: HOME SELF-CARE Condition: Good Instructions (If sedation given, give patient instructions): Hematuria (ED) Is patient prescribed a controlled substance at d/c from ED?: No Referrals: Niko Abraham MD [Primary Care Provider] - 1-2 days Time of Disposition: 17:34
[2021-08-02 16:41] LABS: Appearance,Urine Cloudy (Clear); Bilirubin,Urine Negative (Negative); Blood,Urine Large (Negative); Color,Urine Light Red; Glucose,Urine (UA) 4+ (Negative); Ketones,Urine Negative (Negative); Leukocyte Esterase,Urine Small (Negative); Nitrite,Urine Negative (Negative); PH, Urine 5.5 (5.0-8.0); Protein,Urine 1+ (Negative); RBC,Urine >182 /hpf (0-5); Specific Gravity,Urine 1.013 (1.001-1.035); Squamous Epithelial Cell,Urine 2 /hpf (0-4); Urobilinogen,Urine <2.0 mg/dL (<2.0); WBC,Urine 5 /hpf (0-5)
[2021-08-02 17:04] LABS: Anisocytosis Slight; Basophils % (A) 1 %; Eosinophils # (A) 0.2 k/uL (0-0.7); Eosinophils % (A) 6 %; HCT 29.3 % (39.0-53.0); HGB 8.4 gm/dL (13.0-17.5); Hypochromasia Marked; Lymphocytes % (A) 26 %; MCHC 28.7 g/dL (31.0-37.0); MCV 73.2 fL (80.0-100.0); Mean Platelet Volume 7.8; Microcytosis Moderate; Monocytes # (A) 0.2 k/uL (0-1.0); Monocytes % (A) 6 %; Neutrophils # (A) 2.1 k/uL (1.3-7.7); Neutrophils % (A) 57 %; Platelet Count 129 k/uL (150-450); Poikilocytosis Slight; RDW 18.7 % (11.5-15.5); WBC 3.6 k/uL (3.8-10.6)
[2021-08-02 17:56] VITALS: BP 136/80; PULSE 78
== END 2021-08-02 17:57 | disposition home or self-care (01) ==
LOC: EC 15:17
DX: R31.9 Hematuria, unspecified (principal); E11.9 Type 2 diabetes mellitus without complications; I10 Essential (primary) hypertension; E78.5 Hyperlipidemia, unspecified; F17.200 Nicotine dependence, unspecified, uncomplicated
CPT/HCPCS: 36415; 81001; 85025

== ENCOUNTER 2022-08-31 04:11 | Emergency (ER) | payer MEDICARE ==
[2022-08-31 04:15] VITALS: TEMP 97.5
--- NOTE | 2022-08-31 04:25 | ED ---
Chest Pain HPI - General Chief Complaint: Chest Pain Stated Complaint: Chest pain Time Seen by Provider: 08/31/22 04:18 Source: patient, RN notes reviewed, old records reviewed Mode of arrival: ambulatory Limitations: no limitations - History of Present Illness Initial Comments: This is an 87-year-old male to the emergency department for evaluation of chest pain chest pain since yesterday persisting into today. Patient has persistent chest pain here in the ER although significantly improved patient states his pain feels exactly currently resolved. No sweating no shortness of breath other complaints recent fever cough congestion MD Complaint: chest pain -: days(s) Onset: during rest, during exertion, awoke with symptoms Pain Location: epigastric Pain Radiation: none Severity: moderate Quality: tightness, heaviness Consistency: constant, intermittent Improves With: nothing Worsens With: nothing Other Symptoms: palpitations Treatments Prior to Arrival: none - Related Data Home Medications Medication Instructions Recorded Confirmed Insulin Glargine,Hum.rec.anlog 65 unit SQ HS 02/21/14 08/31/22 [Lantus Solostar Pen] Rosuvastatin Calcium [Crestor] 10 mg PO DAILY 02/21/14 08/31/22 allopurinoL [Zyloprim] 100 mg PO DAILY 02/21/14 08/31/22 Insulin Lispro [humaLOG Kwikpen] 10 unit SQ AC-TID 10/04/20 08/31/22 Apixaban [Eliquis] 5 mg PO BID 11/13/20 08/31/22 Tamsulosin [Flomax] 0.4 mg PO BID 07/30/21 08/31/22 Sildenafil Citrate 100 mg PO DAILY PRN 08/31/22 08/31/22 Previous Rx's Medication Instructions Recorded lisinopriL [Zestril] 2.5 mg PO DAILY tab 12/07/17 Allergies Allergy/AdvReac Type Severity Reaction Status Date / Time No Known Allergies Allergy Verified 08/31/22 20:39 Review of Systems ROS Statement: Those systems with pertinent positive or pertinent negative responses have been documented in the HPI. ROS Other: All systems not noted in ROS Statement are negative. EKG Findings - EKG Comments: EKG Findings:: EKG is sinus 60. She 30 QRS 100 QTc 4:30 - EKG Results: EKG: interpreted by [facility] Past Medical History Past Medical History: Atrial Flutter, Coronary Artery Disease (CAD), Cancer, Chest Pain / Angina, Diabetes Mellitus, Hearing Disorder / Deafness, Hyperlipidemia, Hypertension, Prostate Disorder, Renal Disease Additional Past Medical History / Comment(s): BPH, bladder cancer 07/01/20, hearing aids History of Any Multi-Drug Resistant Organisms: None Reported Past Surgical History: Appendectomy, Bladder Surgery, Heart Catheterization, Joint Replacement, Tonsillectomy Additional Past Surgical History / Comment(s): left knee replaced, right rotator cuff SX, COLONOSCOPY, Past Anesthesia/Blood Transfusion Reactions: No Reported Reaction Past Psychological History: Depression Smoking Status: Former smoker Past Alcohol Use History: Occasional Past Drug Use History: None Reported - Past Family History Mother Family Medical History: No Reported History Additional Family Medical History / Comment(s): Mother had history of congenital heart disease, CHF. Father Family Medical History: CVA/TIA Additional Family Medical History / Comment(s): Father contracted malaria. History of CVA. Brother(s) Family Medical History: No Reported History Additional Family Medical History / Comment(s): Brother has history of headaches. Sister(s) Family Medical History: No Reported History Daughter(s) Family Medical History: No Reported History Additional Family Medical History / Comment(s): Patient has one daughter with no major medical problems. Son(s) Family Medical History: No Reported History Additional Family Medical History / Comment(s): Patient has one son with no major medical problems. General Exam Limitations: no limitations General appearance: alert, in no apparent distress, anxious Head exam: Present: atraumatic, normocephalic, normal inspection Eye exam: Present: normal appearance, PERRL, EOMI. Absent: scleral icterus, conjunctival injection, periorbital swelling ENT exam: Present: normal exam, mucous membranes moist Neck exam: Present: normal inspection. Absent: tenderness, meningismus, lymphadenopathy Respiratory exam: Present: normal lung sounds bilaterally. Absent: respiratory distress, wheezes, rales, rhonchi, stridor Cardiovascular Exam: Present: regular rate, normal rhythm, normal heart sounds. Absent: systolic murmur, diastolic murmur, rubs, gallop, clicks GI/Abdominal exam: Present: soft, normal bowel sounds. Absent: distended, tenderness, guarding, rebound, rigid Extremities exam: Present: normal inspection, full ROM, normal capillary refill. Absent: tenderness, pedal edema, joint swelling, calf tenderness Back exam: Present: normal inspection Neurological exam: Present: alert, oriented X3, CN II-XII intact Psychiatric exam: Present: normal affect, normal mood Skin exam: Present: warm, dry, intact, normal color. Absent: rash Course Vital Signs 08/31/22 08/31/22 08/31/22 04:12 04:35 05:17 Temperature 97.5 F L Pulse Rate 63 64 Pulse Rate [ 60 Speech And Hearing Director ] Respiratory 18 18 Rate Blood Pressure 135/64 98/68 O2 Sat by Pulse 98 95 Oximetry 08/31/22 07:00 Temperature Pulse Rate 61 Pulse Rate [ Speech And Hearing Director ] Respiratory 16 Rate Blood Pressure 130/72 O2 Sat by Pulse 96 Oximetry - Reevaluation(s) Reevaluation #1: 08/31/22 04:25 Medical records reviewed Reevaluation #2: 08/31/22 06:28 Patient's chest pain has resolved Reevaluation #3: 08/31/22 06:28 Patient informed results questions answered Reevaluation #4: 08/31/22 04:25 Was pt. sent in by a medical professional or institution? @ -no Did you speak to anyone other than the patient for history? @ -no Did you review nursing and triage notes? @ -agree Were old charts reviewed? @ -yes including recent cardiac catheterization Differential Diagnosis? @ -prior EKG interpreted by me (3pts min.)? @ -yes X-rays interpreted by me (1pt min.)? @ -yes CT interpreted by me (1pt min.)? @ -no U/S interpreted by me (1pt. min.)? @ -no What testing was considered but not performed? (CT, X-rays, U/S, labs)? Why? @ -no What meds were considered but not given? Why? @ -no Did you discuss the management of the patient with other professionals? @ -no Did you reconcile home meds? @ -no Was smoking cessation discussed for >3mins.? @ -no Was critical care preformed (if so, how long)? @ -no Were there social determinants of health that impacted care today? How? (Homelessness, low income, unemployed, alcoholism, drug addiction, transportation, low edu. Level, literacy, decrease access to med. care, [facility], rehab)? @ -no Was there de-escalation of care discussed even if they declined? (Discuss DNR or withdrawal of care, Hospice)? @ -no What co-morbidities impacted this encounter? (DM, HTN, Smoking, COPD, CAD, Cancer, CVA, Hep., AIDS, mental health diagnosis, sleep apnea, morbid obesity)? @ -none Was patient admitted / discharged? @ -87 male for chest pain no significant cause of chest pain found here in the ER patient's low risk as he does have recent cardiac catheterization. Patient can be discharged home Discharge Undiagnosed new problem with uncertain prognosis? @ -no Drug Therapy requiring intensive monitoring for toxicity (Heparin, Nitro, Insulin, Cardizem)? @ -no Were any procedures done? @ -no Diagnosis/symptom? @ -Chest pain, angina, pancreatitis Acute, or Chronic, or Acute on Chronic? @ -acute Uncomplicated (without systemic symptoms) or Complicated (systemic symptoms)? @ -complicated Side effects of treatment? @ -no Exacerbation, Progression, or Severe Exacerbation] @ -no Poses a threat to life or bodily function? @ -yes Reevaluation #5: 08/31/22 04:25 Differential Chest Pain: Stable Angina, Unstable Angina, STEMI, NSTEMI Aortic Dissection, Pneumothorax, Musculoskeletal, Esophageal Spasm GERD, Cholecystitis, Pancreatitis, Zoster, this is not meant to be an all-inclusive list. Chest Pain MDM - MDM 87 male for chest pain no significant cause of chest pain found here in the ER patient's low risk as he does have recent cardiac catheterization which was normal.., Patient is found to have severely elevated lipase significant pancreatitis. Patient refusing hospital admission secondary to having family reunion [place] this morning. Patient will be discharged home to return to ER with symptoms worsen Critical Care Time Critical Care Time: Yes Total Critical Care Time: 31 Disposition Clinical Impression: Chest pain, Coronary artery disease, Pancreatitis, Acute pancreatitis Disposition: HOME SELF-CARE Condition: Fair Instructions (If sedation given, give patient instructions): Chest Pain (ED), Pancreatitis (ED) Is patient prescribed a controlled substance at d/c from ED?: No Referrals: Nonstaff,Physician [REFERRING] - 1-2 days Time of Disposition: 06:30
[2022-08-31 04:37] LABS: Basophils % (A) 0 %; Eosinophils # (A) 0.3 k/uL (0-0.7); Eosinophils % (A) 6 %; HCT 37.9 % (39.0-53.0); HGB 12.5 gm/dL (13.0-17.5); Hypochromasia Slight; Lymphocytes # (A) 1.4 k/uL (1.0-4.8); Lymphocytes % (A) 30 %; MCH 28.3 pg (25.0-35.0); MCV 85.6 fL (80.0-100.0); Mean Platelet Volume 8.9; Monocytes # (A) 0.3 k/uL (0-1.0); Monocytes % (A) 7 %; Neutrophils # (A) 2.6 k/uL (1.3-7.7); Neutrophils % (A) 56 %; Platelet Count 85 k/uL (150-450); RBC 4.43 m/uL (4.30-5.90); RDW 14.9 % (11.5-15.5); WBC 4.6 k/uL (3.8-10.6)
[2022-08-31 04:46] LABS: INR 1.1 (<1.2); Partial Thromboplastin Time 24.9 sec (22.0-30.0); Prothrombin Time 11.1 sec (9.0-12.0)
[2022-08-31 05:13] LABS: African American GFR (CKD) 90 (>60 ml/min/1.73 sqM); Albumin 3.7 g/dL (3.5-5.0); Anion Gap 6 mmol/L; Blood Urea Nitrogen 26 mg/dL (9-20); Calcium 8.8 mg/dL (8.4-10.2); Carbon Dioxide 21 mmol/L (22-30); Chloride 112 mmol/L (98-107); Glucose 174 mg/dL (74-99); Non-African American GFR(CKD) 78 (>60 ml/min/1.73 sqM); Potassium 4.2 mmol/L (3.5-5.1); Sodium 139 mmol/L (137-145); Total Bilirubin 0.5 mg/dL (0.2-1.3); Total Protein 6.4 g/dL (6.3-8.2)
[2022-08-31 05:15] LABS: ALT 22 U/L (4-49); AST 37 U/L (17-59); Alkaline Phosphatase 98 U/L (38-126); Magnesium 1.7 mg/dL (1.6-2.3)
[2022-08-31 06:40] LABS: Lipase 4929 U/L (23-300)
[2022-08-31 07:10] VITALS: BP 130/72; PULSE 61; RESP 16
--- NOTE | 2022-08-31 07:31 | XR ---
EXAMINATION TYPE: XR chest 2V DATE OF EXAM: 08/31/2022 COMPARISON: 07/30/2021 INDICATION: Chest pain TECHNIQUE: Frontal and lateral views of the chest are obtained. FINDINGS: The heart size is normal. The pulmonary vasculature is normal. Mild subsegmental atelectasis may be at the lung bases. IMPRESSION: 1. Clinical correlation for mild subsegmental atelectasis bilateral lung bases.
== END 2022-08-31 07:00 | disposition home or self-care (01) ==
LOC: EC 04:11
DX: R07.9 Chest pain, unspecified (principal); I25.10 Atherosclerotic heart disease of native coronary artery without angina pectoris; K85.90 Acute pancreatitis without necrosis or infection, unspecified; E11.9 Type 2 diabetes mellitus without complications; E78.5 Hyperlipidemia, unspecified; I10 Essential (primary) hypertension; F32.A Depression, unspecified; Z87.891 Personal history of nicotine dependence; Z79.4 Long term (current) use of insulin; Z79.01 Long term (current) use of anticoagulants; Z79.899 Other long term (current) drug therapy
CPT/HCPCS: 36415; 71046; 80053; 83690; 83735; 83880; 84484; 85025; 85610; 85730; 93005; 99291

== ENCOUNTER 2022-08-31 20:01 | Observation (INO) | payer MEDICARE ==
[2022-08-31] MEDS ORDERED: SODIUM CHLORIDE 0.9% 500 ML 500 ML IV STA (20:22)
--- NOTE | 2022-08-31 20:41 | ED ---
General Adult HPI - General Chief complaint: Chest Pain Stated complaint: chest pain Time Seen by Provider: 08/31/22 20:14 Source: patient, RN notes reviewed, old records reviewed Mode of arrival: ambulatory - History of Present Illness Initial comments: 87-year-old male who presents for evaluation of epigastric pain, lower chest pain. Patient was diagnosed with pancreatitis early this morning. Patient had asked to be discharged from the emergency department as he was feeling 100% better and had a family gathering to attend. He returns this evening with recurrent symptoms including vomiting, multiple episodes and epigastric pain. Denies diaphoresis or dyspnea. Pain is in the lower chest and epigastrium. No fever. No history of previous pancreatitis. - Related Data Home Medications Medication Instructions Recorded Confirmed Insulin Glargine,Hum.rec.anlog 65 unit SQ HS 02/21/14 08/31/22 [Lantus Solostar Pen] Rosuvastatin Calcium [Crestor] 10 mg PO DAILY 02/21/14 08/31/22 allopurinoL [Zyloprim] 100 mg PO DAILY 02/21/14 08/31/22 sitaGLIPtin PHOS/metFORMIN HCL 1 tab PO DAILY 02/21/14 08/31/22 [Janumet 50-1,000 mg Tablet] Insulin Lispro [humaLOG Kwikpen] 10 unit SQ AC-TID 10/04/20 08/31/22 Apixaban [Eliquis] 5 mg PO BID 11/13/20 08/31/22 Tamsulosin [Flomax] 0.4 mg PO BID 07/30/21 08/31/22 Semaglutide [Ozempic] 0.5 mg SQ BHAKTA 08/31/22 08/31/22 Sildenafil Citrate 100 mg PO DAILY PRN 08/31/22 08/31/22 Previous Rx's Medication Instructions Recorded lisinopriL [Zestril] 2.5 mg PO DAILY tab 12/07/17 Allergies Allergy/AdvReac Type Severity Reaction Status Date / Time No Known Allergies Allergy Verified 08/31/22 20:39 Review of Systems ROS Statement: Those systems with pertinent positive or pertinent negative responses have been documented in the HPI. ROS Other: All systems not noted in ROS Statement are negative. Past Medical History Past Medical History: Atrial Flutter, Coronary Artery Disease (CAD), Cancer, Ch est Pain / Angina, Diabetes Mellitus, Hearing Disorder / Deafness, Hyperlipidemia, Hypertension, Prostate Disorder, Renal Disease Additional Past Medical History / Comment(s): BPH, bladder cancer 07/01/20, hearing aids History of Any Multi-Drug Resistant Organisms: None Reported Past Surgical History: Appendectomy, Bladder Surgery, Heart Catheterization, Joint Replacement, Tonsillectomy Additional Past Surgical History / Comment(s): left knee replaced, right rotator cuff SX, COLONOSCOPY, Past Anesthesia/Blood Transfusion Reactions: No Reported Reaction Past Psychological History: Depression Smoking Status: Former smoker Past Alcohol Use History: Occasional Past Drug Use History: None Reported - Past Family History Mother Family Medical History: No Reported History Additional Family Medical History / Comment(s): Mother had history of congenital heart disease, CHF. Father Family Medical History: CVA/TIA Additional Family Medical History / Comment(s): Father contracted malaria. History of CVA. Brother(s) Family Medical History: No Reported History Additional Family Medical History / Comment(s): Brother has history of headaches. Sister(s) Family Medical History: No Reported History Daughter(s) Family Medical History: No Reported History Additional Family Medical History / Comment(s): Patient has one daughter with no major medical problems. Son(s) Family Medical History: No Reported History Additional Family Medical History / Comment(s): Patient has one son with no major medical problems. General Exam General appearance: alert, in no apparent distress Head exam: Present: atraumatic, normocephalic Eye exam: Present: normal appearance, PERRL ENT exam: Present: normal exam Neck exam: Present: normal inspection. Absent: tenderness, meningismus Respiratory exam: Present: normal lung sounds bilaterally. Absent: respiratory distress, wheezes Cardiovascular Exam: Present: regular rate, normal rhythm GI/Abdominal exam: Present: soft. Absent: distended, tenderness, guarding, rebound Neurological exam: Present: alert, oriented X3, CN II-XII intact. Absent: motor sensory deficit Psychiatric exam: Present: normal affect, normal mood Skin exam: Present: warm, dry, intact. Absent: cyanosis, diaphoretic Course Vital Signs 08/31/22 20:02 Temperature 97.8 F Pulse Rate 59 L Respiratory 18 Rate Blood Pressure 117/69 O2 Sat by Pulse 97 Oximetry Medical Decision Making - Medical Decision Making Was pt. sent in by a medical professional or institution (LAURO Spaulding, IMAGING CENTER MANAGER, urgent care, hospital, or snf...) When possible be specific @ -No Did you speak to anyone other than the patient for history (EMS, parent, family, police, friend...)? What history was obtained from this source @ -No Did you review nursing and triage notes (agree or disagree)? Why? @ -I reviewed and agree with nursing and triage notes Were old charts reviewed (outside hosp., previous admission, EMS record, old EKG, old radiological studies, urgent care reports/EKG's, snf records)? Report findings @ ER note from this morning Differential Diagnosis (chest pain, altered mental status, abdominal pain women, abdominal pain men, vaginal bleeding, weakness, fever, dyspnea, syncope, headache, dizziness, GI bleed, back pain, seizure, CVA, palpatations, mental health, musculoskeletal)? @ -Differential Chest Pain: Stable Angina, Unstable Angina, STEMI, NSTEMI Aortic Dissection, Pneumothorax, Musculoskeletal, Esophageal Spasm GERD, Cholecystitis, Pancreatitis, Zoster, this is not meant to be an all-inclusive list. EKG interpreted by me (3pts min.). @ -Sinus rhythm first-degree AV block, rate of 63, CA interval 239, QRS duration 95, QTC [address] segment changes. X-rays interpreted by me (1pt min.). @ -None done CT interpreted by me (1pt min.). @ CT showing mild pancreatitis U/S interpreted by me (1pt. min.). @ -None done What testing was considered but not performed or refused? (CT, X-rays, U/S, labs)? Why? @ -None What meds were considered but not given or refused? Why? @ -None Did you discuss the management of the patient with other professionals (pr ofessionals i.e. LAURO Spaulding, IMAGING CENTER MANAGER, lab, RT, psych nurse, oncology social work, customer relations representative, teacher, chief science officer, piano case maker)? Give summary @ -Dr. Abraham Was smoking cessation discussed for >3mins.? @ -No Was critical care preformed (if so, how long)? @ -No Were there social determinants of health that impacted care today? How? (Homelessness, low income, unemployed, alcoholism, drug addiction, tr ansportation, low edu. Level, literacy, decrease access to med. care, long term, rehab)? @ -No Was there de-escalation of care discussed even if they declined (Discuss DNR or withdrawal of care, Hospice)? DNR status @ -No What co-morbidities impacted this encounter? (DM, HTN, Smoking, COPD, CAD, Cancer, CVA, ARF, Chemo, Hep., AIDS, mental health diagnosis, sleep apnea, morbid obesity)? @ -[Hypertension diabetes Was patient admitted / discharged? Hospital course, mention meds given and r oute, prescriptions, significant lab abnormalities, going to OR and other pertinent info. @ -87-year-old male with recurrent epigastric pain nausea vomiting, recent diagnosis of pancreatitis. Pancreatic enzymes are still elevated but are down trending at 1300. CT shows mild pancreatitis. His liver transaminases are normal, normal bilirubin. I suspect a drug induced pancreatitis. Patient will be admitted for IV hydration and symptomatically control. Patient will be admit dwayne to internal medicine. Undiagnosed new problem with uncertain prognosis? @ -No Drug Therapy requiring intensive monitoring for toxicity (Heparin, Nitro, Insulin, Cardizem)? @ -No Were any procedures done? @ -No Diagnosis/symptom? @ Pancreatitis Acute, or Chronic, or Acute on Chronic? @ -Acute Uncomplicated (without systemic symptoms) or Complicated (systemic symptoms)? @ -[Complicated Side effects of treatment? @ -No Exacerbation, Progression, or Severe Exacerbation? @ -No Poses a threat to life or bodily function? How? (Chest pain, [place], [place], pneumonia, PE, COPD, DKA, ARF, appy, cholecystitis, CVA, Diverticulitis, Homicidal, Suicidal, threat to staff... and all critical care pts) @ -[Yes, pancreatitis - Lab Data Result diagrams: 08/31/22 20:27 08/31/22 20:27 Lab Results 08/31/22 08/31/22 08/31/22 Range/Units 20:27 20:27 20:27 WBC 5.2 (3.8-10.6) k/uL RBC 4.67 (4.30-5.90) m/uL Hgb 12.9 L (13.0-17.5) gm/dL Hct 40.5 (39.0-53.0) % MCV 86.7 (80.0-100.0) fL MCH 27.7 (25.0-35.0) pg MCHC 32.0 (31.0-37.0) g/dL RDW 14.9 (11.5-15.5) % Plt Count 89 L (150-450) k/uL MPV 9.3 Neutrophils % 54 % Lymphocytes % 32 % Monocytes % 6 % Eosinophils % 6 % Basophils % 0 % Neutrophils # 2.8 (1.3-7.7) k/uL Lymphocytes # 1.7 (1.0-4.8) k/uL Monocytes # 0.3 (0-1.0) k/uL Eosinophils # 0.3 (0-0.7) k/uL Basophils # 0.0 (0-0.2) k/uL Hypochromasia Slight PT 11.0 (9.0-12.0) sec INR 1.0 (<1.2) APTT 25.8 (22.0-30.0) sec Sodium 136 L (137-145) mmol/L Potassium 4.9 (3.5-5.1) mmol/L Chloride 107 (98-107) mmol/L Carbon Dioxide 19 L (22-30) mmol/L Anion Gap 10 mmol/L BUN 27 H (9-20) mg/dL Creatinine 0.97 (0.66-1.25) mg/dL Est GFR (CKD-EPI)AfAm 83 (>60 ml/min/1.73 sqM) Est GFR (CKD-EPI)NonAf 72 (>60 ml/min/1.73 sqM) Glucose 139 H (74-99) mg/dL Calcium 8.6 (8.4-10.2) mg/dL Magnesium 1.6 (1.6-2.3) mg/dL Total Bilirubin 0.9 (0.2-1.3) mg/dL AST 99 H (17-59) U/L ALT 38 (4-49) U/L Alkaline Phosphatase 94 (38-126) U/L Troponin I (0.000-0.034) ng/mL Total Protein 7.0 (6.3-8.2) g/dL Albumin 4.0 (3.5-5.0) g/dL Lipase 1368 H (23-300) U/L 08/31/22 Range/Units 20:27 WBC (3.8-10.6) k/uL RBC (4.30-5.90) m/uL Hgb (13.0-17.5) gm/dL Hct (39.0-53.0) % MCV (80.0-100.0) fL MCH (25.0-35.0) pg MCHC (31.0-37.0) g/dL RDW (11.5-15.5) % Plt Count (150-450) k/uL MPV Neutrophils % % Lymphocytes % % Monocytes % % Eosinophils % % Basophils % % Neutrophils # (1.3-7.7) k/uL Lymphocytes # (1.0-4.8) k/uL Monocytes # (0-1.0) k/uL Eosinophils # (0-0.7) k/uL Basophils # (0-0.2) k/uL Hypochromasia PT (9.0-12.0) sec INR (<1.2) APTT (22.0-30.0) sec Sodium (137-145) mmol/L Potassium (3.5-5.1) mmol/L Chloride (98-107) mmol/L Carbon Dioxide (22-30) mmol/L Anion Gap mmol/L BUN (9-20) mg/dL Creatinine (0.66-1.25) mg/dL Est GFR (CKD-EPI)AfAm (>60 ml/min/1.73 sqM) Est GFR (CKD-EPI)NonAf (>60 ml/min/1.73 sqM) Glucose (74-99) mg/dL Calcium (8.4-10.2) mg/dL Magnesium (1.6-2.3) mg/dL Total Bilirubin (0.2-1.3) mg/dL AST (17-59) U/L ALT (4-49) U/L Alkaline Phosphatase (38-126) U/L Troponin I <0.012 (0.000-0.034) ng/mL Total Protein (6.3-8.2) g/dL Albumin (3.5-5.0) g/dL Lipase (23-300) U/L Disposition Clinical Impression: Pancreatitis Disposition: ADMITTED IP TO THIS HOSP Condition: Stable Is patient prescribed a controlled substance at d/c from ED?: No Referrals: Niko Abraham MD [Primary Care Provider] - 1-2 days Time of Disposition: 22:21
[2022-08-31 21:00] LABS: ALT 38 U/L (4-49); AST 99 U/L (17-59); African American GFR (CKD) 83 (>60 ml/min/1.73 sqM); Alkaline Phosphatase 94 U/L (38-126); Anion Gap 10 mmol/L; Blood Urea Nitrogen 27 mg/dL (9-20); Calcium 8.6 mg/dL (8.4-10.2); Carbon Dioxide 19 mmol/L (22-30); Chloride 107 mmol/L (98-107); Glucose 139 mg/dL (74-99); Lipase 1368 U/L (23-300); Magnesium 1.6 mg/dL (1.6-2.3); Non-African American GFR(CKD) 72 (>60 ml/min/1.73 sqM); Potassium 4.9 mmol/L (3.5-5.1); Sodium 136 mmol/L (137-145); Total Bilirubin 0.9 mg/dL (0.2-1.3)
[2022-08-31 21:19] LABS: Partial Thromboplastin Time 25.8 sec (22.0-30.0)
[2022-08-31 21:22] LABS: Basophils % (A) 0 %; Eosinophils # (A) 0.3 k/uL (0-0.7); Eosinophils % (A) 6 %; HCT 40.5 % (39.0-53.0); HGB 12.9 gm/dL (13.0-17.5); Hypochromasia Slight; Lymphocytes # (A) 1.7 k/uL (1.0-4.8); Lymphocytes % (A) 32 %; MCH 27.7 pg (25.0-35.0); MCV 86.7 fL (80.0-100.0); Mean Platelet Volume 9.3; Monocytes # (A) 0.3 k/uL (0-1.0); Monocytes % (A) 6 %; Neutrophils # (A) 2.8 k/uL (1.3-7.7); Neutrophils % (A) 54 %; RBC 4.67 m/uL (4.30-5.90); RDW 14.9 % (11.5-15.5); WBC 5.2 k/uL (3.8-10.6)
--- NOTE | 2022-08-31 21:22 | CT ---
EXAMINATION TYPE: CT abdomen pelvis w con DATE OF EXAM: 08/31/2022 COMPARISON: 07/19/2020 INDICATION: epigastric pain DLP: 1596.9 mGycm, Automated exposure control for dose reduction was used. CONTRAST: 100 mL of Isovue 300. Study performed without Oral Contrast TECHNIQUE: Axial images were obtained from above the diaphragm to the pubic rami in the axial plane a t 5 mm thick sections. Reconstructed images are reviewed on the computer in the coronal plane. FINDINGS: Limited CT sections are obtained the lung bases. The lung bases are clear. Coronary artery calcific ation is present CT ABDOMEN: Liver: Normal Spleen: Splenomegaly measuring 16.9 cm is present. Normal less than 12.5 cm. Pancreas: There may be some vague inflammatory changes within the mesentery adjacent to the pancreati c head and proximal body. Consider mild pancreatitis. No pseudocyst formation or masses are identifie d Adrenal glands: The adrenal glands are normal. Gallbladder: Normal Kidneys: No masses are evident. No hydronephrosis is present. No cysts are present. Delayed images were obtained through the kidneys, which remain unremarkable. Aorta: Vascular calcification is within the aorta. Inferior vena cava: Normal. CT PELVIS: Mesenteric fat-containing left inguinal hernia without loops of bowel appears to be presen t. Loops of bowel within the abdomen and pelvis are normal. Study is without oral contrast limiting bowel evaluation. Fluid-filled small bowel loops are present. Consider some mild ileus Appendix: Not visualized. No dilated tubular structure or inflammatory changes are evident. Urinary bladder: Normal. Genitourinary structures: Prostate is prominent. Osseous structures: No suspicious lytic or sclerotic lesions. There is a 2.2 x 3.7 oval hypodensity within the lower right hemipelvis. A large lymph node may be pr esent. IMPRESSIONS: 1. Splenomegaly. 2. Inflammatory changes adjacent to the head and proximal body of the pancreas. Correlate for mild pa ncreatitis. 3. Mild small bowel ileus. 4. Enlarged oval mass, possible lymph node, inferior right hemipelvis. 5. Left inguinal hernia
[2022-08-31 21:23] LABS: Platelet Count 89 k/uL (150-450)
[2022-08-31] MEDS ORDERED: ONDANSETRON 4 MG/2 ML VIAL IVP PRN (22:17)
[2022-08-31] MEDS ORDERED: NALOXONE 0.4 MG/ML 1 ML VIAL IV PRN (22:17)
[2022-08-31] MEDS ORDERED: HYDROmorphone 0.5 MG/0.5 ML SYRINGE IVP PRN (22:17)
[2022-09-01] MEDS: SODIUM CHLORIDE 0.9% 1,000 ML IV SCH ×2 (01:03→11:13)
[2022-09-01 06:00] LABS: Glucose,Whole Blood 108 mg/dL (70-110)
[2022-09-01 06:31] LABS: ALT 40 U/L (4-49); AST 72 U/L (17-59); African American GFR (CKD) >90 (>60 ml/min/1.73 sqM); Albumin 3.4 g/dL (3.5-5.0); Alkaline Phosphatase 98 U/L (38-126); Anion Gap 7 mmol/L; Blood Urea Nitrogen 24 mg/dL (9-20); Calcium 8.3 mg/dL (8.4-10.2); Carbon Dioxide 20 mmol/L (22-30); Chloride 114 mmol/L (98-107); Glucose 109 mg/dL (74-99); Lipase 389 U/L (23-300); Non-African American GFR(CKD) 81 (>60 ml/min/1.73 sqM); Potassium 4.6 mmol/L (3.5-5.1); Sodium 141 mmol/L (137-145); Total Bilirubin 0.7 mg/dL (0.2-1.3); Total Protein 6.1 g/dL (6.3-8.2)
[2022-09-01] MEDS ORDERED: DEXTROSE 50% SYRINGE 50 ML IVP PRN ×2 (06:57)
[2022-09-01] MEDS: INSULIN ASPART (NovoLOG) 100 UNIT/ML VIAL SQ SCH ×6 (07:25→21:11)
[2022-09-01 08:16] LABS: Basophils % (A) 0 %; Eosinophils # (A) 0.3 k/uL (0-0.7); Eosinophils % (A) 6 %; HCT 36.8 % (39.0-53.0); HGB 11.7 gm/dL (13.0-17.5); Hypochromasia Slight; Lymphocytes # (A) 1.5 k/uL (1.0-4.8); Lymphocytes % (A) 35 %; MCH 27.3 pg (25.0-35.0); MCV 85.5 fL (80.0-100.0); Monocytes # (A) 0.3 k/uL (0-1.0); Monocytes % (A) 7 %; Neutrophils # (A) 2.1 k/uL (1.3-7.7); Neutrophils % (A) 49 %; RDW 14.8 % (11.5-15.5); WBC 4.4 k/uL (3.8-10.6)
[2022-09-01 08:18] LABS: Platelet Count 77 k/uL (150-450)
[2022-09-01] MEDS: allopurinoL 100 MG TAB PO SCH ×2 (10:55→11:12)
[2022-09-01] MEDS: APIXABAN 5 MG TAB PO SCH ×2 (10:58→21:11)
[2022-09-01] MEDS: PANTOPRAZOLE 40 MG/10 ML VIAL IV SCH (11:12)
[2022-09-01] MEDS: TAMSULOSIN 0.4 MG CAP.ER.24H PO SCH ×2 (11:12→21:10)
[2022-09-01 11:45] LABS: Glucose,Whole Blood 199 mg/dL (70-110)
--- NOTE | 2022-09-01 12:40 | P.CONS ---
History of Present Illness - Reason for Consult Consult date: 09/01/22 Thrombo-cytopenia, splenomegaly - History of Present Illness The patient is a 87-year-old white male, who was admitted to the hospital for upper abdominal/lower chest pain, associated with nausea, vomiting and decreased appetite. He was found to have acute pancreatitis, and has improved significantly with supportive care. On admission his platelets were found to be in the 70-80,000 range, with CT of the abdomen and pelvis showing splenomegaly. Consult was therefore placed for further evaluation and recommendations. The patient was previously evaluated by myself in the office in 09/18 for mild thrombocytopenia, in the low 100 range. His workup revealed that this was due to chronic liver disease. Dedicated ultrasound of the liver and spleen had shown changes in the hepatic parenchyma consistent with steatosis, and splenomegaly. The patient denies any changes in lifestyle, specifically any significant a lcohol use, since his evaluation in 09/18. He has not had any unusual bleeding or bruising, and denies any other blood related issues. Review of Systems Constitutional: Reports anorexia, Reports fatigue Eyes: denies blurred vision, denies pain Ears: deny: decreased hearing, ear discharge, earache, tinnitus Ears, nose, mouth and throat: Denies headache, Denies sore throat Cardiovascular: Denies chest pain, Denies shortness of breath Respiratory: Denies cough Gastrointestinal: Reports abdominal pain, Reports bloating, Reports nausea, Reports vomiting Genitourinary: Reports as per HPI Musculoskeletal: Reports muscle weakness Integumentary: Denies pruritus, Denies rash Neurological: Reports weakness Psychiatric: Denies anxiety, Denies depression Endocrine: Reports fatigue Hematologic/Lymphatic: Reports as per HPI Past Medical History Past Medical History: Atrial Flutter, Coronary Artery Disease (CAD), Cancer, Chest Pain / Angina, Diabetes Mellitus, Hearing Disorder / Deafness, Hyperli pidemia, Hypertension, Prostate Disorder, Renal Disease Additional Past Medical History / Comment(s): BPH, bladder cancer 07/01/20, hearing aids History of Any Multi-Drug Resistant Organisms: None Reported Past Surgical History: Appendectomy, Bladder Surgery, Heart Catheterization, Joint Replacement, Tonsillectomy Additional Past Surgical History / Comment(s): left knee replaced, right rotator cuff SX, COLONOSCOPY, Past Anesthesia/Blood Transfusion Reactions: No Reported Reaction Past Psychological History: Depression Smoking Status: Former smoker Past Alcohol Use History: Occasional Additional Past Alcohol Use History / Comment(s): Smoked, up to 2 ppd, QUIT SMOKING 1980. Past Drug Use History: None Reported - Past Family History Mother Family Medical History: No Reported History Additional Family Medical History / Comment(s): Mother had history of congenital heart disease, CHF. Father Family Medical History: CVA/TIA Additional Family Medical History / Comment(s): Father contracted malaria. History of CVA. Brother(s) Family Medical History: No Reported History Additional Family Medical History / Comment(s): Brother has history of headaches. Sister(s) Family Medical History: No Reported History Daughter(s) Family Medical History: No Reported History Additional Family Medical History / Comment(s): Patient has one daughter with no major medical problems. Son(s) Family Medical History: No Reported History Additional Family Medical History / Comment(s): Patient has one son with no major medical problems. Medications and Allergies Home Medications Medication Instructions Recorded Confirmed Type Insulin Glargine,Hum.rec.anlog 65 unit SQ HS 02/21/14 08/31/22 History [Lantus Solostar Pen] Rosuvastatin Calcium [Crestor] 10 mg PO DAILY 02/21/14 08/31/22 History allopurinoL [Zyloprim] 100 mg PO DAILY 02/21/14 08/31/22 History sitaGLIPtin PHOS/metFORMIN HCL 1 tab PO DAILY 02/21/14 08/31/22 History [Janumet 50-1,000 mg Tablet] lisinopriL [Zestril] 2.5 mg PO DAILY tab 12/07/17 08/31/22 Rx Insulin Lispro [humaLOG Kwikpen] 10 unit SQ AC-TID 10/04/20 08/31/22 History Apixaban [Eliquis] 5 mg PO BID 11/13/20 08/31/22 History Tamsulosin [Flomax] 0.4 mg PO BID 07/30/21 08/31/22 History Semaglutide [Ozempic] 0.5 mg SQ BHAKTA 08/31/22 08/31/22 History Sildenafil Citrate 100 mg PO DAILY PRN 08/31/22 08/31/22 History Allergies Allergy/AdvReac Type Severity Reaction Status Date / Time No Known Allergies Allergy Verified 08/31/22 20:39 Physical Exam Vitals: Vital Signs Temp Pulse Pulse Resp BP BP Pulse Ox 09/01/22 08:36 96 09/01/22 07:57 97.9 F 55 L 18 137/69 96 09/01/22 02:55 97.8 F 65 19 104/61 100 09/01/22 02:12 56 L 16 102/77 97 09/01/22 01:09 83 16 117/83 97 08/31/22 20:02 97.8 F 59 L 18 117/69 97 Intake and Output 08/31/22 09/01/22 09/01/22 22:59 06:59 14:59 Other: # Voids 1 Weight 99.79 kg 99.79 kg - Constitutional General appearance: no acute distress - EENT Eyes: EOMI, PERRLA ENT: hearing grossly normal, normal oropharynx - Neck Neck: no lymphadenopathy Thyroid: bilateral: normal size - Respiratory Respiratory: bilateral: CTA - Cardiovascular Rhythm: regular Heart sounds: normal: S1, S2 - Gastrointestinal General gastrointestinal: normal bowel sounds, soft - Integumentary Integumentary: normal - Neurologic Neurologic: CNII-XII intact - Musculoskeletal Musculoskeletal: strength equal bilaterally - Psychiatric Psychiatric: A&O x's 3, appropriate affect Results CBC & Chem 7: 09/01/22 05:22 09/01/22 05:22 Labs: Abnormal Lab Results - Last 24 Hours (Table) 08/31/22 08/31/22 09/01/22 Range/Units 20:27 20:27 05:22 Hgb 12.9 L 11.7 L (13.0-17.5) gm/dL Hct 36.8 L (39.0-53.0) % Plt Count 89 L 77 L (150-450) k/uL Sodium 136 L (137-145) mmol/L Chloride (98-107) mmol/L Carbon Dioxide 19 L (22-30) mmol/L BUN 27 H (9-20) mg/dL Glucose 139 H (74-99) mg/dL POC Glucose (mg/dL) (70-110) mg/dL Calcium (8.4-10.2) mg/dL AST 99 H (17-59) U/L Total Protein (6.3-8.2) g/dL Albumin (3.5-5.0) g/dL Lipase 1368 H (23-300) U/L 09/01/22 09/01/22 Range/Units 05:22 11:43 Hgb (13.0-17.5) gm/dL Hct (39.0-53.0) % Plt Count (150-450) k/uL Sodium (137-145) mmol/L Chloride 114 H (98-107) mmol/L Carbon Dioxide 20 L (22-30) mmol/L BUN 24 H (9-20) mg/dL Glucose 109 H (74-99) mg/dL POC Glucose (mg/dL) 199 H (70-110) mg/dL Calcium 8.3 L (8.4-10.2) mg/dL AST 72 H (17-59) U/L Total Protein 6.1 L (6.3-8.2) g/dL Albumin 3.4 L (3.5-5.0) g/dL Lipase 389 H (23-300) U/L Comments: EKG report and images reviewed CT scan - abdomen: report reviewed CT scan - pelvis: report reviewed Assessment and Plan (1) Thrombocytopenia Narrative/Plan: This has been an ongoing problem, that was evaluated by myself in 2019. At that time platelet count was in the 100-120,000 range. Workup revealed that this was secondary to chronic liver disease, probably due to hepatic steatosis and resultant splenomegaly. This was confirmed on dedicated ultrasound. - The current computed tomography scan again notes splenomegaly, which, as noted, has been present previously. The liver is noted as normal, but dedicated ultrasound of the liver in 2019 had shown parenchymal changes. - The current drop in the platelet count from baseline is likely due to the added stress of acute illness from his pancreatitis. It is anticipated that his stated counts will return to his baseline, as his acute condition resolves. - Check coags and deficiency states to rule out other causes. Current Visit: Yes Status: Acute Code(s): D69.6 - THROMBOCYTOPENIA, UNSPECIFIED SNOMED Code(s): 322534292 Plan: Defer to the admitting service for management of his other medical problems.
--- NOTE | 2022-09-01 12:59 | P.HPIM ---
History of Present Illness H&P Date: 09/01/22 History of present illness; patient is 87-year-old gentleman with past medical history significant for insulin-dependent diabetes mellitus, hypertension who presented to the ER because of epigastric pain. Patient was initially in the ER yesterday and was diagnosed with pancreatitis but decided to leave from the ER as he had some family gathering to attend. Patient came back later in the evening. Worsening abdominal pain, patient also having nausea and vomiting. Patient currently on sitagliptin and ozempic both drugs associated with increased incidence of pancreatitis. Initial lab work done in the ER showed WBC 5.2, hemoglobin 12.9, platelet count 89, sodium 130s, potassium 4.9, BUN 27, creatinine 0.97, lipase 1368 CT abdomen pelvis done showed splenomegaly, inflammatory changes adjacent to the head and proximal body of the pancreas, mild prostatitis. Mild small bowel ileus Patient was admitted to medicine service REVIEW OF SYSTEMS: CONSTITUTIONAL: No fever, no malaise, no fatigue. HEENT: No recent visual problems or hearing problems. Denied any sore throat. CARDIOVASCULAR: No chest pain, orthopnea, PND, no palpitations, no syncope. PULMONARY: No shortness of breath, no cough, no hemoptysis. GASTROINTESTINAL: As mentioned in HPI NEUROLOGICAL: No headaches, no weakness, no numbness. HEMATOLOGICAL: Denies any bleeding or petechiae. GENITOURINARY: Denies any burning micturition, frequency, or urgency. MUSCULOSKELETAL/RHEUMATOLOGICAL: Denies any joint pain, swelling, or any muscle pain. ENDOCRINE: Denies any polyuria or polydipsia. The rest of the 14-point review of systems is negative. PHYSICAL EXAMINATION: GENERAL: The patient is alert and oriented x3, not in any acute distress. Well developed, well nourished. HEENT: Pupils are round and equally reacting to light. EOMI. No scleral icterus. No conjunctival pallor. Normocephalic, atraumatic. No pharyngeal erythema. No thyromegaly. CARDIOVASCULAR: S1 and S2 present. No murmurs, rubs, or gallops. PULMONARY: Chest is clear to auscultation, no wheezing or crackles. ABDOMEN: Soft, nontender, nondistended, normoactive bowel sounds. No palpable organomegaly. MUSCULOSKELETAL: No joint swelling or deformity. EXTREMITIES: No cyanosis, clubbing, or pedal edema. NEUROLOGICAL: Gross neurological examination did not reveal any focal deficits. SKIN: No rashes. Assessment and plan Acute pancreatitis could be secondary to sitagliptin or ozempic both drugs associated with increased incidence of pancreatitis Thrombocytopenia Splenomegaly Hypertension Hyperlipidemia Insulin-dependent diabetes mellitus Monitor CBC Monitor CMP Check lipid panel continue IV fluids Continue antiemetics Continue pain management Monitor blood sugar levels Resume Lantus 20 units twice a day and sliding scale insulin Hold oral hypoglycemics Resume home meds Consult hematology for thrombocytopenia Past Medical History Past Medical History: Atrial Flutter, Coronary Artery Disease (CAD), Cancer, Chest Pain / Angina, Diabetes Mellitus, Hearing Disorder / Deafness, Hyperlipidemia, Hypertension, Prostate Disorder, Renal Disease Additional Past Medical History / Comment(s): BPH, bladder cancer 07/01/20, hearing aids History of Any Multi-Drug Resistant Organisms: None Reported Past Surgical History: Appendectomy, Bladder Surgery, Heart Catheterization, Joint Replacement, Tonsillectomy Additional Past Surgical History / Comment(s): left knee replaced, right rotator cuff SX, COLONOSCOPY, Past Anesthesia/Blood Transfusion Reactions: No Reported Reaction Past Psychological History: Depression Smoking Status: Former smoker Past Alcohol Use History: Occasional Additional Past Alcohol Use History / Comment(s): Smoked, up to 2 ppd, QUIT SMOKING 1980. Past Drug Use History: None Reported - Past Family History Mother Family Medical History: No Reported History Additional Family Medical History / Comment(s): Mother had history of congenital heart disease, CHF. Father Family Medical History: CVA/TIA Additional Family Medical History / Comment(s): Father contracted malaria. History of CVA. Brother(s) Family Medical History: No Reported History Additional Family Medical History / Comment(s): Brother has history of headaches. Sister(s) Family Medical History: No Reported History Daughter(s) Family Medical History: No Reported History Additional Family Medical History / Comment(s): Patient has one daughter with no major medical problems. Son(s) Family Medical History: No Reported History Additional Family Medical History / Comment(s): Patient has one son with no major medical problems. Medications and Allergies Home Medications Medication Instructions Recorded Confirmed Type Insulin Glargine,Hum.rec.anlog 65 unit SQ HS 02/21/14 08/31/22 History [Lantus Solostar Pen] Rosuvastatin Calcium [Crestor] 10 mg PO DAILY 02/21/14 08/31/22 History allopurinoL [Zyloprim] 100 mg PO DAILY 02/21/14 08/31/22 History sitaGLIPtin PHOS/metFORMIN HCL 1 tab PO DAILY 02/21/14 08/31/22 History [Janumet 50-1,000 mg Tablet] lisinopriL [Zestril] 2.5 mg PO DAILY tab 12/07/17 08/31/22 Rx Insulin Lispro [humaLOG Kwikpen] 10 unit SQ AC-TID 10/04/20 08/31/22 History Apixaban [Eliquis] 5 mg PO BID 11/13/20 08/31/22 History Tamsulosin [Flomax] 0.4 mg PO BID 07/30/21 08/31/22 History Semaglutide [Ozempic] 0.5 mg SQ BHAKTA 08/31/22 08/31/22 History Sildenafil Citrate 100 mg PO DAILY PRN 08/31/22 08/31/22 History Allergies Allergy/AdvReac Type Severity Reaction Status Date / Time No Known Allergies Allergy Verified 08/31/22 20:39 Physical Exam Vitals: Vital Signs Temp Pulse Pulse Resp BP BP Pulse Ox 09/01/22 08:36 96 09/01/22 07:57 97.9 F 55 L 18 137/69 96 09/01/22 02:55 97.8 F 65 19 104/61 100 09/01/22 02:12 56 L 16 102/77 97 09/01/22 01:09 83 16 117/83 97 08/31/22 20:02 97.8 F 59 L 18 117/69 97 Intake and Output 08/31/22 09/01/22 09/01/22 22:59 06:59 14:59 Other: # Voids 1 Weight 99.79 kg 99.79 kg Results CBC & Chem 7: 09/01/22 05:22 09/01/22 05:22 Labs: Abnormal Lab Results - Last 24 Hours (Table) 08/31/22 08/31/22 09/01/22 Range/Units 20:27 20:27 05:22 Hgb 12.9 L 11.7 L (13.0-17.5) gm/dL Hct 36.8 L (39.0-53.0) % Plt Count 89 L 77 L (150-450) k/uL Sodium 136 L (137-145) mmol/L Chloride (98-107) mmol/L Carbon Dioxide 19 L (22-30) mmol/L BUN 27 H (9-20) mg/dL Glucose 139 H (74-99) mg/dL Calcium (8.4-10.2) mg/dL AST 99 H (17-59) U/L Total Protein (6.3-8.2) g/dL Albumin (3.5-5.0) g/dL Lipase 1368 H (23-300) U/L 09/01/22 Range/Units 05:22 Hgb (13.0-17.5) gm/dL Hct (39.0-53.0) % Plt Count (150-450) k/uL Sodium (137-145) mmol/L Chloride 114 H (98-107) mmol/L Carbon Dioxide 20 L (22-30) mmol/L BUN 24 H (9-20) mg/dL Glucose 109 H (74-99) mg/dL Calcium 8.3 L (8.4-10.2) mg/dL AST 72 H (17-59) U/L Total Protein 6.1 L (6.3-8.2) g/dL Albumin 3.4 L (3.5-5.0) g/dL Lipase 389 H (23-300) U/L Thrombosis Risk Factor Assmnt - Choose All That Apply Each Risk Factor Represents 3 Points: Age 75 years or older Thrombosis Risk Factor Assessment Total Risk Factor Score: 3 Thrombosis Risk Factor Assessment Level: Moderate Risk
[2022-09-01 14:59] LABS: Chol/HDL Ratio 2.38 Ratio; LDL Cholesterol,Calculated 45.3 mg/dL (0.0-131.0); VLDL Calculation 16.68 mg/dL (5.00-40.00)
[2022-09-01 17:25] LABS: Glucose,Whole Blood 59 mg/dL (70-110)
[2022-09-01 18:04] LABS: Glucose,Whole Blood 140 mg/dL (70-110)
[2022-09-01 20:35] LABS: Glucose,Whole Blood 140 mg/dL (70-110)
[2022-09-01] MEDS: INSULIN DETEMIR (LEVEMIR) 100 UNIT/ML SYR SQ SCH (21:09)
[2022-09-02] MEDS: SODIUM CHLORIDE 0.9% 1,000 ML IV SCH (02:38)
[2022-09-02 05:44] LABS: Glucose,Whole Blood 111 mg/dL (70-110)
[2022-09-02] MEDS: INSULIN ASPART (NovoLOG) 100 UNIT/ML VIAL SQ SCH ×4 (06:55→11:46)
[2022-09-02] MEDS: INSULIN DETEMIR (LEVEMIR) 100 UNIT/ML SYR SQ SCH (06:55)
[2022-09-02] MEDS ORDERED: ATORVASTATIN 20 MG TAB PO SCH (09:00)
[2022-09-02] MEDS: PANTOPRAZOLE 40 MG/10 ML VIAL IV SCH (09:20)
[2022-09-02] MEDS: TAMSULOSIN 0.4 MG CAP.ER.24H PO SCH (09:20)
[2022-09-02] MEDS: allopurinoL 100 MG TAB PO SCH (09:20)
[2022-09-02] MEDS: APIXABAN 5 MG TAB PO SCH (09:20)
[2022-09-02 09:22] VITALS: RESP 18; TEMP 97.5
[2022-09-02 11:46] LABS: Glucose,Whole Blood 72 mg/dL (70-110)
[2022-09-02 12:04] LABS: Basophils % (A) 0 %; Eosinophils # (A) 0.2 k/uL (0-0.7); Eosinophils % (A) 6 %; HCT 41.6 % (39.0-53.0); HGB 13.2 gm/dL (13.0-17.5); Hypochromasia Moderate; Lymphocytes # (A) 1.3 k/uL (1.0-4.8); Lymphocytes % (A) 36 %; MCHC 31.8 g/dL (31.0-37.0); Mean Platelet Volume 9.3; Monocytes # (A) 0.2 k/uL (0-1.0); Monocytes % (A) 6 %; Neutrophils # (A) 1.9 k/uL (1.3-7.7); Neutrophils % (A) 51 %; RBC 4.73 m/uL (4.30-5.90); RDW 14.7 % (11.5-15.5); WBC 3.7 k/uL (3.8-10.6)
[2022-09-02 12:10] LABS: Platelet Count 93 k/uL (150-450)
[2022-09-02 12:27] LABS: ALT 35 U/L (4-49); AST 46 U/L (17-59); African American GFR (CKD) >90 (>60 ml/min/1.73 sqM); Albumin/Globulin Ratio 1.4; Alkaline Phosphatase 87 U/L (38-126); Anion Gap 8 mmol/L; Blood Urea Nitrogen 13 mg/dL (9-20); Calcium 9.1 mg/dL (8.4-10.2); Carbon Dioxide 23 mmol/L (22-30); Chloride 113 mmol/L (98-107); Globulin 2.8 g/dL; Glucose 75 mg/dL (74-99); Non-African American GFR(CKD) 84 (>60 ml/min/1.73 sqM); Potassium 4.6 mmol/L (3.5-5.1); Sodium 144 mmol/L (137-145); Total Bilirubin 0.9 mg/dL (0.2-1.3); Total Protein 6.8 g/dL (6.3-8.2)
--- NOTE | 2022-09-02 13:09 | P.DS ---
Providers Date of admission: 08/31/22 22:17 Expected date of discharge: 09/02/22 Attending physician: Niko Abraham Consults: 09/01/22 09:29 Consult Physician Urgent Consulting Provider: Peña Cortez Consult Reason/Comments: Thrombocytopenia, splenomegaly Do you want consulting provider notified?: Yes Primary care physician: Niko Abraham Hospital Course: Discharge diagnoses; Acute pancreatitis could be secondary to sitagliptin or ozempic both drugs associated with increased incidence of pancreatitis Thrombocytopenia Splenomegaly Hypertension Hyperlipidemia Insulin-dependent diabetes mellitus Hospital course; patient is 87-year-old gentleman with past medical history significant for insulin-dependent diabetes mellitus, hypertension who presented to the ER because of epigastric pain. Patient was initially in the ER yesterday and was diagnosed with pancreatitis but decided to leave from the ER as he had some family gathering to attend. Patient came back later in the evening. Worsening abdominal pain, patient also having nausea and vomiting. Patient currently on sitagliptin and ozempic both drugs associated with increased incidence of pancreatitis. Initial lab work done in the ER showed WBC 5.2, hemoglobin 12.9, platelet count 89, sodium 130s, potassium 4.9, BUN 27, creatinine 0.97, lipase 1368 CT abdomen pelvis done showed splenomegaly, inflammatory changes adjacent to the head and proximal body of the pancreas, mild prostatitis. Mild small bowel ileus Patient was admitted to medicine service 09/02. Patient seen and examined. Abdominal pain improved, tolerating diet. Told the patient to stop taking Januvia and ozempic. Hematology oncology evaluated the patient for thrombocytopenia, Recommended Outpatient Follow-Up PHYSICAL EXAMINATION: GENERAL: The patient is alert and oriented x3, not in any acute distress. Well developed, well nourished. HEENT: Pupils are round and equally reacting to light. EOMI. No scleral icterus. No conjunctival pallor. Normocephalic, atraumatic. No pharyngeal erythema. No thyromegaly. CARDIOVASCULAR: S1 and S2 present. No murmurs, rubs, or gallops. PULMONARY: Chest is clear to auscultation, no wheezing or crackles. ABDOMEN: Soft, nontender, nondistended, normoactive bowel sounds. No palpable organomegaly. MUSCULOSKELETAL: No joint swelling or deformity. EXTREMITIES: No cyanosis, clubbing, or pedal edema. NEUROLOGICAL: Gross neurological examination did not reveal any focal deficits. SKIN: No rashes. Patient Condition at Discharge: Stable Plan - Discharge Summary Discharge Rx Participant: No New Discharge Prescriptions: Continue Rosuvastatin Calcium [Crestor] 10 mg PO DAILY allopurinoL [Zyloprim] 100 mg PO DAILY Insulin Glargine,Hum.rec.anlog [Lantus Solostar Pen] 65 unit SQ HS lisinopriL [Zestril] 2.5 mg PO DAILY tab Apixaban [Eliquis] 5 mg PO BID Tamsulosin [Flomax] 0.4 mg PO BID Sildenafil Citrate 100 mg PO DAILY PRN PRN Reason: E.D. Insulin Lispro [humaLOG Kwikpen] 10 unit SQ AC-TID Discontinued sitaGLIPtin PHOS/metFORMIN HCL [Janumet 50-1,000 mg Tablet] 1 tab PO DAILY Semaglutide [Ozempic] 0.5 mg SQ BHAKTA Discharge Medication List Insulin Glargine,Hum.rec.anlog [Lantus Solostar Pen] 65 unit SQ HS 02/21/14 [History] Rosuvastatin Calcium [Crestor] 10 mg PO DAILY 02/21/14 [History] allopurinoL [Zyloprim] 100 mg PO DAILY 02/21/14 [History] lisinopriL [Zestril] 2.5 mg PO DAILY tab 12/07/17 [Rx] Insulin Lispro [humaLOG Kwikpen] 10 unit SQ AC-TID 10/04/20 [History] Apixaban [Eliquis] 5 mg PO BID 11/13/20 [History] Tamsulosin [Flomax] 0.4 mg PO BID 07/30/21 [History] Sildenafil Citrate 100 mg PO DAILY PRN 08/31/22 [History] Follow up Appointment(s)/Referral(s): Niko Abraham MD [Primary Care Provider] - 1-2 days Discharge Disposition: HOME SELF-CARE
[2022-09-02 15:17] VITALS: BP 144/65; PULSE 63
[2022-09-05 04:44] LABS: Methylmalonic Acid 0.24 umol/L (<0.40)
== END 2022-09-02 15:23 | disposition home or self-care (01) ==
LOC: EC 20:01 → 4SSUR 22:17 → INTOOBSV 22:17 → 4SSUR 09-01 01:54 → UNDODISIN 09-02 15:23
PROVIDERS: ADMIT Internal Medicine; ATTEND Internal Medicine
DX: K85.90 Acute pancreatitis without necrosis or infection, unspecified (principal); D69.6 Thrombocytopenia, unspecified; E11.9 Type 2 diabetes mellitus without complications; I10 Essential (primary) hypertension; E78.5 Hyperlipidemia, unspecified; N40.0 Benign prostatic hyperplasia without lower urinary tract symptoms; K76.9 Liver disease, unspecified; I48.92 Unspecified atrial flutter; I25.10 Atherosclerotic heart disease of native coronary artery without angina pectoris; I44.0 Atrioventricular block, first degree; K56.7 Ileus, unspecified; K40.90 Unilateral inguinal hernia, without obstruction or gangrene, not specified as recurrent; H91.90 Unspecified hearing loss, unspecified ear; R16.1 Splenomegaly, not elsewhere classified; F32.A Depression, unspecified; Z79.4 Long term (current) use of insulin; Z79.84 Long term (current) use of oral hypoglycemic drugs; Z79.01 Long term (current) use of anticoagulants; Z79.85 Long-term (current) use of injectable non-insulin antidiabetic drugs; Z79.899 Other long term (current) drug therapy; Z85.51 Personal history of malignant neoplasm of bladder; Z87.891 Personal history of nicotine dependence; Z96.652 Presence of left artificial knee joint; Z97.4 Presence of external hearing-aid; Z98.890 Other specified postprocedural states; Z82.3 Family history of stroke; Z82.79 Family history of other congenital malformations, deformations and chromosomal abnormalities; Z83.1 Family history of other infectious and parasitic diseases
CPT/HCPCS: 96376; 96361 ×3; 96374; 99285; 36415; 94760 ×2; 93005; 83921; 82747; 80061; 80053 ×3; 82607; 83690 ×2; 83735; 84484; 85025 ×3; 85384; 85610; 85730; 74177; G0378 ×3; C9113 ×2; Q9967; 96360; 96372

== ENCOUNTER 2023-10-22 18:59 | Emergency (ER) | payer MEDICARE ==
[2023-10-22] MEDS ORDERED: SODIUM CHLORIDE 0.9% 500 ML BAG ONE (19:30)
--- NOTE | 2023-12-01 13:29 | XR ---
Nirmal Mesa G ID: [id number] : 1935 EXAMINATION TYPE: XR chest 2V DATE OF EXAM: 10/22/2023 COMPARISON: 08/31/2022 HISTORY: 88-year-old male nausea and vomiting TECHNIQUE: AP and lateral views FINDINGS: Heart mildly enlarged. Atherosclerotic arch calcifications. Strandy atelectasis mid and lower lungs. DISH within the lower thoracic spine. No maty consolidation or pleural effusion. Hazy densities rel ating to patient body habitus. IMPRESSION: Mild cardiomegaly. Hazy densities relating to patient body habitus. Some strandy atelectasis in the m id and lower lungs. No definite acute process.
== END 2023-10-23 00:20 | disposition home or self-care (01) ==
LOC: EC 18:59
CPT/HCPCS: 71046; 96360; 99284

== ENCOUNTER → 2023-11-06 | Outpatient (CLI) | payer MEDICARE ==
[2023-11-06 11:49] LABS: African American GFR (CKD) >90 (>60 ml/min/1.73 sqM); Blood Urea Nitrogen 26 mg/dL (9-20); Non-African American GFR(CKD) 78 (>60 ml/min/1.73 sqM)
--- NOTE | 2023-11-06 13:15 | CT ---
EXAMINATION TYPE: CT abdomen pelvis w con CT DLP: 1505.2 mGycm, Automated exposure control for dose reduction was used. DATE OF EXAM: 11/06/2023 12:48 PM COMPARISON: 08/31/2022 CLINICAL INDICATION: Male, 88 years old with history of C67.9 bladder ca; bladder cancer TECHNIQUE: Axial CT abdomen pelvis w con;Sagittal and coronal reformats were created on a separate w orkstation. Contrast used:100 mL of Isovue 300 with IV Contrast, (none if empty) Oral contrast used: with Oral Contrast (none if empty) FINDINGS: LOWER CHEST: Severe atherosclerosis of the coronary arteries ABDOMEN LIVER: Unremarkable GALLBLADDER AND BILE DUCTS: Unremarkable. PANCREAS: Unremarkable. SPLEEN: Unremarkable. ADRENAL GLANDS: Unremarkable. KIDNEYS AND URETERS: No evidence of hydronephrosis or renal calculus. The ureters are unremarkable. PELVIS BLADDER: No suspicious bladder wall thickening on this limited exam without excreted IV contrast. REPRODUCTIVE: Prostate is enlarged in size measuring 5.7 cm in transverse dimension. ABDOMEN & PELVIS STOMACH AND BOWEL: No evidence of bowel obstruction. Small bowel feces in the terminal ileum. Scatter ed colonic diverticula. PERITONEUM/RETROPERITONEUM: No evidence of pneumoperitoneum or free fluid. VASCULATURE: No evidence of aortic aneurysm. Atherosclerosis of the aorta. MUSCULOSKELETAL: No acute osseous abnormalities. Moderate disc degeneration changes are present throu ghout the thoracolumbar spine. LYMPH NODES: No gross evidence for lymphadenopathy. SOFT TISSUE/ABDOMINAL WALL: Fat-containing umbilical hernia. Fat-containing inguinal hernia. Lesion i n the perineum on the right seen on prior measures 37 x 20 mm, previously 37 x 22 mm. IMPRESSION: 1. Stable appearance of the bladder wall no suspicious thickening visualized on this limited exam. N o new lymphadenopathy identified. 2. Similar size of lesion in the right perineum compared to prior on 08/31/2022 etiology uncertain. 3. Severe atherosclerosis of the coronary arteries 4. Fat-containing left inguinal hernia and umbilical hernia. 5. Prostatomegaly correlate serum PSA.
== END | disposition home or self-care (01) ==
LOC: RADCTMAIN 10:35
PROVIDERS: ATTEND Urology
DX: C67.9 Malignant neoplasm of bladder, unspecified
CPT/HCPCS: 36415; 74177; 82565; 84520

== ENCOUNTER 2024-02-18 10:06 | Observation (INO) | payer MEDICARE ==
[2024-02-18 11:06] LABS: Basophils % (A) 0 %; Eosinophils # (A) 0.2 k/uL (0-0.7); Eosinophils % (A) 4 %; HCT 41.8 % (39.0-53.0); HGB 14.1 gm/dL (13.0-17.5); Lymphocytes # (A) 1.4 k/uL (1.0-4.8); Lymphocytes % (A) 23 %; MCHC 33.7 g/dL (31.0-37.0); Mean Platelet Volume 8.5; Monocytes # (A) 0.4 k/uL (0-1.0); Monocytes % (A) 6 %; Neutrophils # (A) 4.1 k/uL (1.3-7.7); Neutrophils % (A) 66 %; RBC 4.85 m/uL (4.30-5.90); WBC 6.2 k/uL (3.8-10.6)
[2024-02-18 11:11] LABS: ALT 23 U/L (4-49); AST 30 U/L (17-59); African American GFR (CKD) >90 (>60 ml/min/1.73 sqM); Albumin 4.3 g/dL (3.5-5.0); Alkaline Phosphatase 73 U/L (38-126); Anion Gap 5 mmol/L; Blood Urea Nitrogen 19 mg/dL (9-20); Calcium 9.8 mg/dL (8.4-10.2); Carbon Dioxide 22 mmol/L (22-30); Chloride 111 mmol/L (98-107); Glucose 132 mg/dL (74-99); Magnesium 1.8 mg/dL (1.6-2.3); Non-African American GFR(CKD) 80 (>60 ml/min/1.73 sqM); Potassium 4.5 mmol/L (3.5-5.1); Sodium 138 mmol/L (137-145); Total Protein 6.8 g/dL (6.3-8.2)
[2024-02-18 11:15] LABS: INR 1.1 (<1.2); Partial Thromboplastin Time 24.5 sec (22.0-30.0); Prothrombin Time 11.6 sec (10.0-12.5)
--- NOTE | 2024-02-18 11:15 | ED ---
Chest Pain HPI - General Chief Complaint: Chest Pain Stated Complaint: CHEST PAIN Time Seen by Provider: 02/18/24 10:10 Source: patient Mode of arrival: ambulatory - History of Present Illness Initial Comments: 88-year-old male presents emergency department with chest pain and epigastric pain. States that the pain started last night. He got better and then worsened again today. He describes it as a pressure sensation. He denies associated shortness of breath. He did not take anything for the pain before coming in. Denies history of similar pain. No nausea or vomiting. No diaphoresis. Does have a cardiac history. He has congestive heart failure and atrial flutter. Patient does take Eliquis for anticoagulation. No fevers. No ripping or tearing sensation to his back. No other alleviating, precipitating or modifying factors - Related Data Home Medications Medication Instructions Recorded Confirmed Insulin Glargine,Hum.rec.anlog 35 unit SQ HS 02/21/14 02/18/24 [Lantus Solostar Pen] Rosuvastatin Calcium [Crestor] 10 mg PO DAILY 02/21/14 02/18/24 allopurinoL [Zyloprim] 100 mg PO DAILY 02/21/14 02/18/24 Insulin Lispro [humaLOG Kwikpen] 10 unit SQ AC-TID 10/04/20 02/18/24 Apixaban [Eliquis] 5 mg PO BID 11/13/20 02/18/24 Tamsulosin [Flomax] 0.4 mg PO BID 07/30/21 02/18/24 Ascorbic Acid [Vitamin C] 1,000 mg PO DAILY 02/18/24 02/18/24 Ferrous Sulfate [Iron (65 MG 325 mg PO DAILY 02/18/24 02/18/24 Elemental)] Previous Rx's Medication Instructions Recorded lisinopriL [Zestril] 2.5 mg PO DAILY tab 12/07/17 Allergies Allergy/AdvReac Type Severity Reaction Status Date / Time No Known Allergies Allergy Verified 02/18/24 13:16 Review of Systems ROS Statement: Those systems with pertinent positive or pertinent negative responses have been documented in the HPI. ROS Other: All systems not noted in ROS Statement are negative. Past Medical History Past Medical History: Atrial Flutter, Coronary Artery Disease (CAD), Cancer, Chest Pain / Angina, Diabetes Mellitus, Hearing Disorder / Deafness, Hyperlipidemia, Hypertension, Prostate Disorder, Renal Disease Additional Past Medical History / Comment(s): BPH, bladder cancer 07/01/20, hearing aids History of Any Multi-Drug Resistant Organisms: None Reported Past Surgical History: Appendectomy, Bladder Surgery, Heart Catheterization, Joint Replacement, Tonsillectomy Additional Past Surgical History / Comment(s): left knee replaced, right rotator cuff SX, COLONOSCOPY, Past Anesthesia/Blood Transfusion Reactions: No Reported Reaction Past Psychological History: Depression Smoking Status: Former smoker Past Alcohol Use History: Occasional Past Drug Use History: None Reported - Past Family History Mother Family Medical History: No Reported History Additional Family Medical History / Comment(s): Mother had history of congenital heart disease, CHF. Father Family Medical History: CVA/TIA Additional Family Medical History / Comment(s): Father contracted malaria. History of CVA. Brother(s) Family Medical History: No Reported History Additional Family Medical History / Comment(s): Brother has history of headaches. Sister(s) Family Medical History: No Reported History Daughter(s) Family Medical History: No Reported History Additional Family Medical History / Comment(s): Patient has one daughter with no major medical problems. Son(s) Family Medical History: No Reported History Additional Family Medical History / Comment(s): Patient has one son with no major medical problems. General Exam General appearance: alert, in no apparent distress Head exam: Present: atraumatic, normocephalic, normal inspection Eye exam: Present: normal appearance, PERRL, EOMI. Absent: scleral icterus, co njunctival injection, periorbital swelling ENT exam: Present: normal exam, mucous membranes moist Neck exam: Present: normal inspection. Absent: tenderness, meningismus, lymphadenopathy Respiratory exam: Present: normal lung sounds bilaterally. Absent: respiratory distress, wheezes, rales, rhonchi, stridor Cardiovascular Exam: Present: regular rate, normal rhythm, normal heart sounds. Absent: systolic murmur, diastolic murmur, rubs, gallop, clicks GI/Abdominal exam: Present: tenderness (Epigastric), normal bowel sounds. Absent: distended, guarding, rebound, rigid Extremities exam: Present: normal inspection, full ROM, normal capillary refill. Absent: tenderness, pedal edema, joint swelling, calf tenderness Back exam: Present: normal inspection Neurological exam: Present: alert, oriented X3, CN II-XII intact Psychiatric exam: Present: normal affect, normal mood Skin exam: Present: warm, dry, intact, normal color. Absent: rash Course Vital Signs 02/18/24 02/18/24 02/18/24 10:08 14:44 18:12 Temperature 98 F Pulse Rate 58 L 87 68 Respiratory 18 18 22 Rate Blood Pressure 160/64 140/63 113/56 O2 Sat by Pulse 100 97 95 Oximetry 02/18/24 21:14 Temperature Pulse Rate 99 Respiratory 18 Rate Blood Pressure 116/67 O2 Sat by Pulse 94 L Oximetry Chest Pain MDM - MDM Was pt. sent in by a medical professional or institution (, PA, [employer], urgent care, hospital, or detention...) When possible be specific @ -No Did you speak to anyone other than the patient for history (EMS, parent, family, police, friend...)? What history was obtained from this source @ -No Did you review nursing and triage notes (agree or disagree)? Why? @ -I reviewed and agree with nursing and triage notes Were old charts reviewed (outside hosp., previous admission, EMS record, old EKG, old radiological studies, urgent care reports/EKG's, detention records)? Report findings @ -No old charts were reviewed Differential Diagnosis (chest pain, altered mental status, abdominal pain women, abdominal pain men, vaginal bleeding, weakness, fever, dyspnea, syncope, headache, dizziness, GI bleed, back pain, seizure, CVA, palpatations, mental health, musculoskeletal)? @ -Differential Chest Pain: Stable Angina, Unstable Angina, STEMI, NSTEMI Aortic Dissection, Pneumothorax, Musculoskeletal, Esophageal Spasm GERD, Cholecystitis, Pancreatitis, Zoster, this is not meant to be an all-inclusive list. EKG interpreted by me (3pts min.). @ -Yes and demonstrates sinus rhythm with occasional PACs. Rate of 60. RI interval 218. QRS 103. QTc of 414. No acute ST segment elevations or depressions X-rays interpreted by me (1pt min.). @ -Yes and demonstrates no acute process CT interpreted by me (1pt min.). @ -None done U/S interpreted by me (1pt. min.). @ -None done What testing was considered but not performed or refused? (CT, X-rays, U/S, labs)? Why? @ -None What meds were considered but not given or refused? Why? @ -None Did you discuss the management of the patient with other professionals (professionals i.e. , PA, [employer], lab, RT, psych nurse, geriatric social work professor, lunch cook, teacher, chairman and chief executive officer, pillowcase cutter)? Give summary @ -Spoke with Dr. Abraham for the admission Was smoking cessation discussed for >3mins.? @ -No Was critical care preformed (if so, how long)? @ -No Were there social determinants of health that impacted care today? How? (Homelessness, low income, unemployed, alcoholism, drug addiction, transportation, low edu. Level, literacy, decrease access to med. care, intermediate, rehab)? @ -No Was there de-escalation of care discussed even if they declined (Discuss DNR or withdrawal of care, Hospice)? DNR status @ -No What co-morbidities impacted this encounter? (DM, HTN, Smoking, COPD, CAD, Cancer, CVA, ARF, Chemo, Hep., AIDS, mental health diagnosis, sleep apnea, morbid obesity)? @ -Afebrile on anticoagulation Was patient admitted / discharged? Hospital course, mention meds given and route, prescriptions, significant lab abnormalities, going to OR and other pertinent info. @ -Upon arrival patient seen and evaluated in room 25. Thorough history and physical exam was performed. IV access was established. Laboratory studies are conducted. Chest x-ray was performed. I did recommend overnight observation for cardiac rule out. Patient is agreeable to this. Spoke with Dr. Abraham for the admission Undiagnosed new problem with uncertain prognosis? @ -No Drug Therapy requiring intensive monitoring for toxicity (Heparin, Nitro, Insulin, Cardizem)? @ -No Were any procedures done? @ -No Diagnosis/symptom? @ -Acute chest pain, possible ACS Acute, or Chronic, or Acute on Chronic? @ -Acute Uncomplicated (without systemic symptoms) or Complicated (systemic symptoms)? @ -Complicated Side effects of treatment? @ -No Exacerbation, Progression, or Severe Exacerbation? @ -No Poses a threat to life or bodily function? How? (Chest pain, [place], [place], pneumonia, PE, COPD, DKA, ARF, appy, cholecystitis, CVA, Diverticulitis, Homicidal, Suicidal, threat to staff... and all critical care pts) @ -No Disposition Clinical Impression: Pancreatitis, Chest pain Disposition: ADMITTED IP TO THIS HOSP Condition: Stable Is patient prescribed a controlled substance at d/c from ED?: No Time of Disposition: : Decision to Admit Reason: Admit from EC Decision Date: 02/18/24 Decision Time: :
--- NOTE | 2024-02-18 11:16 | XR ---
EXAMINATION TYPE: XR chest 2V DATE OF EXAM: 02/18/2024 11:13 AM COMPARISON: None. CLINICAL INDICATION: Male, 88 years old with history of Chest Pain, TECHNIQUE: Frontal and lateral views of the chest are obtained. FINDINGS: There is no focal air space opacity, pleural effusion, or pneumothorax seen. The cardiac silhouette size is within normal limits. The osseous structures are intact. IMPRESSION: No acute cardiopulmonary process. [facility], , 02/18/2024 11:14 AM
[2024-02-18 11:44] LABS: Lipase 3956 U/L (23-300)
[2024-02-18 12:15] LABS: Platelet Count 88 k/uL (150-450)
[2024-02-18 12:16] LABS: RBC Morphology Normal
--- NOTE | 2024-02-18 13:32 | CT ---
EXAMINATION TYPE: CT abdomen pelvis w con CT DLP: 1364.7 mGycm, Automated exposure control for dose reduction was used. DATE OF EXAM: 02/18/2024 1:21 PM COMPARISON: CT abdomen pelvis 11/06/2023, 08/31/2022 CLINICAL INDICATION:Male, 88 years old with history of abdominal pain; Abdominal pain TECHNIQUE: Standard CT of the abdomen and pelvis following the administration of 100 cc of Isovue 3 00 IV contrast material. Coronal and sagittal reformats were performed. FINDINGS: LOWER CHEST: Posterior dependent subsegmental atelectasis is noted. Moderate to severe coronary arter y calcifications. ABDOMEN LIVER: Unremarkable GALLBLADDER AND BILE DUCTS: Unremarkable. PANCREAS: Subtle patchy fat stranding around the pancreas. The pancreas enhances homogeneously. No fo jarret uterine fluid collections or ductal dilatation. SPLEEN: Mildly enlarged measuring 16.2 cm in greatest dimension. ADRENAL GLANDS: Unremarkable. KIDNEYS AND URETERS: No evidence of hydronephrosis or renal calculus. The kidneys enhance symmetrical ly. Similar bilateral perinephric fat stranding. Subcentimeter stable left renal cyst. Contrast is de monstrated within both collecting systems on the delayed phase. Left retroaortic renal vein. PELVIS BLADDER: Moderately distended. REPRODUCTIVE: Prostate is enlarged in size measuring 5.5 cm in transverse dimension. ABDOMEN & PELVIS STOMACH AND BOWEL: Stomach and duodenum are unremarkable. Redundant sigmoid colon. No focal bowel wal l thickening or surrounding inflammatory changes. The appendix is not definitively visualized however no significant inflammatory changes in the right lower quadrant. Stool is present within the small b owel suggesting slow transit. No evidence of bowel obstruction. PERITONEUM: No evidence of pneumoperitoneum or free fluid. VASCULATURE: Mild to moderate atherosclerotic calcifications are present throughout the abdominal aor ta and its branches. No evidence of aortic aneurysm. Pelvic phleboliths. MUSCULOSKELETAL: No acute osseous abnormalities. Moderate disc degeneration changes are present throu ghout the thoracolumbar spine. LYMPH NODES: Stable mildly prominent gastrohepatic lymph nodes measuring up to 9 mm short axis. SOFT TISSUE/ABDOMINAL WALL: Small to moderate size umbilical hernia redemonstrated containing fat and mesenteric vessels. Redemonstration of fat-containing left inguinal hernia. Similar 3.9 x 1.9 cm les ion in the right perineum (series 201, image 100). IMPRESSION: 1. Inflammatory changes surrounding the pancreas. Correlate for acute interstitial pancreatic head. No surrounding fluid collections. 2. Mild splenomegaly redemonstrated. 3. Stable right perineum lesion of uncertain etiology. 4. Stable umbilical and left inguinal fat-containing hernias. 5. Prostatomegaly. 6. Moderate to severe coronary artery calcifications. [facility], , 02/18/2024 1:29 PM
[2024-02-18] MEDS ORDERED: NALOXONE 0.4 MG/ML 1 ML VIAL IV PRN (14:24)
--- NOTE | 2024-02-18 14:59 | P.HPIM ---
History of Present Illness H&P Date: 02/18/24 Chief Complaint: Chest pain/acute pancreatitis HISTORY OF PRESENT ILLNESS This is an 88-year-old male patient of mine with past medical history of cor onary artery disease, hypertension, hyperlipidemia, diabetes mellitus type 2, generalized anxiety disorder, bladder cancer under the care of Dr. Navarrete, chronic gout, history of recurrent pancreatitis, he was hospitalized last in August 2022 for acute pancreatitis, patient woke up in the morning today with left-sided chest pain associated with minimal burping, minimal nausea no vomiting, he ended up coming to the emergency department for evaluation, he had a twelve-lead EKG did not show evidence of acute abnormalities, his vital signs were okay, his lipase was quite elevated, at 3956, had a CT scan of the abdomen pelvis that show evidence of acute pancreatitis, because of the presentation he was started on IV fluid resuscitation, pain management, he was admitted to the hospital for further evaluation GI consultation was obtained from Dr. Barksdale. REVIEW OF SYSTEMS Constitutional: No fever, no chills, no night sweats. No weight change. Generalized weakness,no fatigue or lethargy. No daytime sleepiness. HEENT: No headache. No blurred vision or double vision, no loss of vision. hard of Hearing, no ringing in the ears, no dizziness. No nasal drainage or co ngestion. No epistaxis. No sore throat. Lungs: Positive for shortness of breath,no cough, no sputum production. No wheezing. Cardiovascular: Reports chest pain, no lower extremity edema. No palpitations. No paroxysmal nocturnal dyspnea. No orthopnea. No lightheadedness or dizziness. No syncopal episodes. Abdominal: Positive for abdominal pain. No nausea, vomiting. No diarrhea. No constipation. No bloody or tarry stools.. No loss of appetite. Genitourinary: No dysuria, increased frequency, urgency. No urinary retention. Musculoskeletal: No myalgias. No muscle weakness, no gait dysfunction, no frequent falls. No back pain. No neck pain. Integumentary: No wounds, no lesions. No rash or pruritus. No unusual bruising. No change in hair or nails. Neurologic: No aphasia. No facial droop. No change in mentation. No head injury. No headache. No paralysis. No paresthesia. Psychiatric: No depression. No anxiety. No mood swings. Endocrine: No abnormal blood sugars. No weight change. MEDICAL HISTORY Coronary artery disease Hypertension Hyperlipidemia Diabetes mellitus type 2 Generalized anxiety disorder Bladder cancer Chronic gout SURGICAL HISTORY Left total knee arthroplasty Right shoulder rotator cuff repair Bladder surgery Appendectomy Tonsillectomy Colonoscopy and EGD 2020. SOCIAL HISTORY Patient has remote history of tobacco use, no alcohol use, marijuana or illicit drug use. FAMILY HISTORY Father from a stroke with history of malaria at 27 years of age. Mother at age 83 from heart failure. Patient has one half brother that at age 56 from Covid and [place]. Patient has one daughter with no major medical problems and 2 sons with no major medical problems. PHYSICAL EXAMINATION Gen: This is an 88-year-old male patient. He is resting in bed appears to be comfortable and in no acute distress. HEENT: Head is atraumatic, normocephalic. Pupils equal, round. Sclerae is anicteric, conjunctiva were pale mucous membranes of the mouth are somewhat dry. NECK: Supple. No JVD. No lymphadenopathy. No thyromegaly. LUNGS: decreased breath sound at bases, few rhonchi, no expiratory wheezes, no chest wall tenderness, no intercostal retractions. HEART: First heart sound is depressed, second heart sound is normal, 2/6 systolic ejection murmur at the left sternal border. No S3, no S4. ABDOMEN: Soft. Bowel sounds are present. No masses. mild tenderness in the epigastric area no rebound or guarding positive bowel sounds. EXTREMITIES: +2 edema no calf tenderness, dorsalis pedis +2 bilaterally. NEUROLOGICAL: Patient is awake, alert and oriented x3. Cranial nerves 2 through 12 are grossly intact, muscle power 4 out of 5 in upper and lower extremities bilaterally deep tendon reflexes were normal ASSESSMENT AND PLAN 1. Acute pancreatitis that has been recurrent due to possible the use of GLP-1 receptor agonist. We will discontinue that at this point in time, continue supportive care, continue IV fluid resuscitation in the form of normal saline, continue pain management, GI consultation appreciated. 2. Hypertension and hypertensive cardiovascular disease. Continue lisinopril 2.5 mg once every day, continue metoprolol 25 mg orally twice every day. 3. Mixed hyperlipidemia. Continue Rosuvastatin 10 mg orally daily, monitor the patient lipid panel, keep LDL 55-70. 4. Diabetes mellitus type 2. Continue Levemir 35 units at bedtime, we will continue with NovoLog sliding scale, discontinue Ozempic at this point in time. 5. paroxysmal atrial fibrillation. Continue patient on Eliquis 5 mg orally twice every day,, continue patient on metoprolol 25 mg orally twice every day. 6. History of bladder cancer under the care Dr Navarrete status post treatment. 7. Chronic gout. Continue allopurinol 100 mg daily 8. GI prophylaxis. Protonix 40 mg orally once every day. 9. DVT prophylaxis. continue with bilateral knee-high YUNIEL hose, continue Eliquis 5 mg po bid 10. Observation. Will repeat the patient labs tomorrow morning for 11. Full code. Past Medical History Past Medical History: Atrial Flutter, Coronary Artery Disease (CAD), Cancer, Chest Pain / Angina, Diabetes Mellitus, Hearing Disorder / Deafness, Hyperlipidemia, Hypertension, Prostate Disorder, Renal Disease Additional Past Medical History / Comment(s): BPH, bladder cancer 07/01/20, hearing aids History of Any Multi-Drug Resistant Organisms: None Reported Past Surgical History: Appendectomy, Bladder Surgery, Heart Catheterization, Joint Replacement, Tonsillectomy Additional Past Surgical History / Comment(s): left knee replaced, right rotator cuff SX, COLONOSCOPY, Past Anesthesia/Blood Transfusion Reactions: No Reported Reaction Past Psychological History: Depression Smoking Status: Former smoker Past Alcohol Use History: Occasional Past Drug Use History: None Reported - Past Family History Mother Family Medical History: No Reported History Additional Family Medical History / Comment(s): Mother had history of congenital heart disease, CHF. Father Family Medical History: CVA/TIA Additional Family Medical History / Comment(s): Father contracted malaria. History of CVA. Brother(s) Family Medical History: No Reported History Additional Family Medical History / Comment(s): Brother has history of headaches. Sister(s) Family Medical History: No Reported History Daughter(s) Family Medical History: No Reported History Additional Family Medical History / Comment(s): Patient has one daughter with no major medical problems. Son(s) Family Medical History: No Reported History Additional Family Medical History / Comment(s): Patient has one son with no major medical problems. Medications and Allergies Home Medications Medication Instructions Recorded Confirmed Type Insulin Glargine,Hum.rec.anlog 35 unit SQ HS 02/21/14 02/18/24 History [Lantus Solostar Pen] Rosuvastatin Calcium [Crestor] 10 mg PO DAILY 02/21/14 02/18/24 History allopurinoL [Zyloprim] 100 mg PO DAILY 02/21/14 02/18/24 History lisinopriL [Zestril] 2.5 mg PO DAILY tab 12/07/17 02/18/24 Rx Insulin Lispro [humaLOG Kwikpen] 10 unit SQ AC-TID 10/04/20 02/18/24 History Apixaban [Eliquis] 5 mg PO BID 11/13/20 02/18/24 History Tamsulosin [Flomax] 0.4 mg PO BID 07/30/21 02/18/24 History Ascorbic Acid [Vitamin C] 1,000 mg PO DAILY 02/18/24 02/18/24 History Ferrous Sulfate [Feosol] 325 mg PO DAILY 02/18/24 02/18/24 History Semaglutide [Ozempic] 1 mg SQ BHAKTA 02/18/24 02/18/24 History Allergies Allergy/AdvReac Type Severity Reaction Status Date / Time No Known Allergies Allergy Verified 02/18/24 13:16 Physical Exam Vitals: Vital Signs Temp Pulse Resp BP Pulse Ox 02/18/24 14:44 87 18 140/63 97 02/18/24 10:08 98 F 58 L 18 160/64 100 Intake and Output 02/17/24 02/18/24 02/18/24 22:59 06:59 14:59 Other: Weight 92.986 kg Results CBC & Chem 7: 02/18/24 10:48 02/18/24 10:48 Labs: Abnormal Lab Results - Last 24 Hours (Table) 02/18/24 02/18/24 Range/Units 10:48 10:48 Plt Count 88 L (150-450) k/uL Chloride 111 H (98-107) mmol/L Glucose 132 H (74-99) mg/dL Lipase 3956 H (23-300) U/L
[2024-02-18] MEDS ORDERED: ONDANSETRON 4 MG/2 ML VIAL IVP PRN (15:01)
[2024-02-18 16:54] LABS: Glucose,Whole Blood 138 mg/dL (70-110)
[2024-02-18] MEDS: INSULIN ASPART (NovoLOG) 100 UNIT/ML VIAL SQ SCH (17:45)
[2024-02-18 20:59] LABS: Glucose,Whole Blood 134 mg/dL (70-110)
[2024-02-18] MEDS: TAMSULOSIN 0.4 MG CAP.ER.24H PO SCH (21:13)
[2024-02-18] MEDS: APIXABAN 5 MG TAB PO SCH (21:13)
[2024-02-18] MEDS: INSULIN DETEMIR (LEVEMIR) 100 UNIT/ML SYR SQ SCH (22:21)
[2024-02-19] MEDS ORDERED: MORPHINE SULFATE 2 MG/ML SYRINGE IVP PRN (00:37)
[2024-02-19] MEDS: SODIUM CHLORIDE 0.9% 1,000 ML IV SCH (00:45)
[2024-02-19 06:11] LABS: Glucose,Whole Blood 117 mg/dL (70-110)
[2024-02-19] MEDS: PANTOPRAZOLE 40 MG/10 ML VIAL IVP SCH (08:21)
[2024-02-19] MEDS: allopurinoL 100 MG TAB PO SCH (08:22)
[2024-02-19] MEDS: FERROUS SULFATE 325 MG TAB PO SCH (08:22)
[2024-02-19] MEDS: ASCORBIC ACID 500 MG TAB PO SCH (08:22)
[2024-02-19] MEDS: ATORVASTATIN 20 MG TAB PO SCH (08:22)
[2024-02-19 09:49] LABS: Basophils # (A) 0.03 X 10*3/uL (0.00-0.10); Basophils % (A) 0.5 %; Eosinophils # (A) 0.21 X 10*3/uL (0.04-0.35); Eosinophils % (A) 3.4 %; HGB 13.2 g/dL (13.0-17.0); Lymphocytes # (A) 1.53 X 10*3/uL (0.90-5.00); Lymphocytes % (A) 24.5 %; MCH 27.4 pg (27.0-32.0); MCHC 31.4 g/dL (32.0-37.0); MCV 87.1 FL (80.0-97.0); Mean Platelet Volume 10.7 FL (9.5-12.2); Monocytes # (A) 0.48 X 10*3/uL (0.20-1.00); Monocytes % (A) 7.7 %; NRBC Per 100 WBC 0 X 10*3/uL (0.00-0.01); Neutrophils # (A) 3.98 X 10*3/uL (1.80-7.70); Neutrophils % (A) 63.6 %; Platelet Count 89 X 10*3/uL (140-440); RBC 4.82 X 10*6/uL (4.40-5.60); RDW 14.6 % (11.5-14.5); WBC 6.25 X 10*3/uL (4.50-10.00)
[2024-02-19 10:41] LABS: ALT 16 U/L (10-49); AST 20 U/L (14-35); Albumin 3.8 g/dL (3.8-4.9); Albumin/Globulin Ratio 1.73 Ratio (1.60-3.17); Alkaline Phosphatase 66 U/L (41-126); Blood Urea Nitrogen 15.6 mg/dL (9.0-27.0); Calcium 9.1 mg/dL (8.7-10.3); Carbon Dioxide 22.4 mmol/L (21.6-31.8); Chloride 110 mmol/L (96-109); Globulin 2.2 g/dL (1.6-3.3); Glucose 128 mg/dL (70-110); Lipase 280 U/L (14-60); Potassium 4.5 mmol/L (3.5-5.5); Sodium 144 mmol/L (135-145); Total Bilirubin 0.9 mg/dL (0.3-1.2)
[2024-02-19 12:02] LABS: Glucose,Whole Blood 259 mg/dL (70-110)
--- NOTE | 2024-02-19 14:29 | P.CONS ---
History of Present Illness - Reason for Consult Consult date: 02/19/24 Pancreatitis Requesting physician: Niko Abraham - Chief Complaint Abdominal pain - History of Present Illness This a pleasant 88-year-old male with a past medical history of diabetes mellitus on Ozempic, pancreatitis, CHF, atrial fibrillation on Eliquis, hypertension, coronary artery disease and bladder cancer status post chemo diagnosed in 2019. Patient states he started getting epigastric pain Agata night not associated with any nausea or vomiting. States he had this once before 1 to 2 years ago. States he was diagnosed with pancreatitis but he was unsure of the etiology. He denies any current alcohol use but states that he was a heavy drinker and drinks daily for 8 to 10 years but he quit 25 years ago. Patient presented with an elevated lipase of 3956, no elevation in his LFTs, no leukocytosis. Apparently patient has been on Ozempic for his diabetes mellitus and was thought that could be the cause of his pancreatitis. They had stopped it and then resumed it. Today patient states his abdominal pain is quite a bit better and almost resolved. He has been tolerating clear liquid diet without any nausea or vomiting. Review of Systems REVIEW OF SYSTEMS: CARDIOPULMONARY: No chest pain or shortness of breath. Gastrointestinal: Abdominal pain, sharp in the epigastric region. No nausea or vomiting. No hematemesis, coffee-ground emesis. No rectal bleeding, or melena. GENITOURINARY: No dysuria or hematuria. MUSCULOSKELETAL: Reports normal range of motion., Joint pain. SKIN: No rashes. No jaundice. ENDOCRINE: No chills, fevers. No excessive weight gain or loss. No polydipsia or polyuria. PSYCHIATRIC: Unremarkable. NEUROLOGY: No change in mental status. Denies dizziness, headache. ENT: Vision unremarkable. CONSTITUTIONAL: No recent weight loss. No fever, chills, night sweats. Past Medical History Past Medical History: Atrial Flutter, Coronary Artery Disease (CAD), Cancer, Chest Pain / Angina, Diabetes Mellitus, Hearing Disorder / Deafness, Hyperlipidemia, Hypertension, Prostate Disorder, Renal Disease Additional Past Medical History / Comment(s): BPH, bladder cancer 07/01/20, hearing aids History of Any Multi-Drug Resistant Organisms: None Reported Past Surgical History: Appendectomy, Bladder Surgery, Heart Catheterization, Joint Replacement, Tonsillectomy Additional Past Surgical History / Comment(s): left knee replaced, right rotator cuff SX, COLONOSCOPY, Past Anesthesia/Blood Transfusion Reactions: No Reported Reaction Past Psychological History: Depression Smoking Status: Former smoker Past Alcohol Use History: Occasional Additional Past Alcohol Use History / Comment(s): Smoked, up to 2 ppd, QUIT SMOKING 1980. Past Drug Use History: None Reported - Past Family History Mother Family Medical History: No Reported History Additional Family Medical History / Comment(s): Mother had history of congenital heart disease, CHF. Father Family Medical History: CVA/TIA Additional Family Medical History / Comment(s): Father contracted malaria. History of CVA. Brother(s) Family Medical History: No Reported History Additional Family Medical History / Comment(s): Brother has history of headaches. Sister(s) Family Medical History: No Reported History Daughter(s) Family Medical History: No Reported History Additional Family Medical History / Comment(s): Patient has one daughter with no major medical problems. Son(s) Family Medical History: No Reported History Additional Family Medical History / Comment(s): Patient has one son with no major medical problems. Medications and Allergies Home Medications Medication Instructions Recorded Confirmed Type Insulin Glargine,Hum.rec.anlog 35 unit SQ HS 02/21/14 02/18/24 History [Lantus Solostar Pen] Rosuvastatin Calcium [Crestor] 10 mg PO DAILY 02/21/14 02/18/24 History allopurinoL [Zyloprim] 100 mg PO DAILY 02/21/14 02/18/24 History lisinopriL [Zestril] 2.5 mg PO DAILY tab 12/07/17 02/18/24 Rx Insulin Lispro [humaLOG Kwikpen] 10 unit SQ AC-TID 10/04/20 02/18/24 History Apixaban [Eliquis] 5 mg PO BID 11/13/20 02/18/24 History Tamsulosin [Flomax] 0.4 mg PO BID 07/30/21 02/18/24 History Ascorbic Acid [Vitamin C] 1,000 mg PO DAILY 02/18/24 02/18/24 History Ferrous Sulfate [Feosol] 325 mg PO DAILY 02/18/24 02/18/24 History Semaglutide [Ozempic] 1 mg SQ BHAKTA 02/18/24 02/18/24 History Allergies Allergy/AdvReac Type Severity Reaction Status Date / Time No Known Allergies Allergy Verified 02/18/24 13:16 Physical Exam Vitals: Vital Signs Temp Pulse Pulse Resp BP BP Pulse Ox 02/19/24 07:00 98.1 F 56 L 17 145/74 97 02/19/24 03:19 98.1 F 62 16 146/57 94 L 02/18/24 22:01 97.7 F 60 18 149/62 94 L 02/18/24 21:14 99 18 116/67 94 L 02/18/24 18:12 68 22 113/56 95 02/18/24 14:44 87 18 140/63 97 02/18/24 10:08 98 F 58 L 18 160/64 100 Intake and Output 02/18/24 02/19/24 02/19/24 22:59 06:59 14:59 Other: # Voids 1 2 Weight 92.986 kg General appearance: The patient is alert, oriented, appears in no acute distress. HET: Head is normocephalic and atraumatic. Conjunctiva pink. Sclera anicteric. Neck: Supple without lymphadenopathy. Trachea midline. Heart: Regular. Lungs: Equal expansion, normal respiratory effort. Abdomen: Soft, nontender, nondistended. Skin: No rashes. No jaundice. Extremities: Normal skin color and turgor. No pedal edema. Neurological: No focal deficits. Alert and oriented x3. Results CBC & Chem 7: 02/19/24 05:48 02/19/24 05:48 Labs: Abnormal Lab Results - Last 24 Hours (Table) 02/18/24 02/18/24 02/18/24 Range/Units 10:48 10:48 16:53 Plt Count 88 L (150-450) k/uL Chloride 111 H (98-107) mmol/L Glucose 132 H (74-99) mg/dL POC Glucose (mg/dL) 138 H (70-110) mg/dL Lipase 3956 H (23-300) U/L 02/18/24 02/19/24 Range/Units 20:58 06:10 Plt Count (150-450) k/uL Chloride (98-107) mmol/L Glucose (74-99) mg/dL POC Glucose (mg/dL) 134 H 117 H (70-110) mg/dL Lipase (23-300) U/L Comments: CT abdomen pelvis with contrast reports inflammatory changes surrounding the pancreas. Correlate for acute interstitial pancreatic head. No surrounding fluid collections. Mild splenomegaly redemonstrated. Stable right perineum le blanquita of uncertain etiology. Stable umbilical and left inguinal fat-containing hernias. Prostamegaly. Moderate to severe coronary artery calcifications. Assessment and Plan (1) Pancreatitis Narrative/Plan: 88-year-old male with a history of diabetes mellitus on Ozempic with a previous history of pancreatitis after starting Ozempic for diabetes mellitus. Patient had stopped and then restarted the Ozempic. He has been on it for several nica hs without any problems until now. He presented with elevated lipase and CT evidence of pancreatitis likely medication induced secondary to Ozempic. Will obtain triglycerides. Patient does have a remote history of alcoholism however has not drank in over 25 years. Recommend discontinuing Ozempic. Continue to treat symptomatically. No further workup indicated. Current Visit: Yes Status: Acute Code(s): K85.90 - ACUTE PANCREATITIS WITHOUT NECROSIS OR INFECTION, UNSP SNOMED Code(s): 98674113 (2) Diabetes mellitus Current Visit: Yes Status: Acute Code(s): E11.9 - TYPE 2 DIABETES MELLITUS WITHOUT COMPLICATIONS SNOMED Code(s): 71848423 (3) Coronary artery disease Current Visit: No Status: Acute Code(s): I25.10 - ATHSCL HEART DISEASE OF [place] CORONARY ARTERY W/O ANG PCTRS SNOMED Code(s): 34557476 (4) Hyperlipidemia Current Visit: No Status: Acute Code(s): E78.5 - HYPERLIPIDEMIA, UNSPECIFIED SNOMED Code(s): 31367469 Plan: 1. Continue symptomatic and supportive care 2. May advance to low-fat diet 3. Pain medication as needed 4. Antiemetics as needed 5. Protonix 40 mg daily for GI prophylaxis 6. Recommend discontinuing Ozempic 7. Triglycerides ordered 8. No further workup indicated Thank you for this consultation, anticipate patient will be ready for discharge tomorrow. Dr. Joe Carey I agree with the dictator's note, documented as a scribe by Mavis Madera.
[2024-02-19 17:29] LABS: Glucose,Whole Blood 136 mg/dL (70-110)
--- NOTE | 2024-02-19 19:45 | P.PN ---
Subjective Progress Note Date: 02/19/24 HISTORY OF PRESENT ILLNESS This is an 88-year-old male patient of mine with past medical history of coronary artery disease, hypertension, hyperlipidemia, diabetes mellitus type 2, generalized anxiety disorder, bladder cancer under the care of Dr. Navarrete, chronic gout, history of recurrent pancreatitis, he was hospitalized last in August 2022 for acute pancreatitis, patient woke up in the morning today with left-sided chest pain associated with minimal burping, minimal nausea no vomiting, he ended up coming to the emergency department for evaluation, he had a twelve-lead EKG did not show evidence of acute abnormalities, his vital signs were okay, his lipase was quite elevated, at 3956, had a CT scan of the abdomen pelvis that show evidence of acute pancreatitis, because of the presentation he was started on IV fluid resuscitation, pain management, he was admitted to the hospital for further evaluation GI consultation was obtained from Dr. Carey. 02/18: Patient sitting up in bed in no apparent distress, his feet a lot better today, he continues to have some pressure in the epigastric area, he has no nausea or vomiting at this time, he was started on IV fluid resuscitation, he is receiving morphine for pain control, he was seen earlier by gastroenterology, patient will be started on full liquid diet, repeat the patient amylase and lipase in the next 24 hours. His lipase today is 280 much better improvement. REVIEW OF SYSTEMS Constitutional: No fever, no chills, no night sweats. No weight change. Generalized weakness,no fatigue or lethargy. No daytime sleepiness. HEENT: No headache. No blurred vision or double vision, no loss of vision. hard of Hearing, no ringing in the ears, no dizziness. No nasal drainage or congestion. No epistaxis. No sore throat. Lungs: Positive for shortness of breath,no cough, no sputum production. No wheezing. Cardiovascular: Reports chest pain, no lower extremity edema. No palpitations. No paroxysmal nocturnal dyspnea. No orthopnea. No lightheadedness or dizziness. No syncopal episodes. Abdominal: Positive for abdominal pain. No nausea, vomiting. No diarrhea. No constipation. No bloody or tarry stools.. No loss of appetite. Genitourinary: No dysuria, increased frequency, urgency. No urinary retention. Musculoskeletal: No myalgias. No muscle weakness, no gait dysfunction, no frequent falls. No back pain. No neck pain. Integumentary: No wounds, no lesions. No rash or pruritus. No unusual bruising. No change in hair or nails. Neurologic: No aphasia. No facial droop. No change in mentation. No head injury. No headache. No paralysis. No paresthesia. Psychiatric: No depression. No anxiety. No mood swings. Endocrine: No abnormal blood sugars. No weight change. PHYSICAL EXAMINATION Gen: This is an 88-year-old male patient. He is resting in bed appears to be comfortable and in no acute distress. HEENT: Head is atraumatic, normocephalic. Pupils equal, round. Sclerae is anicteric, conjunctiva were pale mucous membranes of the mouth are somewhat dry. NECK: Supple. No JVD. No lymphadenopathy. No thyromegaly. LUNGS: decreased breath sound at bases, few rhonchi, no expiratory wheezes, no chest wall tenderness, no intercostal retractions. HEART: First heart sound is depressed, second heart sound is normal, 2/6 systol ic ejection murmur at the left sternal border. No S3, no S4. ABDOMEN: Soft. Bowel sounds are present. No masses. mild tenderness in the epigastric area no rebound or guarding positive bowel sounds. EXTREMITIES: +2 edema no calf tenderness, dorsalis pedis +2 bilaterally. NEUROLOGICAL: Patient is awake, alert and oriented x3. Cranial nerves 2 through 12 are grossly intact, muscle power 4 out of 5 in upper and lower extremities bilaterally deep tendon reflexes were normal ASSESSMENT AND PLAN 1. Acute pancreatitis that has been recurrent due to possible the use of GLP-1 receptor agonist. We will discontinue that at this point in time, continue supportive care, continue IV fluid resuscitation in the form of normal saline, continue pain management, GI consultation appreciated. 2. Hypertension and hypertensive cardiovascular disease. Continue lisinopril 2.5 mg once every day, continue metoprolol 25 mg orally twice every day. 3. Mixed hyperlipidemia. Continue Rosuvastatin 10 mg orally daily, monitor the patient lipid panel, keep LDL 55-70. 4. Diabetes mellitus type 2. Continue Levemir 35 units at bedtime, we will continue with NovoLog sliding scale, discontinue Ozempic at this point in time. 5. paroxysmal atrial fibrillation. Continue patient on Eliquis 5 mg orally twice every day,, continue patient on metoprolol 25 mg orally twice every day. 6. History of bladder cancer under the care Dr Navarrete status post treatment. 7. Chronic gout. Continue allopurinol 100 mg daily 8. GI prophylaxis. Protonix 40 mg orally once every day. 9. DVT prophylaxis. continue with bilateral knee-high YUNIEL hose, continue Eliquis 5 mg po bid 10. Likely home tomorrow morning Objective - Vital Signs Vital signs: Vital Signs Temp 97.8 F 02/19/24 14:27 Pulse 73 02/19/24 14:27 Resp 18 02/19/24 14:27 BP 112/61 02/19/24 14:27 Pulse Ox 97 02/19/24 14:27 FiO2 Intake & Output 02/19/24 02/19/24 02/20/24 06:59 18:59 06:59 Intake Total 716 Balance 716 Weight 92.986 kg Intake: Oral 716 Other: # Voids 2 2 - Labs CBC & Chem 7: 02/19/24 05:48 02/19/24 05:48 Labs: Abnormal Lab Results - Last 24 Hours (Table) 02/18/24 02/19/24 02/19/24 Range/Units 20:58 05:48 05:48 MCHC 31.4 L (32.0-37.0) g/dL RDW 14.6 H (11.5-14.5) % Plt Count 89 L (140-440) X 10*3/uL Chloride 110 H (96-109) mmol/L Glucose 128 H (70-110) mg/dL POC Glucose (mg/dL) 134 H (70-110) mg/dL Total Protein 6.0 L (6.2-8.2) g/dL Lipase 280 H (14-60) U/L 02/19/24 02/19/24 02/19/24 Range/Units 06:10 12:01 17:28 MCHC (32.0-37.0) g/dL RDW (11.5-14.5) % Plt Count (140-440) X 10*3/uL Chloride (96-109) mmol/L Glucose (70-110) mg/dL POC Glucose (mg/dL) 117 H 259 H 136 H (70-110) mg/dL Total Protein (6.2-8.2) g/dL Lipase (14-60) U/L
[2024-02-19 20:39] LABS: Glucose,Whole Blood 159 mg/dL (70-110)
[2024-02-20 05:46] LABS: Glucose,Whole Blood 92 mg/dL (70-110)
[2024-02-20 07:22] VITALS: BP 138/70; PULSE 56; RESP 16; TEMP 98
[2024-02-20 07:47] LABS: Glucose,Whole Blood 74 mg/dL (70-110)
[2024-02-20 08:53] LABS: Basophils # (A) 0.04 X 10*3/uL (0.00-0.10); Basophils % (A) 0.7 %; Eosinophils # (A) 0.22 X 10*3/uL (0.04-0.35); Eosinophils % (A) 3.9 %; HCT 37.9 % (39.6-50.0); HGB 12.5 g/dL (13.0-17.0); Lymphocytes # (A) 1.83 X 10*3/uL (0.90-5.00); Lymphocytes % (A) 32.7 %; MCH 28.4 pg (27.0-32.0); MCV 86.1 FL (80.0-97.0); Mean Platelet Volume 10.6 FL (9.5-12.2); Monocytes # (A) 0.47 X 10*3/uL (0.20-1.00); Monocytes % (A) 8.4 %; NRBC Per 100 WBC 0 X 10*3/uL (0.00-0.01); Neutrophils # (A) 3.02 X 10*3/uL (1.80-7.70); Neutrophils % (A) 54.1 %; Platelet Count 85 X 10*3/uL (140-440); RDW 14.6 % (11.5-14.5); WBC 5.59 X 10*3/uL (4.50-10.00)
[2024-02-20 09:13] LABS: BUN/Creat Ratio 21.22 Ratio (12.00-20.00); Blood Urea Nitrogen 19.1 mg/dL (9.0-27.0); Carbon Dioxide 20.6 mmol/L (21.6-31.8); Chloride 115 mmol/L (96-109); Glucose 65 mg/dL (70-110); Potassium 4.4 mmol/L (3.5-5.5); Sodium 144 mmol/L (135-145)
[2024-02-20 09:14] LABS: ALT 15 U/L (10-49); AST 20 U/L (14-35); Albumin 3.6 g/dL (3.8-4.9); Albumin/Globulin Ratio 1.89 Ratio (1.60-3.17); Alkaline Phosphatase 61 U/L (41-126); Calcium 8.8 mg/dL (8.7-10.3); Globulin 1.9 g/dL (1.6-3.3); Total Bilirubin 0.5 mg/dL (0.3-1.2); Total Protein 5.5 g/dL (6.2-8.2)
[2024-02-20 09:53] LABS: Lipase 63 U/L (14-60)
--- NOTE | 2024-02-20 10:24 | P.PN ---
Subjective Progress Note Date: 02/20/24 Principal diagnosis: Pancreatitis This a pleasant 88-year-old male with a past medical history of diabetes mellitus on Ozempic, pancreatitis, CHF, atrial fibrillation on Eliquis, hypertension, coronary artery disease and bladder cancer status post chemo diagnosed in 2019. Patient states he started getting epigastric pain Agata night not associated with any nausea or vomiting. States he had this once before 1 to 2 years ago. States he was diagnosed with pancreatitis but he was unsure of the etiology. He denies any current alcohol use but states that he was a heavy drinker and drinks daily for 8 to 10 years but he quit 25 years ago. Patient presented with an elevated lipase of 3956, no elevation in his LFTs, no leukocytosis. Apparently patient has been on Ozempic for his diabetes mellitus and was thought that could be the cause of his pancreatitis. They had stopped it and then resumed it. Today patient states his abdominal pain is quite a bit better and almost resolved. He has been tolerating clear liquid diet without any nausea or vomiting. 02/20/2024 Patient seen and examined today as a follow-up for abdominal pain and acute pancreatitis. He states abdominal pain has resolved. He is tolerating a low- fat diet. No nausea or vomiting. Triglycerides 95 today's repeat labs LFTs unremarkable lipase continues to trend down and is 63 down from 280 yesterday. Objective - Vital Signs Vital signs: Vital Signs Temp 98 F 02/20/24 01:39 Pulse 59 L 02/20/24 01:39 Resp 18 02/20/24 01:39 BP 125/62 02/20/24 01:39 Pulse Ox 95 02/20/24 01:39 FiO2 Intake & Output 02/19/24 02/19/24 02/20/24 06:59 18:59 06:59 Intake Total 716 Balance 716 Weight 92.986 kg Intake: Oral 716 Other: # Voids 2 2 2 - Exam General appearance: The patient is alert, oriented, appears in no acute distress. HET: Head is normocephalic and atraumatic. Conjunctiva pink. Sclera anicteric. Neck: Supple without lymphadenopathy. Abdomen: Soft, nontender, nondistended. Extremities: Normal skin color and turgor. No pedal edema Skin: No rashes, no jaundice Neurological: No focal deficits. Alert and oriented. - Labs CBC & Chem 7: 02/20/24 04:33 02/20/24 04:33 Labs: Abnormal Lab Results - Last 24 Hours (Table) 02/19/24 02/19/24 02/19/24 Range/Units 05:48 05:48 12:01 MCHC 31.4 L (32.0-37.0) g/dL RDW 14.6 H (11.5-14.5) % Plt Count 89 L (140-440) X 10*3/uL Chloride 110 H (96-109) mmol/L Glucose 128 H (70-110) mg/dL POC Glucose (mg/dL) 259 H (70-110) mg/dL Total Protein 6.0 L (6.2-8.2) g/dL Lipase 280 H (14-60) U/L 02/19/24 02/19/24 Range/Units 17:28 20:38 MCHC (32.0-37.0) g/dL RDW (11.5-14.5) % Plt Count (140-440) X 10*3/uL Chloride (96-109) mmol/L Glucose (70-110) mg/dL POC Glucose (mg/dL) 136 H 159 H (70-110) mg/dL Total Protein (6.2-8.2) g/dL Lipase (14-60) U/L Assessment and Plan (1) Pancreatitis Narrative/Plan: 88-year-old male with a history of diabetes mellitus on Ozempic with a previous history of pancreatitis after starting Ozempic for diabetes mellitus. Patient had stopped and then restarted the Ozempic. He has been on it for several months without any problems until now. He presented with elevated lipase and CT evidence of pancreatitis likely medication induced secondary to Ozempic. Will obtain triglycerides. Patient does have a remote history of alcoholism however has not drank in over 25 years. Recommend discontinuing Ozempic. Continue to treat symptomatically. No further workup indicated. Current Visit: Yes Status: Acute Code(s): K85.90 - ACUTE PANCREATITIS WITHOUT NECROSIS OR INFECTION, UNSP SNOMED Code(s): 02116146 (2) Diabetes mellitus Current Visit: Yes Status: Acute Code(s): E11.9 - TYPE 2 DIABETES MELLITUS WITHOUT COMPLICATIONS SNOMED Code(s): 43371844 (3) Coronary artery disease Current Visit: No Status: Acute Code(s): I25.10 - ATHSCL HEART DISEASE OF [place] CORONARY ARTERY W/O ANG PCTRS SNOMED Code(s): 46376201 (4) Hyperlipidemia Current Visit: No Status: Acute Code(s): E78.5 - HYPERLIPIDEMIA, UNSPECIFIED SNOMED Code(s): 20611391 Plan: 1. Continue symptomatic and supportive care 2. Continue low-fat diet 3. Pain medication as needed 4. Recommend discontinuing Ozempic 5. No further workup indicated Thank you for this consultation, a patient is cleared by gastroenterology for discharge. We will sign off at this time. Dr. Joe Carey I agree with the dictator's note, documented as a scribe by Mavis Madera.
--- NOTE | 2024-02-20 10:56 | P.DS ---
Providers Date of admission: 02/18/24 14:32 Expected date of discharge: 02/20/24 Attending physician: Niko Abraham Consults: 02/18/24 14:29 Consult Physician Urgent Consulting Provider: Carol Carey Consult Reason/Comments: acute pancreatitis Do you want consulting provider notified?: Yes Primary care physician: Niko Abraham Hospital Course: HISTORY OF PRESENT ILLNESS This is an 88-year-old male patient of mine with past medical history of coronary artery disease, hypertension, hyperlipidemia, diabetes mellitus type 2, generalized anxiety disorder, bladder cancer under the care of Dr. Navarrete, chronic gout, history of recurrent pancreatitis, he was hospitalized last in August 2022 for acute pancreatitis, patient woke up in the morning today with lef t-sided chest pain associated with minimal burping, minimal nausea no vomiting, he ended up coming to the emergency department for evaluation, he had a twelve- lead EKG did not show evidence of acute abnormalities, his vital signs were okay, his lipase was quite elevated, at 3956, had a CT scan of the abdomen pelvis that show evidence of acute pancreatitis, because of the presentation he was started on IV fluid resuscitation, pain management, he was admitted to the hospital for further evaluation GI consultation was obtained from Dr. Carey. 02/18: Patient sitting up in bed in no apparent distress, his feet a lot better today, he continues to have some pressure in the epigastric area, he has no nausea or vomiting at this time, he was started on IV fluid resuscitation, he is receiving morphine for pain control, he was seen earlier by gastroenterology, patient will be started on full liquid diet, repeat the patient amylase and lipase in the next 24 hours. His lipase today is 280 much better improvement. 02/19: Patient continues to feel much improvement. Patient has been followed by GI during his hospitalization for pancreatitis. Recommendations are to discontinue Ozempic. Continue the low-fat diet. Patient is cleared for discharge from GI. Blood pressure 138/70, heart rate 56, pulse ox 96% on room air, afebrile. Repeat blood work reveals hemoglobin 12.5, WBC 5.59. Creatinine 0.9, sodium 144, potassium 4.4, chloride 115. CO2 20. Lipase 63. Patient will be discharged home today once all arrangements are completed. DISCHARGE DIAGNOSES 1. Acute pancreatitis that has been recurrent due to possible the use of GLP-1 receptor agonist. 2. Hypertension and hypertensive cardiovascular disease. 3. Mixed hyperlipidemia. 4. Diabetes mellitus type 2. 5. paroxysmal atrial fibrillation. 6. History of bladder cancer under the care Dr Navarrete status post treatment. 7. Chronic gout. Discharge plan: Home Greater than 35 minutes was utilized and coordinating patient's discharge. Impression and plan of care have been directed as dictated by the signing physician. Anamaria Black nurse practitioner acting as scribe for signing physician. Patient Condition at Discharge: Stable Plan - Discharge Summary Discharge Rx Participant: No New Discharge Prescriptions: Continue Rosuvastatin Calcium [Crestor] 10 mg PO DAILY allopurinoL [Zyloprim] 100 mg PO DAILY Insulin Glargine,Hum.rec.anlog [Lantus Solostar Pen] 35 unit SQ HS lisinopriL [Zestril] 2.5 mg PO DAILY tab Apixaban [Eliquis] 5 mg PO BID Tamsulosin [Flomax] 0.4 mg PO BID Ascorbic Acid [Vitamin C] 1,000 mg PO DAILY Insulin Lispro [humaLOG Kwikpen] 10 unit SQ AC-TID Ferrous Sulfate [Iron (65 MG Elemental)] 325 mg PO DAILY Discontinued Semaglutide [Ozempic] 1 mg SQ BHAKTA Discharge Medication List Insulin Glargine,Hum.rec.anlog [Lantus Solostar Pen] 35 unit SQ HS 02/21/14 [History] Rosuvastatin Calcium [Crestor] 10 mg PO DAILY 02/21/14 [History] allopurinoL [Zyloprim] 100 mg PO DAILY 02/21/14 [History] lisinopriL [Zestril] 2.5 mg PO DAILY tab 12/07/17 [Rx] Insulin Lispro [humaLOG Kwikpen] 10 unit SQ AC-TID 10/04/20 [History] Apixaban [Eliquis] 5 mg PO BID 11/13/20 [History] Tamsulosin [Flomax] 0.4 mg PO BID 07/30/21 [History] Ascorbic Acid [Vitamin C] 1,000 mg PO DAILY 02/18/24 [History] Ferrous Sulfate [Iron (65 MG Elemental)] 325 mg PO DAILY 02/18/24 [History] Follow up Appointment(s)/Referral(s): Niko Abraham MD [Primary Care Provider] - 1 Week Discharge Disposition: HOME SELF-CARE
== END 2024-02-20 11:32 | disposition home or self-care (01) ==
LOC: EC 10:06 → 6NMEDSUR 14:32
PROVIDERS: ADMIT Internal Medicine; ATTEND Internal Medicine
DX: K85.90 Acute pancreatitis without necrosis or infection, unspecified (principal); I25.10 Atherosclerotic heart disease of native coronary artery without angina pectoris; I48.0 Paroxysmal atrial fibrillation; E11.9 Type 2 diabetes mellitus without complications; E78.2 Mixed hyperlipidemia; N40.0 Benign prostatic hyperplasia without lower urinary tract symptoms; F32.A Depression, unspecified; I11.0 Hypertensive heart disease with heart failure; I50.9 Heart failure, unspecified; F41.1 Generalized anxiety disorder; M1A.9XX0 Chronic gout, unspecified, without tophus (tophi); Z85.51 Personal history of malignant neoplasm of bladder; Z87.891 Personal history of nicotine dependence; Z92.21 Personal history of antineoplastic chemotherapy; Z79.01 Long term (current) use of anticoagulants; Z79.4 Long term (current) use of insulin; Z79.85 Long-term (current) use of injectable non-insulin antidiabetic drugs; Z79.899 Other long term (current) drug therapy
CPT/HCPCS: 96374; 99285; 36415; 93005; 80053 ×3; 83690 ×3; 83735; 84478; 84484; 85025 ×3; 85610; 85730; 71046; 74177; G0378 ×3; Q9967; J2470